=== PATIENT | male | born 1960 | race Caucasian/White ===

== ENCOUNTER 2020-11-14 20:05 | Emergency (ER) | payer MEDICAID, SELFPAY ==
[2020-11-14 20:31] LABS: Basophils # 0.1 10^3/uL (0.0-0.1); Basophils % 0.8 %; Eosinophils # 0.9 10^3/uL (0.0-0.8); Eosinophils % 5.2 %; Hematocrit 48.7 % (42.0-52.0); Hemoglobin 15.8 g/dL (11.7-16.6); Lymphocytes # 2.6 10^3/uL (0.8-4.8); Lymphocytes % 14.9 %; Mean Corpuscular HGB Conc 32.4 g/dL (30.0-36.0); Mean Corpuscular Hemoglobin 28.9 pg (28.0-34.0); Mean Platelet Volume 9.8 fL (7.4-10.4); Monocytes # 1.2 10^3/uL (0.2-0.9); Monocytes % 6.9 %; Neutrophils # 12.45 10^3/uL (1.8-7.7); Neutrophils % 71.4 %; Nucleated Red Blood Cells % 0 %; Platelet Count 349 10^3/cmm (130-400); Red Blood Count 5.47 10^6/uL (4.1-5.3); Red Cell Distribution Width 13.2 % (12.1-15.1); White Blood Count 17.4 10^3/uL (4.0-10.0)
[2020-11-14 21:20] LABS: Troponin(5th) Baseline 14 ng/L (0-15)
[2020-11-14 21:23] LABS: Alanine Aminotransferase 19 U/L (0-41); Albumin Level 3.9 g/dL (3.5-5.2); Alkaline Phosphatase 163 IU/L (40-130); Anion Gap 19.1 (5-19); Aspartate Amino Transferase 20 U/L (0-40); Blood Urea Nitrogen 14 mg/dL (8-23); Calcium 9.4 mg/dL (8.5-10.5); Carbon Dioxide 26 mmol/L (22-29); Chloride 97 mmol/L (98-107); Globulin 3.9 g/dL (1.3-4.6); Glucose 100 mg/dL (65-115); Lipase 22 U/L (13-60); NT Pro B Type Natriuretic Pept 153 pg/mL (0-125); Osmolality Calculated 287 mOsm/kg (285-295); Potassium 4.1 mmol/L (3.5-5.1); Sodium 138 mmol/L (136-145); Total Bilirubin 0.5 mg/dL (0.15-1.2); Total Protein 7.8 g/dL (6.6-8.7)
== END 2020-11-14 20:53 ==
LOC: ER 20:22
PROVIDERS: Emergency Provider Family Medicine; PCP Family Medicine
DX: Z53.21 Procedure and treatment not carried out due to patient leaving prior to being seen by health care provider (principal)
CPT/HCPCS: 80053; 83690; 83880; 84484; 85025

== ENCOUNTER 2021-01-16 00:58 | Inpatient (IN) | payer MEDICAID, SELFPAY ==
[2021-01-16] VITALS (49 sets, daily range): BP systolic 100–168; BP diastolic 62–117; PULSE 83–124; RESP 16–27; TEMP 35.8–37.2; O2SAT 89–98; BMI 44.4
--- NOTE | 2021-01-16 01:39 | ECG_ITS ---
[facility] Test Date: 2021-01-16 Pat Name: Leon Rossi Department: Room: Gender: Male Medical Facilities Section Director: : 1960 Requested By: Anneliese Leslie Order Number: [id number] Jean Marie MD: Colin Machado M.D. Measurements Intervals [place] Rate: 113 P: -35 [place]: 134 QRS: 18 QRSD: 141 T: 3 QT: 394 QTc: 542 Interpretive Statements Possible atrial fibrillation with rapid ventricular rate. INDETERMINATE AXIS RIGHT BUNDLE BRANCH BLOCK [120+ ms QRS DURATION, UPRIGHT V1, 40+ ms S IN I/aVL/V4/V5/V6] ST DEPRESSION, CONSIDER SUBENDOCARDIAL INJURY [0.1+ mV ST DEPRESSION] No previous ECG available for comparison Because of the heavy artifacts, the rhythm is difficult to discern. Need to repeat the study Electronically Signed On 01-16-2021 21:15:45 CDT by Colin Machado M.D. [id number]
[2021-01-16 01:50] LABS: Basophils # 0.1 10^3/uL (0.0-0.1); Basophils % 0.3 %; Hematocrit 46.9 % (42.0-52.0); Hemoglobin 15.2 g/dL (11.7-16.6); Lymphocytes # 1.9 10^3/uL (0.8-4.8); Lymphocytes % 5.9 %; Mean Corpuscular HGB Conc 32.4 g/dL (30.0-36.0); Mean Corpuscular Hemoglobin 27.9 pg (28.0-34.0); Mean Corpuscular Volume 86.1 fL (80-94); Mean Platelet Volume 10.6 fL (7.4-10.4); Monocytes # 2.6 10^3/uL (0.2-0.9); Monocytes % 7.8 %; Neutrophils # 27.85 10^3/uL (1.8-7.7); Neutrophils % 84.8 %; Nucleated Red Blood Cells % 0 %; Platelet Count 407 10^3/cmm (130-400); Red Blood Count 5.45 10^6/uL (4.1-5.3); Red Cell Distribution Width 13.8 % (12.1-15.1)
[2021-01-16 01:58] LABS: White Blood Count 32.8 10^3/uL (4.0-10.0)
[2021-01-16 02:03] LABS: Troponin(5th) Baseline 13 ng/L (0-15)
--- NOTE | 2021-01-16 02:08 | XRR_ITS ---
PROCEDURE INFORMATION: Exam: XR Chest Exam date and time: 01/16/2021 2:08 AM Age: 60 years old Clinical indication: Cough and dyspnea; Additional info: Cough, chest pain, SOB TECHNIQUE: Imaging protocol: XR of the chest. Views: 1 view. COMPARISON: No relevant prior studies available. FINDINGS: Lungs: See Pleural spaces finding. Pleural spaces: The right hemidiaphragm is obscured likely secondary to a right pleural effusion. There are hazy and strandy opacities seen in the right lower hemithorax superimposed over the pleural effusion likely representing right basilar atelectasis versus pneumonia. Heart/Mediastinum: Unremarkable. No cardiomegaly. Bones/joints: Unremarkable. XR/XR chest 1V portable [id number] IMPRESSION: 1. There is a right pleural effusion that obscures the right hemidiaphragm. 2. Hazy in strandy opacities are seen superimposed over the pleural effusion compatible with a right basilar atelectasis versus pneumonia.
--- NOTE | 2021-01-16 02:09 | W.ED.SOB ---
Documented by User: CARLIE Ca 01/17/21 07:04 HPI - SOB/Dyspnea General: Chief Complaint: Shortness of Breath/Dyspnea Stated Complaint: SOB Time Seen by Provider: 01/16/21 01:38 Source: patient Mode of arrival: ambulatory Limitations: no limitations History of Present Illness: HPI Narrative: Patient is a nice 60-year-old male who presents to the ED today with a complaint of generalized weakness, productive cough, shortness of breath, chest pain. He states symptoms have been present over the past week. He saw his PCP in [place] who doubled my Lasix and potassium . He states ever since this I have not felt right . Patient has a PMH of CHF, COPD, DM, HTN. He tells me he normally wears 2L O2 continuously and has had to increase this at home. During my examination patient is not wearing oxygen and satting normally. He tells me he is having pain in the right side of his chest with coughing. He is reporting hemoptysis. He has no dysuria, frequency, or urgency but has noticed very dark brown-colored urine. No fevers. No sick contacts. MD elicited complaint: shortness of breath, cough, pain with inspiration and chest pain Pertinent past history: COPD, congestive heart failure and diabetes Onset (ago): day(s) Timing: constant Severity: moderate Relieving factors: nothing Known history of: COPD, congestive heart failure and diabetes Associated symptoms: Reports chest congestion, chest pain, hemoptysis and orthopnea; Deny abdominal pain, fever(s), lightheadedness, nausea, palpitations, syncope or vomiting Treatment prior to arrival: none Related Data: Home oxygen amount: 2 liters Review of Systems Const: Reports: fatigue and malaise; Denies: fever(s), chills, body aches, change in appetite or change in weight Eyes: Denies: change in vision, blurry vision, photophobia, floaters or seeing flashes ENMT: Denies: throat pain, odynophagia, nasal discharge or nasal congestion Card: Reports: chest pain, edema, swelling of feet/ankles, dyspnea on exertion and orthopnea; Denies: palpitations, irregular heart rhythm, lightheadedness, syncope, pre-syncope, leg pain with exertion or acrocyanosis Resp: Reports: dyspnea, productive cough, pain on inspiration, hemoptysis and chest congestion; Denies: wheezing or stridor GI: Denies: abdominal pain, nausea, vomiting or diarrhea : Denies: flank pain or dysuria Musc: Denies: neck pain or back pain Skin/Breast: Denies: rash Neuro: Denies: headache(s), numbness in extremities, weakness in extremities or sensory changes PFS ED PFSH: Medical History (Updated 01/16/21 @ 23:08 by Aman Davis MD) CHF (congestive heart failure) COPD (chronic obstructive pulmonary disease) Diabetes HTN (hypertension) Surgical History History of appendectomy History of cholecystectomy Family History Other Diabetes Social History Smoking and tobacco status: current every day smoker cigarettes Alcohol intake: never Housing: House Physical Exam Const: COMMON NORMALS: no acute distress, patient oriented x3, no limitations and alert GENERAL APPEARANCE: cooperative NUTRITIONAL APPEARANCE: obese morbidly obese ORIENTATION/CONSCIOUSNESS: Yes awake, Yes oriented to person, Yes oriented to place and Yes oriented to time HENMT: COMMON NORMALS: normocephalic and atraumatic HEAD & SCALP: normocephalic and atraumatic Chest: OTHER: TTP R lateral lower chest wall Resp: COMMON NORMALS: normal respiratory effort EFFORT & INSPECTION: Yes able to speak in complete sentences AUSCULTATION: crackles Laterality: bilateral Cardio: COMMON NORMALS: regular rhythm RATE: tachycardic RHYTHM: regular rhythm GI: COMMON NORMALS: Soft to palpation and non-tender INSPECTION: Yes normal to inspection PALPATION: Yes Soft to palpation OTHER: limited secondary to body habitus : COMMON NORMALS: Yes no CVA tenderness BLADDER/KIDNEY EXAM: Yes no CVA tenderness Back/Pelvis: COMMON NORMALS: no CVA tenderness Extremity: GENERAL: Yes edema Neuro: ROBBIE COMA SCALE: document GCS findings Robbie coma scale eye opening: Spontaneous Robbie coma scale verbal response: Orientated [place] coma scale motor response: Obey commands [place] coma scale total score: 15 COMMON NORMALS: patient oriented x3 SENSORIUM/ORIENTATION: Yes alert, Yes oriented to person, Yes oriented to place and Yes oriented to time Skin: COMMON NORMALS: no rashes or lesions noted GENERAL SKIN EXAM: no rashes or lesions noted Course Vital Signs: Vital signs: Vital Signs Temperature 97.5 F L 01/17/21 06:16 Pulse Rate 113 H 01/17/21 06:36 Respiratory Rate 16 01/17/21 06:01 Blood Pressure 137/94 01/16/21 17:15 Pulse Oximetry 94 01/17/21 06:01 MDM - SOB/Dyspnea MDM Narrative: Medical decision making narrative: Patient is a 60-year-old male with significant comorbidities here for complaints of weakness, productive cough, right-sided chest pain, and shortness of breath. He arrives tachycardic. He has a white count of 30.4. He is hypokalemic. CXR showing large right-sided pneumonia. His D-dimer was very elevated therefore CTA imaging is being obtained. Care is transferred to Dr. Torres at shift change. Lab Data: Labs: Lab Results 01/16/21 01/16/21 01/16/21 Range/Units 00:12 00:12 00:12 WBC 32.8 H* (4.0-10.0) 10^3/ uL RBC 5.45 H (4.1-5.3) 10^6/u L Hgb 15.2 (11.7-16.6) g/dL Hct 46.9 (42.0-52.0) % MCV 86.1 (80-94) fL MCH 27.9 L (28.0-34.0) pg MCHC 32.4 (30.0-36.0) g/dL RDW 13.8 (12.1-15.1) % Plt Count 407 H (130-400) 10^3/c mm MPV 10.6 H (7.4-10.4) fL Neut % (Auto) 84.8 % Lymph % (Auto) 5.9 % [place] % (Auto) 7.8 % Eos % (Auto) 0.0 % Baso % (Auto) 0.3 % Neut # (Auto) 27.85 H (1.8-7.7) 10^3/u L Lymph # (Auto) 1.9 (0.8-4.8) 10^3/u L [place] # (Auto) 2.6 H (0.2-0.9) 10^3/u L Eos # (Auto) 0.0 (0.0-0.8) 10^3/u L Baso # (Auto) 0.1 (0.0-0.1) 10^3/u L Nucleated RBC % (a uto) 0 % Nucleated RBCs # 0.0 /100WBC D-Dimer (0-0.59) ug/mIFE U Sodium 130 L (136-145) mmol/L Potassium 2.9 L (3.5-5.1) mmol/L Chloride 85 L (98-107) mmol/L Carbon Dioxide 28 (22-29) mmol/L Anion Gap 19.9 H (5-19) BUN 16 (8-23) mg/dL Creatinine 0.8 (0.7-1.2) mg/dL GFR Calculation 98.0 (90-130) mL/min Glucose 145 H (65-115) mg/dL Calculated Osmolal ity 274 L (285-295) mOsm/k g Lactic Acid (0.5-2.2) mmol/L Calcium 9.6 (8.5-10.5) mg/dL Magnesium (1.7-2.3) mg/dL Total Bilirubin 1.4 H (0.15-1.2) mg/dL AST 16 (0-40) U/L ALT 9 (0-41) U/L Alkaline Phosphata se 117 (40-130) IU/L Lactate Dehydrogen ase (135-225) U/L Troponin T Baselin e 13 (0-15) ng/L NT-Pro-B Natriuret Pep 873 H (0-125) pg/mL Total Protein 7.6 (6.6-8.7) g/dL Albumin 3.0 L (3.5-5.2) g/dL Globulin 4.6 (1.3-4.6) g/dL Procalcitonin (0-0.5) ng/mL SARS-CoV-2 Ag (Rap id) (Negative) 01/16/21 01/16/21 01/16/21 Range/Units 00:12 00:12 00:12 WBC (4.0-10.0) 10^3/ uL RBC (4.1-5.3) 10^6/u L Hgb (11.7-16.6) g/dL Hct (42.0-52.0) % MCV (80-94) fL MCH (28.0-34.0) pg MCHC (30.0-36.0) g/dL RDW (12.1-15.1) % Plt Count (130-400) 10^3/c mm MPV (7.4-10.4) fL Neut % (Auto) % Lymph % (Auto) % [place] % (Auto) % Eos % (Auto) % Baso % (Auto) % Neut # (Auto) (1.8-7.7) 10^3/u L Lymph # (Auto) (0.8-4.8) 10^3/u L [place] # (Auto) (0.2-0.9) 10^3/u L Eos # (Auto) (0.0-0.8) 10^3/u L Baso # (Auto) (0.0-0.1) 10^3/u L Nucleated RBC % (a uto) % Nucleated RBCs # /100WBC D-Dimer 3.64 H (0-0.59) ug/mIFE U Sodium (136-145) mmol/L Potassium (3.5-5.1) mmol/L Chloride (98-107) mmol/L Carbon Dioxide (22-29) mmol/L Anion Gap (5-19) BUN (8-23) mg/dL Creatinine (0.7-1.2) mg/dL GFR Calculation (90-130) mL/min Glucose (65-115) mg/dL Calculated Osmolal ity (285-295) mOsm/k g Lactic Acid (0.5-2.2) mmol/L Calcium (8.5-10.5) mg/dL Magnesium 2.1 (1.7-2.3) mg/dL Total Bilirubin (0.15-1.2) mg/dL AST (0-40) U/L ALT (0-41) U/L Alkaline Phosphata se (40-130) IU/L Lactate Dehydrogen ase 148 (135-225) U/L Troponin T Baselin e (0-15) ng/L NT-Pro-B Natriuret Pep (0-125) pg/mL Total Protein (6.6-8.7) g/dL Albumin (3.5-5.2) g/dL Globulin (1.3-4.6) g/dL Procalcitonin 1.35 H (0-0.5) ng/mL SARS-CoV-2 Ag (Rap id) (Negative) 01/16/21 01/16/21 Range/Units 02:18 02:31 WBC (4.0-10.0) 10^3/ uL RBC (4.1-5.3) 10^6/u L Hgb (11.7-16.6) g/dL Hct (42.0-52.0) % MCV (80-94) fL MCH (28.0-34.0) pg MCHC (30.0-36.0) g/dL RDW (12.1-15.1) % Plt Count (130-400) 10^3/c mm MPV (7.4-10.4) fL Neut % (Auto) % Lymph % (Auto) % [place] % (Auto) % Eos % (Auto) % Baso % (Auto) % Neut # (Auto) (1.8-7.7) 10^3/u L Lymph # (Auto) (0.8-4.8) 10^3/u L [place] # (Auto) (0.2-0.9) 10^3/u L Eos # (Auto) (0.0-0.8) 10^3/u L Baso # (Auto) (0.0-0.1) 10^3/u L Nucleated RBC % (a uto) % Nucleated RBCs # /100WBC D-Dimer (0-0.59) ug/mIFE U Sodium (136-145) mmol/L Potassium (3.5-5.1) mmol/L Chloride (98-107) mmol/L Carbon Dioxide (22-29) mmol/L Anion Gap (5-19) BUN (8-23) mg/dL Creatinine (0.7-1.2) mg/dL GFR Calculation (90-130) mL/min Glucose (65-115) mg/dL Calculated Osmolal ity (285-295) mOsm/k g Lactic Acid 3.2 H (0.5-2.2) mmol/L Calcium (8.5-10.5) mg/dL Magnesium (1.7-2.3) mg/dL Total Bilirubin (0.15-1.2) mg/dL AST (0-40) U/L ALT (0-41) U/L Alkaline Phosphata se (40-130) IU/L Lactate Dehydrogen ase (135-225) U/L Troponin T Baselin e (0-15) ng/L NT-Pro-B Natriuret Pep (0-125) pg/mL Total Protein (6.6-8.7) g/dL Albumin (3.5-5.2) g/dL Globulin (1.3-4.6) g/dL Procalcitonin (0-0.5) ng/mL SARS-CoV-2 Ag (Rap id) Negative (Negative) Discharge Plan Discharge Patient Disposition: Admitted As Inpatient Admit Provider: Jose R Guthrie Clinical Impression: Mass of right lung CAP (community acquired pneumonia) Qualifiers: Laterality: right Lung location: lower lobe of lung Qualified Code(s): J18.9 - Pneumonia, unspecified organism Condition: Serious Coding Level of Care Code ED Blueprinting Machine Operator for Chg Fwd Exam Comprehensive Documented by User: Jarett Torres, 01/16/21 08:54 HPI - SOB/Dyspnea General: Chief Complaint: Shortness of Breath/Dyspnea Stated Complaint: SOB Time Seen by Provider: 01/16/21 01:38 PFS ED PFSH: Medical History (Updated 01/16/21 @ 23:08 by Aman Davis MD) CHF (congestive heart failure) COPD (chronic obstructive pulmonary disease) Diabetes HTN (hypertension) Surgical History History of appendectomy History of cholecystectomy Family History Other Diabetes Social History Smoking and tobacco status: current every day smoker cigarettes Alcohol intake: never Housing: House Course Consultations: Consultation #1: timur Vital Signs: Vital signs: Vital Signs Temperature 97.5 F L 01/17/21 06:16 Pulse Rate 113 H 01/17/21 06:36 Respiratory Rate 16 01/17/21 06:01 Blood Pressure 137/94 01/16/21 17:15 Pulse Oximetry 94 01/17/21 06:01 MDM - SOB/Dyspnea MDM Narrative: Medical decision making narrative: 60-year-old male originally seen by Mrs. Leslie?KWESI Fleming. I agree with her history, evaluation, work-up, and treatment. This patient has hypoxia, shortness of breath, white blood cell count of 33, a low potassium which is being replaced, and pneumonia on chest x-ray. CTA is performed and shows pneumonia with likely empyema. He will be admitted. Lab Data: Labs: Lab Results 01/16/21 01/16/21 01/16/21 Range/Units 00:12 00:12 00:12 WBC 32.8 H* (4.0-10.0) 10^3/ uL RBC 5.45 H (4.1-5.3) 10^6/u L Hgb 15.2 (11.7-16.6) g/dL Hct 46.9 (42.0-52.0) % MCV 86.1 (80-94) fL MCH 27.9 L (28.0-34.0) pg MCHC 32.4 (30.0-36.0) g/dL RDW 13.8 (12.1-15.1) % Plt Count 407 H (130-400) 10^3/c mm MPV 10.6 H (7.4-10.4) fL Neut % (Auto) 84.8 % Lymph % (Auto) 5.9 % [place] % (Auto) 7.8 % Eos % (Auto) 0.0 % Baso % (Auto) 0.3 % Neut # (Auto) 27.85 H (1.8-7.7) 10^3/u L Lymph # (Auto) 1.9 (0.8-4.8) 10^3/u L [place] # (Auto) 2.6 H (0.2-0.9) 10^3/u L Eos # (Auto) 0.0 (0.0-0.8) 10^3/u L Baso # (Auto) 0.1 (0.0-0.1) 10^3/u L Nucleated RBC % (a uto) 0 % Nucleated RBCs # 0.0 /100WBC D-Dimer (0-0.59) ug/mIFE U Sodium 130 L (136-145) mmol/L Potassium 2.9 L (3.5-5.1) mmol/L Chloride 85 L (98-107) mmol/L Carbon Dioxide 28 (22-29) mmol/L Anion Gap 19.9 H (5-19) BUN 16 (8-23) mg/dL Creatinine 0.8 (0.7-1.2) mg/dL GFR Calculation 98.0 (90-130) mL/min Glucose 145 H (65-115) mg/dL Calculated Osmolal ity 274 L (285-295) mOsm/k g Lactic Acid (0.5-2.2) mmol/L Calcium 9.6 (8.5-10.5) mg/dL Magnesium (1.7-2.3) mg/dL Total Bilirubin 1.4 H (0.15-1.2) mg/dL AST 16 (0-40) U/L ALT 9 (0-41) U/L Alkaline Phosphata se 117 (40-130) IU/L Lactate Dehydrogen ase (135-225) U/L Troponin T Baselin e 13 (0-15) ng/L NT-Pro-B Natriuret Pep 873 H (0-125) pg/mL Total Protein 7.6 (6.6-8.7) g/dL Albumin 3.0 L (3.5-5.2) g/dL Globulin 4.6 (1.3-4.6) g/dL Procalcitonin (0-0.5) ng/mL SARS-CoV-2 Ag (Rap id) (Negative) 01/16/21 01/16/21 01/16/21 Range/Units 00:12 00:12 00:12 WBC (4.0-10.0) 10^3/ uL RBC (4.1-5.3) 10^6/u L Hgb (11.7-16.6) g/dL Hct (42.0-52.0) % MCV (80-94) fL MCH (28.0-34.0) pg MCHC (30.0-36.0) g/dL RDW (12.1-15.1) % Plt Count (130-400) 10^3/c mm MPV (7.4-10.4) fL Neut % (Auto) % Lymph % (Auto) % [place] % (Auto) % Eos % (Auto) % Baso % (Auto) % Neut # (Auto) (1.8-7.7) 10^3/u L Lymph # (Auto) (0.8-4.8) 10^3/u L [place] # (Auto) (0.2-0.9) 10^3/u L Eos # (Auto) (0.0-0.8) 10^3/u L Baso # (Auto) (0.0-0.1) 10^3/u L Nucleated RBC % (a uto) % Nucleated RBCs # /100WBC D-Dimer 3.64 H (0-0.59) ug/mIFE U Sodium (136-145) mmol/L Potassium (3.5-5.1) mmol/L Chloride (98-107) mmol/L Carbon Dioxide (22-29) mmol/L Anion Gap (5-19) BUN (8-23) mg/dL Creatinine (0.7-1.2) mg/dL GFR Calculation (90-130) mL/min Glucose (65-115) mg/dL Calculated Osmolal ity (285-295) mOsm/k g Lactic Acid (0.5-2.2) mmol/L Calcium (8.5-10.5) mg/dL Magnesium 2.1 (1.7-2.3) mg/dL Total Bilirubin (0.15-1.2) mg/dL AST (0-40) U/L ALT (0-41) U/L Alkaline Phosphata se (40-130) IU/L Lactate Dehydrogen ase 148 (135-225) U/L Troponin T Baselin e (0-15) ng/L NT-Pro-B Natriuret Pep (0-125) pg/mL Total Protein (6.6-8.7) g/dL Albumin (3.5-5.2) g/dL Globulin (1.3-4.6) g/dL Procalcitonin 1.35 H (0-0.5) ng/mL SARS-CoV-2 Ag (Rap id) (Negative) 01/16/21 01/16/21 Range/Units 02:18 02:31 WBC (4.0-10.0) 10^3/ uL RBC (4.1-5.3) 10^6/u L Hgb (11.7-16.6) g/dL Hct (42.0-52.0) % MCV (80-94) fL MCH (28.0-34.0) pg MCHC (30.0-36.0) g/dL RDW (12.1-15.1) % Plt Count (130-400) 10^3/c mm MPV (7.4-10.4) fL Neut % (Auto) % Lymph % (Auto) % [place] % (Auto) % Eos % (Auto) % Baso % (Auto) % Neut # (Auto) (1.8-7.7) 10^3/u L Lymph # (Auto) (0.8-4.8) 10^3/u L [place] # (Auto) (0.2-0.9) 10^3/u L Eos # (Auto) (0.0-0.8) 10^3/u L Baso # (Auto) (0.0-0.1) 10^3/u L Nucleated RBC % (a uto) % Nucleated RBCs # /100WBC D-Dimer (0-0.59) ug/mIFE U Sodium (136-145) mmol/L Potassium (3.5-5.1) mmol/L Chloride (98-107) mmol/L Carbon Dioxide (22-29) mmol/L Anion Gap (5-19) BUN (8-23) mg/dL Creatinine (0.7-1.2) mg/dL GFR Calculation (90-130) mL/min Glucose (65-115) mg/dL Calculated Osmolal ity (285-295) mOsm/k g Lactic Acid 3.2 H (0.5-2.2) mmol/L Calcium (8.5-10.5) mg/dL Magnesium (1.7-2.3) mg/dL Total Bilirubin (0.15-1.2) mg/dL AST (0-40) U/L ALT (0-41) U/L Alkaline Phosphata se (40-130) IU/L Lactate Dehydrogen ase (135-225) U/L Troponin T Baselin e (0-15) ng/L NT-Pro-B Natriuret Pep (0-125) pg/mL Total Protein (6.6-8.7) g/dL Albumin (3.5-5.2) g/dL Globulin (1.3-4.6) g/dL Procalcitonin (0-0.5) ng/mL SARS-CoV-2 Ag (Rap id) Negative (Negative) Discharge Plan Discharge Patient Disposition: Admitted As Inpatient Admit Provider: Jose R Guthrie Clinical Impression: Mass of right lung CAP (community acquired pneumonia) Qualifiers: Laterality: right Lung location: lower lobe of lung Qualified Code(s): J18.9 - Pneumonia, unspecified organism Condition: Serious Coding Level of Care Code ED Blueprinting Machine Operator for Zaida Fwd Exam Comprehensive
[2021-01-16 02:12] LABS: Alanine Aminotransferase 9 U/L (0-41); Alkaline Phosphatase 117 IU/L (40-130); Anion Gap 19.9 (5-19); Aspartate Amino Transferase 16 U/L (0-40); Blood Urea Nitrogen 16 mg/dL (8-23); Calcium 9.6 mg/dL (8.5-10.5); Carbon Dioxide 28 mmol/L (22-29); Chloride 85 mmol/L (98-107); Globulin 4.6 g/dL (1.3-4.6); Glucose 145 mg/dL (65-115); NT Pro B Type Natriuretic Pept 873 pg/mL (0-125); Osmolality Calculated 274 mOsm/kg (285-295); Sodium 130 mmol/L (136-145); Total Bilirubin 1.4 mg/dL (0.15-1.2); Total Protein 7.6 g/dL (6.6-8.7)
[2021-01-16 02:16] LABS: Potassium 2.9 mmol/L (3.5-5.1)
[2021-01-16] MEDS: lidocaine 1% 5 ML in potassium chloride premix 100 ML 25 ML IV (02:31)
[2021-01-16 02:44] LABS: Lactic Sepsis W/Reflex 3.2 mmol/L (0.5-2.2)
[2021-01-16 02:53] LABS: D Dimer 3.64 ug/mIFEU (0-0.59)
[2021-01-16 02:54] LABS: Magnesium 2.1 mg/dL (1.7-2.3)
[2021-01-16 02:58] LABS: SARS Covid-2 Antigen Negative (Negative)
[2021-01-16 03:01] LABS: Procalcitonin 1.35 ng/mL (0-0.5)
--- NOTE | 2021-01-16 03:01 | CTR_ITS ---
PROCEDURE INFORMATION: Exam: CTA Chest With Contrast Exam date and time: 01/16/2021 3:01 AM Age: 60 years old Clinical indication: Abnormal findings; Abnormal diagnostic tests and abnormal radiologic exam of lung or chest; Elevated d-dimer; Additional info: Tachycardia, SOB, elevated d dimer TECHNIQUE: Imaging protocol: Computed tomographic angiography of the chest with contrast. 3D rendering (Not supervised by radiologist): MIP and/or 3D reconstructed images were created by the technologist. Radiation optimization: All CT scans at this facility use at least one of these dose optimization techniques: automated exposure control; mA and/or kV adjustment per patient size (includes targeted exams where dose is matched to clinical indication); or iterative reconstruction. Contrast material: OMNI 350; Contrast volume: 95 ml; Contrast route: INTRAVENOUS (IV); COMPARISON: CR (CHEST, ) 01/16/2021 2:35 AM RADIATION DOSE METRICS: Total DLP (mGy-cm): 1226.2 FINDINGS: Pulmonary arteries: Normal. No pulmonary emboli. Aorta: Unremarkable. No aortic aneurysm. No aortic dissection. Lungs: There is a masslike infiltrates seen in the superior segment the right lower lobe that measures 3.9 x 4.9 x 4.5 cm . There are patchy opacities and consolidation seen within the right lower lobe superimposed over the loculated pleural fluid collection. There are mildly prominent mediastinal and right hilar lymph nodes present, largest is seen in the posterior mediastinum adjacent to the esophagus near the level of the tomi measuring 11 mm in transverse dimension. Pleural spaces: There is a loculated appearing right pleural effusion. There are mottled gas densities seen within the pleural fluid, findings worrisome for empyema. Heart: Unremarkable. No cardiomegaly. No pericardial effusion. Lymph nodes: Unremarkable. No enlarged lymph nodes. Bones/joints: Unremarkable. No acute fracture. Soft tissues: Unremarkable. CT/CT angio chest PE protcl [id number] IMPRESSION: 1. There is no evidence for pulmonary emboli. 2. There is a loculated pleural fluid collection seen on the right containing some mottled gas densities, findings worrisome for empyema. 3. Patchy opacities, consolidation and masslike infiltrates are seen in the right lower lobe superimposed over the loculated pleural fluid collection. Aspiration pneumonia with anaerobic organisms could have this appearance. Underlying bronchogenic mass cannot be excluded as well. Radiation Dose CTDIVOL = (mGy): DLP = 1226.2 (mGy-cm)
[2021-01-16] MEDS: sodium chloride 0.9% 1,000 ML 150 ML IV (03:36)
[2021-01-16] MEDS: midazolam 1 mg/mL INJ 2 mL 2 MG IVP (03:37)
--- NOTE | 2021-01-16 03:58 | PM.HP ---
Providers/Chief Complaint Primary Care Provider: Michael Washington Chief Complaint: SOB History of Present Illness Leon Rossi is a 60 year old male who has history of diabetes, hypertension, oxygen dependent COPD, CHF, active smoker, presented today with chief complaint of worsening shortness of breath. Patient is stating that his symptoms started on Saturday with worsening of productive cough, lethargy, fatigue. He went to his PCP who increased his Lasix from 40 mg to 80 mg and incremented potassium supplementation. His symptoms did not resolve he has been experiencing orthopnea, PND, shortness of breath on exertion without any chest pain, he is endorsing subjective fevers, denying nausea, vomiting or diarrhea. His last bowel movement was about 4 to 5 days ago. He is endorsing night sweats, 15 to 20 pound weight loss which is unintentional, he is smoking about 2 packs/day. Diagnostics in the ER revealed sepsis secondary to pneumonia, CTA rule out PE, diagnostics leukocytosis, thrombocytosis, hypokalemia, received Levaquin in the ER, normal saline was started at 150 mL/h which I would discontinue, D-dimer 3000, will request urine antigens and procalcitonin, lactic acid 3.2 IMPRESSION: 1. There is no evidence for pulmonary emboli. 2. There is a loculated pleural fluid collection seen on the right containing some mottled gas densities, findings worrisome for empyema. 3. Patchy opacities, consolidation and masslike infiltrates are seen in the right lower lobe superimposed over the loculated pleural fluid collection. Aspiration pneumonia with anaerobic organisms could have this appearance. Underlying bronchogenic mass cannot be excluded as well. Review of Systems Const: Reports: fever(s), chills, body aches, change in appetite, change in weight, malaise and night sweats Eyes: Denies: change in vision ENMT: Denies: throat pain Card: Reports: swelling of feet/ankles, dyspnea on exertion and orthopnea; Denies: chest pain Resp: Reports: dyspnea and productive cough GI: Reports: abdominal pain and constipation; Denies: nausea or vomiting : Denies: flank pain Musc: Reports: extremity swelling; Denies: neck pain Skin/Breast: Denies: new lesions Neuro: Denies: headache(s) Psych: Denies: anxiety Endo: Denies: polyuria Saad/Lymph: Denies: easy bruising All/Imm: Denies: urticaria Medications/Allergies Allergies Allergy/AdvReac Type Severity Reaction Status Date / Time Antibiotic Allergy Intermediate ADR-Numbnes Uncoded 01/16/21 01:25 s PFSH Acute PFSH: Medical History (Updated 01/16/21 @ 05:38 by Jose R Guthrie MD) CHF (congestive heart failure) COPD (chronic obstructive pulmonary disease) Diabetes HTN (hypertension) Surgical History (Updated 01/16/21 @ 05:37 by Jose R Guthrie MD) History of appendectomy History of cholecystectomy Family History (Updated 01/16/21 @ 05:37 by Jose R Guthrie MD) Other Diabetes Social History (Updated 01/16/21 @ 05:37 by Jose R Guthrie MD) Smoking and tobacco status: current every day smoker cigarettes Alcohol intake: never Substance/Drug Use: never Housing: House Vitals/I&O/Wt Last Vital Signs Temp 99.0 F 01/16/21 01:13 Pulse 116 H 01/16/21 03:35 Resp 18 01/16/21 03:35 BP 135/100 01/16/21 03:35 Pulse Ox 93 01/16/21 03:35 Weight last 48 hrs Weight 140.614 kg Physical Exam Narrative: EXAM NARRATIVE: Middle-age male morbidly obese currently saturating well on room air Clinically fluid overloaded, S1, S2 Signs of heart failure Mottled skin appearance from knees No active signs of gangrene or cyanosis Bilateral breath sounds with rhonchi and crackles at the base with diminished sounds at right lung base Distended abdomen nontender no signs of peritonitis Lower extremity pitting edema EOMI, PERRLA No neurological deficits Awake alert oriented x3 GCS 15 Data : 01/16/21 00:12 01/16/21 00:12 Micro: Microbiology 01/16/21 02:31 Blood Culture - Preliminary Blood SPECIMEN COLLECTED 01/16/21 02:16 Blood Culture - Preliminary Blood SPECIMEN COLLECTED A&P Assessment and plan (1) Sepsis: Status: Acute (2) Hypokalemia: Status: Acute (3) CHF exacerbation: Status: Acute (4) CAP (community acquired pneumonia): Status: Acute (5) Mass of right lung: Status: Acute Additional A&P Information Sepsis Criteria met with tachypnea, tachycardia, lactic acid, leukocytosis, CTA rule out PE loculated pleural effusion rule out empyema, will need chest tube placement and pulmonary consult in the morning Superior segment of right lower lobe showing masslike infiltrate 3.9 x 4.9 x 4.5 cm I will start him on broad-spectrum antibiotics and keep him n.p.o. Judicious use of fluids because of CHF exacerbation Currently saturating well on room air Requested urine antigen, blood culture We will admit to ICU, patient does endorse night sweats and 50 pound weight loss, heavy smoker, will need bronchoscopy and histopathological diagnosis to rule out malignancy Hypokalemia: This seems secondary to recent increase in Lasix dosage Potassium to be repleted before initiating Bumex Check magnesium level CHF exacerbation Will request echo, clinically looks fluid overloaded No active chest pain no signs of ACS He has chronic blue bloater appearance which would explain his abnormal transaminases as well N.p.o. Full code DVT prophylaxis avoid anticoagulation as he will need chest tube placement Attestations Medical Necessity Statement*: Anticipating stay in the hospital cross more than 2 midnights will need management for right lung mass, empyema, sepsis Time Spent in Patient Care: (>than 50% of time spent in counselling and/or direct pt care on unit). 35mins Coding Level of Care Code Acute Administrative Hearing Officer for g Fwd Diagnoses Sepsis A41.9 Hypokalemia E87.6 CHF exacerbation I50.9 CAP (community acquired pneumonia) J18.9 Mass of right lung R91.8
[2021-01-16] MEDS: iodixanol 320 mg/mL 100mL Btl IV (04:00)
[2021-01-16 04:07] LABS: Reflex Lactate Order REFLEX LACTIC ORDERD
--- NOTE | 2021-01-16 04:52 | PC.NURSE ---
attempted to call report and nurse was busy at this time.
--- NOTE | 2021-01-16 06:03 | PC.PHAR ---
Vancomycin is dosed at 1250mg IVPB evvery 8 hours to produce a predicted trough level of 13.16 (population based pharmacokinetic analysis). A trough level has been ordered from the lab to be obtained before the fourth dose to confirm and adjust.
[2021-01-16 06:37] LABS: Lactate Dehydrogenase 148 U/L (135-225)
[2021-01-16] MEDS: piperacillin-tazobactam 3.375 GM in sodium chloride 0.9% (plus) 50 ML IV ×3 (06:47→20:30)
[2021-01-16] MEDS: potassium chloride oral liq 20 mEq/15 mL UDC 40 MEQ PO (06:57)
--- NOTE | 2021-01-16 07:15 | PC.NURSE ---
ASSUMING CARE Patient brought to unit from Med/Surg unit. Patient is on room air, alert and oriented. Normal saline running at 150 mL/hour, potassium replacement finished, and zosyn hung. Report given to CARLOS Haji.
--- NOTE | 2021-01-16 09:17 | PC.NURSE ---
DR bass and Dr fuentes at bedside verbal instructions received to start lactulose 15mg po BID and a one time dose of levoquin PO 750mg
[2021-01-16] MEDS: bumetanide 1 mg Tablet PO (09:27)
[2021-01-16] MEDS: sennosides-docusate Tablet 1 TAB PO (09:27)
[2021-01-16] MEDS: levoFLOXacin 750 mg Tablet PO (09:27)
[2021-01-16] MEDS: lactulose oral liq 20 gm/30 mL UDC 15 GM PO ×2 (09:28→20:27)
[2021-01-16] MEDS: vancomycin 1,250 MG/250 ML PIGGYBACK 250 MG IV (10:44)
--- NOTE | 2021-01-16 11:03 | PM.PN ---
Subjective Subjective: Interval history: overnight labs and H&P reviewed. No acute interim events. Intermittent A fib noted on telemetry, Planned for bronchoscopy this afternoon. Not enough fluid to safely attempt thoracentesis Medications: Reviewed: Yes Vitals/I&O/Wt Last Vital Signs Temp 98.0 F 01/16/21 06:25 Pulse 107 H 01/16/21 08:02 Resp 16 01/16/21 08:02 BP 155/99 01/16/21 07:30 Pulse Ox 92 01/16/21 08:02 01/15/21 01/16/21 01/16/21 22:59 06:59 14:59 Intake Total 105 / 105 1050 / 1050 Balance 105 / 105 1050 / 1050 Weight last 48 hrs Weight 140.614 kg Physical Exam Narrative: EXAM NARRATIVE: GEN: Awake, alert and oriented, no acute distress CVS: S1S2 N RS: Reducd breath sounds RLL Abd: Soft, nt/nd , bs+ CASE MANAGEMENT SOCIAL WORKER: no focal neuro deficits Ext: 1+ pitting edema B/L LE Data : 01/16/21 00:12 01/16/21 00:12 Micro: Microbiology 01/16/21 02:31 Blood Culture - Preliminary Blood SPECIMEN COLLECTED 01/16/21 02:16 Blood Culture - Preliminary Blood SPECIMEN COLLECTED A&P Assessment and plan (1) Sepsis: Status: Acute (2) Hypokalemia: Status: Acute (3) CHF exacerbation: Status: Acute (4) CAP (community acquired pneumonia): Status: Acute Qualifiers: Laterality: right Lung location: lower lobe of lung Qualified Code(s): J18.9 - Pneumonia, unspecified organism (5) Mass of right lung: Status: Acute Additional A&P Information Sepsis Likely secondary to pneumonia +/- empyema, currently under evalaution, cannot exclude post obstructive pneumonia from mass at this time. Criteria met with tachypnea, tachycardia, lactic acid, leukocytosis, CTA ruled out PE ; loculated pleural effusion noted, no good window to drain safely Appreciate pulmonary assessment planned for bronchoscopy this afternoon Superior segment of right lower lobe showing masslike infiltrate 3.9 x 4.9 x 4.5 cm continue zosyn, vancomycin and levaquin empirically cytology and cx from bronch and BAL aspirate Requested urine antigen, blood culture, pending Hypokalemia: This seems secondary to recent increase in Lasix dosage Potassium replted Intermittent A fib: not new per history, has been evaluated by showroom executive director in [place], was told he has a leaky valve but has not been recommended surgical correction or anticoagulation. Echo requested resume metoprolol No active chest pain no signs of ACS N.p.o. Full code DVT prophylaxis: SCD for now until bronchoscopy Attestations Medical Necessity Statement*: empyema, possible lung mass, sepsis, needs iv abx. bronchoscopy and furthjer assessment Critical Care Time: The high probability of a clinically significant, sudden or life threatening deterioration of the patient's [respiratory] system(s) required my full and direct attention, intervention and personal management. The critical care time is as shown. This time is in addition to time spent performing any reported procedures but includes the following: [x] Data and vital sign review and interpretation [x] Patient assessment, examination and intervention [x] Documentation [x] Medication orders and management Critical Care Time (min): 40 Coding Level of Care Code Acute Technical Editor for [facility] Fwd Diagnoses Sepsis A41.9 Hypokalemia E87.6 CHF exacerbation I50.9 CAP (community acquired pneumonia) J18.9 Laterality: right Lung location: lower lobe of lung Mass of right lung R91.8
--- NOTE | 2021-01-16 11:15 | USCV_ITS ---
Leon Rossi Age: 60 Gender: M : 1960 Exam Date: 01/16/2021 14:23 Ordering Phys: Shauna Toussaint MD Technologist: Exam Location: [facility] – [place] Indication: SOB BP: 148 / 82 HR: 82 Rhythm: Sinus Technical Quality: Suboptimal MEASUREMENTS (Male / Female) Normal Values 2D ECHO LV Ejection Fraction MOD 2C 64.2 % LV Ejection Fraction 2C AL 64.0 % DOPPLER AV Peak Velocity 206.0 cm/s LVOT Peak Velocity 80.0 cm/s MV Area PHT 5.0 cm squared Mitral E to A Ratio 0.8 MV E' Velocity 93.0 cm/s TR Peak Velocity 179.0 cm/s TR Peak Gradient 12.8 mmHg TV Peak E Velocity 124.0 cm/s Right Atrial Pressure 3.0 mmHg Pulmonary Artery Systolic Pressu 15.8 mmHg FINDINGS Left Ventricle This is a limited 2D echocardiogram using echo contrast. LV size is normal. Ejection fraction estimated to be 64%. No significant wall motion abnormalities noted. No filling defects were noted. Some evidence of grade 1 left ventricular diastolic dysfunction. Right Ventricle Right Atrium Left Atrium Mitral Valve Aortic Valve [id number] aortic valve regurgitation. Tricuspid Valve Pulmonic Valve Pericardium No pericardial effusion. Aorta CONCLUSIONS Normal LV size ejection fraction of 64%. No significant wall motion abnormalities noted. No filling defects were noted. Some evidence of grade 1 left ventricular diastolic dysfunction. [id number] aortic valve regurgitation. This is a limited 2D examination with a contrast echo Dr Colin Machado MD FACC (Electronically Signed) Final Date: 17 January 2021 09:20 S
[2021-01-16] MEDS: metoprolol tartrate 25 mg Tablet PO (12:34)
--- NOTE | 2021-01-16 12:48 | PC.CHAP ---
Pastoral Care Encounter/Spiritual Assessment Type of Contact [] Declined private duty nurse visit [] Patient/Family/Request visit [] Outpatient visit [x] Follow-up visit [] Physician referral [] Code/Alert [] Routine visit [] Staff referral [] Actively dying [x] Patient sleeping [] Family support [] [] Out of room [] Palliative care [] [] Receiving care in room [] Pre-surgical visit [] Trauma [] Long length of stay [] ICU visit [] Other: Relational/Emotional Strength [] Patient feels connected with others/family/visitors/staff [] Distress [] Loneliness/isolation [] Abandonment Spirituality of Patient [] Person of Alexsandra [] Attends Christianity of their Alexsandra [] Believes in Prayer [] Reads Bible or Sikh materials [] There are Spiritual issues to be addressed Cylindrical Mixer Interventions [] Prayer [] Active listening [] Non-anxious presence [] Spiritual/emotional support [] Crisis/trauma care [] Spiritual counseling [] Bereavement support [] Provided bereavement packet [] Provided Bible/devotional materials [] Provided toy/stuffed animal, coloring book to patient or family member [] Provided Communion [] Anointing/[place] [] Salvation [] Completed spiritual assessment [] Other: Impact on Illness or Injury [] Angry [] Fearful [] Anxious [] Often cries [] Exhaustion [] Unable to work [] Unable to attend shinto [] Unable to walk/stand [] Unable to read [] Unable to drive [] Unable to eat/drink [] Unable to sleep [] Unable to be with family [] Patient intubated [] Other: Summary Time spent with patient x
--- NOTE | 2021-01-16 12:53 | PC.CHAP ---
Pastoral Care Encounter/Spiritual Assessment Type of Contact [] Declined environmental professional visit [] Patient/Family/Request visit [] Outpatient visit [x] Follow-up visit [] Physician referral [] Code/Alert [] Routine visit [] Staff referral [] Actively dying [x] Patient sleeping [] Family support [] [] Out of room [] Palliative care [] [] Receiving care in room [] Pre-surgical visit [] Trauma [] Long length of stay [] ICU visit [] Other: Relational/Emotional Strength [] Patient feels connected with others/family/visitors/staff [] Distress [] Loneliness/isolation [] Abandonment Spirituality of Patient [] Person of Alexsandra [] Attends Faith of their Alexsandra [] Believes in Prayer [] Reads Bible or Scientology materials [] There are Spiritual issues to be addressed Commercial Pest Control Representative Interventions [] Prayer [] Active listening [] Non-anxious presence [] Spiritual/emotional support [] Crisis/trauma care [] Spiritual counseling [] Bereavement support [] Provided bereavement packet [] Provided Bible/devotional materials [] Provided toy/stuffed animal, coloring book to patient or family member [] Provided Communion [] Anointing/[place] [] Salvation [] Completed spiritual assessment [] Other: Impact on Illness or Injury [] Angry [] Fearful [] Anxious [] Often cries [] Exhaustion [] Unable to work [] Unable to attend mormonism [] Unable to walk/stand [] Unable to read [] Unable to drive [] Unable to eat/drink [] Unable to sleep [] Unable to be with family [] Patient intubated [] Other: Summary Time spent with patient
[2021-01-16] MEDS: perflutren protein-a microsphr 0.22 mg/mL SDV 3 mL IV (14:35)
--- NOTE | 2021-01-16 14:58 | PC.RESP ---
SMOKING CESSATION AND PULMONARY REHAB INFORMATION SENT TO PATIENT.
--- NOTE | 2021-01-16 15:12 | ANES.PREANE2 ---
Pre-Anesthetic Assessment Pre-Anesthetic Assessment: Height/Weight: Height 1.78 m Weight 140.614 kg Temp Pulse Resp BP Pulse Ox 98.0 F 105 H 21 H 118/76 92 01/16/21 06:25 01/16/21 12:15 01/16/21 12:15 01/16/21 12:15 01/16/21 12:15 Proposed Procedure: Operation Date: 01/16/21 15:00 Proposed Procedures p Bronchoscopy(Not Applicable) - Aman Harris DatarMD Was Beta Viola taken within 24 hours: Yes Last Intake: 00:00 Social: Packs per day: 2 Exam: Pre-Anes Outpt Exam: alert, oriented x 3, clear to auscultation bilaterally and regular rate & rhythm Airway: Submandibular: WNL Cervical ROM: WNL MP: 2 (khan) Dentition: Chipped Additional comments: 3 teeth History/ROS: No significant history except as noted and No significant complaints Pulmonary: Pulmonary: COPD, Cough, GLEASON, Sleep apnea and SOB Comments: CPAP CV/HEM: CV/HEM: HTN : : None reported Hepatic: Hepatic: None reported GI: GI: GERD Metabolic: Metabolic: DM and Morbid obesity Musc/skel: Musc/skel: None reported Neuropsych: Neuropsych: Anxiety and Depression Anesthetic Plan: ASA status: 4 Anesthesia: Anesthesia Evaluation and General Risk of > 500 ml blood loss (7ml/kg in children): No Meds/Allergies Current Medications: Current Medications Generic Name Dose Route Start Last Admin Trade Name Freq PRN Reason Stop Dose Admin Piperacillin Sod/T azobactam 50 mls @ 12.5 mls /hr 01/16/21 05:52 01/16/21 14:07 Sod 3.375 gm/ So dium Chloride IV 12.5 mls/hr Q8H LANDON Administration Protocol Vancomycin/PEG/NAD A/Lysine/Water 1,250 mg in 250 m ls @ 250 mls/hr 01/16/21 10:00 01/16/21 11:50 Vancocin IV Infused Q8H LANDON Infusion Lactulose 15 gm 01/16/21 09:15 01/16/21 09:28 Lactulose Oral L iq 20 Gm/30 Ml Udc PO 15 gm Q12H LANDON Administration Metoprolol Tartrat e 25 mg 01/16/21 11:10 01/16/21 12:34 Metoprolol Tartr ate 25 Mg Tablet PO 25 mg DAILY LANDON Administration Senna/Docusate Sod ium 1 tab 01/16/21 09:00 01/16/21 09:27 Sennosides-Docus ate Tablet PO 1 tab DAILY LANDON Administration PFSH Anesthesia PFSH: Medical History (Updated 01/16/21 @ 08:54 by Jarett Torres DO) CHF (congestive heart failure) COPD (chronic obstructive pulmonary disease) Diabetes HTN (hypertension) Surgical History (Updated 01/16/21 @ 05:37 by Jose R Guthrie MD) History of appendectomy History of cholecystectomy Family History (Updated 01/16/21 @ 05:37 by Jose R Guthrie MD) Other Diabetes Social History (Updated 01/16/21 @ 05:37 by Jose R Guthrie MD) Smoking and tobacco status: current every day smoker cigarettes Alcohol intake: never Housing: House Data Anesthesia CBC & Chem 7: 01/16/21 00:12 01/16/21 00:12 Other Labs: Laboratory Results - last 48 hr 01/16/21 01/16/21 01/16/21 00:12 00:12 00:12 WBC 32.8 H* RBC 5.45 H Hgb 15.2 Hct 46.9 MCV 86.1 MCH 27.9 L MCHC 32.4 RDW 13.8 Plt Count 407 H MPV 10.6 H Neut % (Auto) 84.8 Lymph % (Auto) 5.9 [place] % (Auto) 7.8 Eos % (Auto) 0.0 Baso % (Auto) 0.3 Neut # (Auto) 27.85 H Lymph # (Auto) 1.9 [place] # (Auto) 2.6 H Eos # (Auto) 0.0 Baso # (Auto) 0.1 Nucleated RBC % (auto) 0 Nucleated RBCs # 0.0 D-Dimer Sodium 130 L Potassium 2.9 L Chloride 85 L Carbon Dioxide 28 Anion Gap 19.9 H BUN 16 Creatinine 0.8 GFR Calculation 98.0 Glucose 145 H Calculated Osmolality 274 L Lactic Acid Calcium 9.6 Magnesium Total Bilirubin 1.4 H AST 16 ALT 9 Alkaline Phosphatase 117 Lactate Dehydrogenase Troponin T Baseline 13 NT-Pro-B Natriuret Pep 873 H Total Protein 7.6 Albumin 3.0 L Globulin 4.6 Procalcitonin SARS-CoV-2 Ag (Rapid) 01/16/21 01/16/21 01/16/21 00:12 00:12 00:12 WBC RBC Hgb Hct MCV MCH MCHC RDW Plt Count MPV Neut % (Auto) Lymph % (Auto) [place] % (Auto) Eos % (Auto) Baso % (Auto) Neut # (Auto) Lymph # (Auto) [place] # (Auto) Eos # (Auto) Baso # (Auto) Nucleated RBC % (auto) Nucleated RBCs # D-Dimer 3.64 H Sodium Potassium Chloride Carbon Dioxide Anion Gap BUN Creatinine GFR Calculation Glucose Calculated Osmolality Lactic Acid Calcium Magnesium 2.1 Total Bilirubin AST ALT Alkaline Phosphatase Lactate Dehydrogenase 148 Troponin T Baseline NT-Pro-B Natriuret Pep Total Protein Albumin Globulin Procalcitonin 1.35 H SARS-CoV-2 Ag (Rapid) 01/16/21 01/16/21 02:18 02:31 WBC RBC Hgb Hct MCV MCH MCHC RDW Plt Count MPV Neut % (Auto) Lymph % (Auto) [place] % (Auto) Eos % (Auto) Baso % (Auto) Neut # (Auto) Lymph # (Auto) [place] # (Auto) Eos # (Auto) Baso # (Auto) Nucleated RBC % (auto) Nucleated RBCs # D-Dimer Sodium Potassium Chloride Carbon Dioxide Anion Gap BUN Creatinine GFR Calculation Glucose Calculated Osmolality Lactic Acid 3.2 H Calcium Magnesium Total Bilirubin AST ALT Alkaline Phosphatase Lactate Dehydrogenase Troponin T Baseline NT-Pro-B Natriuret Pep Total Protein Albumin Globulin Procalcitonin SARS-CoV-2 Ag (Rapid) Negative Micro: Microbiology 01/16/21 02:31 Blood Culture - Preliminary Blood SPECIMEN COLLECTED 01/16/21 02:16 Blood Culture - Preliminary Blood SPECIMEN COLLECTED Cardiac Studies: No Data to Display
[2021-01-16] MEDS: sodium chloride 0.9% 1,000 ML 30 ML IV (15:41)
--- NOTE | 2021-01-16 16:30 | PC.NURSE ---
Patient back from GI lab after planned procedure Nasal pharyngeal in place with wimple mask in place on 10 L patient coughing up clear white sputum Nasal pharyngeal removed and patient was able to blow his nose and stop coughing. V/S stable
--- NOTE | 2021-01-16 16:49 | PM.OP ---
Operative Report Date of procedure: January 16, 2021 Procedure:BRONCHOSCOPY for airway inspection and obtaining BAL Pre-Operative Diagnosis: Pneumonia Post-Operative Diagnosis: Same Indication: RLL pneumonia Anesthesia: As per anesthesia Pre-procedure Evaluation: Patient was evaluated clinically and ancillary testing reviewed. The risk of having active MTB infection is very low in my clinical judgement. ASA: Malampati score: unable to evaluate due to presence of endotracheal tube Consent: Consents were obtained from patient and placed in the chart Procedure Details: Time out was performed by the procedure team and nursing staff. Vent support maintained on Fio2 100. The bronchoscope was introduced through the ETT. A bronchoscopic airway exam was performed to evaluate the visible tracheobronchial tree to the segmental level. Summary of Significant Findings: -Bronchoscope passed through ET tube to visualize distal trachea which was noted to be normal. Main tomi visualized which was sharp and normal. Clear secretions noted. 6 mL of 2% lidocaine instilled in each mainstem. Then the scope was left bronchial tree was assessed to include the left mainstem bronchus, YANIV, Lingula, and LLL bronchi to the segmental and subsegmental level. No active bleeding noted. Mucosa appeared normal. Clear secretions noted which were suctioned right away Then the scope was passed through the right bronchial tree was assessed to include the right mainstem bronchus, RBI, and RUL/RML/RLL bronchi to the segmental and subsegmental levels. No active bleeding noted. Mucosa appeared edematous at the level of right upper lobe opening, right lower lobe subsegmental openings. Lateral segment of right lower lobe opening is completely occluded with significant circumferential edema. Thick mucoid secretions were noted in the right lower lobe and B6 -everything suctioned as much possible. 90 mL normal saline was instilled in the right lower lobe and 60 mL was instilled in lateral segment of right lower lobe and obtain bronchoalveolar lavage which were sent for bacterial cultures, fungal cultures, AFB and cytology. The bronchoscope was then removed and the procedure terminated. Estimated Blood Loss: None Specimens: Bronchoalveolar lavage was taken from various segments of right lower lobe and sent for microbiology cultures, fungal cultures, AFB and cytology Complications:None; patient tolerated the procedure well. Disposition: Patient remains critically ill and will be transferred to ICU for overnight observation Patient tolerated the procedure well. Aman Davis MD Pulmonary critical Care Medicine [facility] Associated Problem List Diagnoses (1) Mass of right lung: (2) CHF exacerbation: (3) CAP (community acquired pneumonia): Qualifiers: Laterality: right Lung location: lower lobe of lung Qualified Code(s): J18.9 - Pneumonia, unspecified organism (4) Sepsis:
--- NOTE | 2021-01-16 17:47 | ANE.PACU2 ---
Inpatient post-anesthesia follow up: Airway intact: Yes Vital signs: Temperature 96.5 F Pulse Rate [Right Radial] 112 Pulse Rate 94 Respiratory Rate 27 Blood Pressure [Le ft Arm] 110/69 Blood Pressure 137/94 Pulse Oximetry 96 Oxygen Delivery Me thod Room Air Oxygen Flow Rate Fraction of Inspir ed Oxygen Hydration adequate: Yes Nausea and vomiting: No Pain level: 2 Mental status: Baseline
--- NOTE | 2021-01-16 17:50 | PC.NURSE ---
Dr. Davis Notified of all meds on hold transfer orders placed and instructions to obtain chest xray in the am and start patient with IS and flutter valve
[2021-01-16] MEDS: BuSPIRONE 10 mg Tablet PO (20:30)
--- NOTE | 2021-01-16 22:43 | P.CONIM_ITS ---
Providers/Reason For Consult Consulting Physician/Specialty*: Aman Davis MD/ Pulmonary Critical Care Reason for Consult*: RLL Pneumonia Attending Physician: Shauna Toussaint MD Primary Care Provider: Michael Washington History of Present Illness History of Present Illness History of presenting illness: Leon Rossi is a 60 year old male who has history of diabetes, hypertension, oxygen dependent COPD, CHF, active smoker, presented 01/15/21 with chief complaint of worsening shortness of breath for last 3 days with worsening of productive cough, lethargy, fatigue. He went to his PCP who increased his Lasix from 40 mg to 80 mg and incremented potassium supplementation. His symptoms did not improve along with orthopnea, PND, shortness of breath on exertion without a ny chest pain, subjective fevers. Denied nausea, vomiting or diarrhea. His last bowel movement was about 4 to 5 days ago. He is endorsing night sweats, 15 to 20 pound weight loss which is unintentional, he is smoking about 2 packs/day. Diagnostics in the ER revealed sepsis secondary to pneumonia, CTA rule out PE, diagnostics leukocytosis, thrombocytosis, hypokalemia, received Levaquin in the ER, D-dimer 3000, sent for urine antigens and procalcitonin, lactic acid 3.2 Pulmonary consult requested RLL consolidation and loculated pleural effusion Patient seen at bedside today morning Saturating 97% on room air Does not appear in respiratory distress Reported having episodes of vomitings few days ago and endorses possible aspiration CT evidence of loculated pleural collection seen on the right side containing some material gas densities findings worrisome for empyema. Patchy opacities and consolidation and masslike infiltrate seen in the RLL superimposed over loculated pleural fluid collections with underlying bronchogenic mass cannot be excluded as well Perform bronchoscopy today afternoon and BAL taken from RLL sent for bacterial, fungal, AFB cultures and cytology Labs and imaging reviewed and pertinent findings incorporated in assessment and plan Review of Systems General: Reports: 10 or more systems reviewed and unremarkable except in HPI and below Meds/Allergies Home Medications and Allergies Home Medications Medication Instructions Recorded Confirmed Last Taken Type albuterol sulfate [Ventolin HFA] 2 puff INHALATION Q6H PRN 01/16/21 01/16/21 01/15/21 History amitriptyline 100 mg PO DAILY 01/16/21 01/16/21 01/14/21 History buspirone 10 mg PO TID 01/16/21 01/16/21 01/15/21 History furosemide 40 mg PO DAILY 01/16/21 01/16/21 01/15/21 History metoprolol tartrate 25 mg PO DAILY 01/16/21 01/16/21 01/15/21 History potassium chloride 20 meq PO DAILY 01/16/21 01/16/21 01/15/21 History tiotropium bromide [Spiriva with 1 cap INHALATION DAILY 01/16/21 01/16/21 01/15/21 History HandiHaler] Allergies Allergy/AdvReac Type Severity Reaction Status Date / Time Antibiotic Allergy Intermediate ADR-Numbnes Uncoded 01/16/21 01:25 s Current Medications Current Medications Generic Name Dose Route Start Last Admin Trade Name Iliaq PRN Reason Stop Dose Admin Buspirone HCl 10 mg 01/16/21 15:00 01/16/21 20:30 Buspirone 10 Mg Tablet PO 10 mg TID LANDON Administration Piperacillin Sod/Tazobactam 50 mls @ 12.5 mls/hr 01/16/21 05:52 01/16/21 20:3 0 Sod 3.375 gm/ Sodium Chloride IV 12.5 mls/hr Q8H LANDON Administration Protocol Vancomycin/PEG/NADA/Lysine/Water 1,250 mg in 250 mls @ 250 mls/hr 01/16/21 10:00 01/16/21 11:50 Vancocin IV Infused Q8H LANDON Infusion Sodium Chloride 1,000 mls @ 30 mls/hr 01/16/21 15:00 01/16/21 15:41 Sodium Chloride 0.9% IV 01/17/21 14:59 30 mls/hr .Q24H LANDON Administration Lactulose 15 gm 01/16/21 09:15 01/16/21 20:27 Lactulose Oral Liq 20 Gm/30 Ml Udc PO 15 gm Q12H LANDON Administration Metoprolol Tartrate 25 mg 01/16/21 11:10 01/16/21 12:34 Metoprolol Tartrate 25 Mg Tablet PO 25 mg DAILY LANDON Administration Senna/Docusate Sodium 1 tab 01/16/21 09:00 01/16/21 09:27 Sennosides-Docusate Tablet PO 1 tab DAILY LANDON Administration PFSH Acute PFSH: Medical History (Updated 01/16/21 @ 23:08 by Aman Davis MD) CHF (congestive heart failure) COPD (chronic obstructive pulmonary disease) Diabetes HTN (hypertension) Surgical History History of appendectomy History of cholecystectomy Family History Other Diabetes Social History Smoking and tobacco status: current every day smoker cigarettes Alcohol intake: never Housing: House Vitals/I&O/Wt Last Vital Signs Temp 96.5 F L 01/16/21 15:13 Pulse 83 01/16/21 18:55 Resp 27 H 01/16/21 17:15 BP 137/94 01/16/21 17:15 Pulse Ox 96 01/16/21 17:15 01/16/21 01/16/21 01/16/21 06:59 14:59 22:59 Intake Total 105 / 105 1300 / 1300 50 / 1350 Output Total 225 / 225 250 / 475 Balance 105 / 105 1075 / 1075 -200 / 875 Weight last 48 hrs Weight 310 lb Physical Exam Narrative: EXAM NARRATIVE: General: alert, NAD HEENT: conj clear, EOMI, PERRL, mmm, Neck: supple, no meningismus Heme: no cervical LAP Pulmonary: Reduced breath sounds on right lower lobe Cardiovascular: rrr, nl s1s2, no mrg Abdomen: soft, nt, nd, no r/g, bs+ Extremities: pulses +, 1+ pitting pedal edema, no c/c : no CVA tenderness Skin: intact, no rash MSK: no back or neck pain Neurologic: grossly intact Data Labs: Other Labs: Laboratory Results WBC 32.8 10^3/uL (4.0 -10.0) H* 01/16/21 00:12 RBC 5.45 10^6/uL (4.1 -5.3) H 01/16/21 00:12 Hgb 15.2 g/dL (11.7-1 6.6) 01/16/21 00:12 Hct 46.9 % (42.0-52.0 ) 01/16/21 00:12 MCV 86.1 fL (80-94) 01/16/21 00:12 MCH 27.9 pg (28.0-34. 0) L 01/16/21 00:12 MCHC 32.4 g/dL (30.0-3 6.0) 01/16/21 00:12 RDW 13.8 % (12.1-15.1 ) 01/16/21 00:12 Plt Count 407 10^3/cmm (130 -400) H 01/16/21 00:12 MPV 10.6 fL (7.4-10.4 ) H 01/16/21 00:12 Neut % (Auto) 84.8 % 01/16/21 00:12 Lymph % (Auto) 5.9 % 01/16/21 00:12 Prentiss % (Auto) 7.8 % 01/16/21 00:12 Eos % (Auto) 0.0 % 01/16/21 00:12 Baso % (Auto) 0.3 % 01/16/21 00:12 Neut # (Auto) 27.85 10^3/uL (1. 8-7.7) H 01/16/21 00:12 Lymph # (Auto) 1.9 10^3/uL (0.8- 4.8) 01/16/21 00:12 Prentiss # (Auto) 2.6 10^3/uL (0.2- 0.9) H 01/16/21 00:12 Eos # (Auto) 0.0 10^3/uL (0.0- 0.8) 01/16/21 00:12 Baso # (Auto) 0.1 10^3/uL (0.0- 0.1) 01/16/21 00:12 Nucleated RBC % (a uto) 0 % 01/16/21 00:12 Nucleated RBCs # 0.0 /100WBC 01/16/21 00:12 D-Dimer 3.64 ug/mIFEU (0- 0.59) H 01/16/21 00:12 Sodium 130 mmol/L (136-1 45) L 01/16/21 00:12 Potassium 2.9 mmol/L (3.5-5 .1) L 01/16/21 00:12 Chloride 85 mmol/L (98-107 ) L 01/16/21 00:12 Carbon Dioxide 28 mmol/L (22-29) 01/16/21 00:12 Anion Gap 19.9 (5-19) H 01/16/21 00:12 BUN 16 mg/dL (8-23) 01/16/21 00:12 Creatinine 0.8 mg/dL (0.7-1. 2) 01/16/21 00:12 GFR Calculation 98.0 mL/min (90-1 30) 01/16/21 00:12 Glucose 145 mg/dL (65-115 ) H 01/16/21 00:12 Calculated Osmolal ity 274 mOsm/kg (285- 295) L 01/16/21 00:12 Lactic Acid 3.2 mmol/L (0.5-2 .2) H 01/16/21 02:18 Calcium 9.6 mg/dL (8.5-10 .5) 01/16/21 00:12 Magnesium 2.1 mg/dL (1.7-2. 3) 01/16/21 00:12 Total Bilirubin 1.4 mg/dL (0.15-1 .2) H 01/16/21 00:12 AST 16 U/L (0-40) 01/16/21 00:12 ALT 9 U/L (0-41) 01/16/21 00:12 Alkaline Phosphata se 117 IU/L (40-130) 01/16/21 00:12 Lactate Dehydrogen ase 148 U/L (135-225) 01/16/21 00:12 Troponin T Baselin e 13 ng/L (0-15) 01/16/21 00:12 NT-Pro-B Natriuret Pep 873 pg/mL (0-125) H 01/16/21 00:12 Total Protein 7.6 g/dL (6.6-8.7 ) 01/16/21 00:12 Albumin 3.0 g/dL (3.5-5.2 ) L 01/16/21 00:12 Globulin 4.6 g/dL (1.3-4.6 ) 01/16/21 00:12 Procalcitonin 1.35 ng/mL (0-0.5 ) H 01/16/21 00:12 SARS-CoV-2 Ag (Rap id) Negative (Negati ve) 01/16/21 02:31 Impressions Chest X-Ray 01/16/21 02:08 IMPRESSION: 1. There is a right pleural effusion that obscures the right hemidiaphragm. 2. Hazy in strandy opacities are seen superimposed over the pleural effusion compatible with a right basilar atelectasis versus pneumonia. Chest CTA 01/16/21 03:01 IMPRESSION: 1. There is no evidence for pulmonary emboli. 2. There is a loculated pleural fluid collection seen on the right containing some mottled gas densities, findings worrisome for empyema. 3. Patchy opacities, consolidation and masslike infiltrates are seen in the right lower lobe superimposed over the loculated pleural fluid collection. Aspiration pneumonia with anaerobic organisms could have this appearance. Underlying bronchogenic mass cannot be excluded as well. Radiation Dose CTDIVOL = (mGy): DLP = 1226.2 (mGy-cm) Micro: Micro: Microbiology 01/16/21 02:31 Blood Culture - Pr eliminary Blood SPECIMEN [facility] 01/16/21 02:16 Blood Culture - Pr eliminary Blood [facility] A&P Assessment and plan (1) Sepsis: Status: Acute Qualifiers: Sepsis type: sepsis due to unspecified organism Sepsis acute organ dysfunction status: unspecified Qualified Code(s): A41.9 - Sepsis, unspecified organism (2) Mass of right lung: Status: Acute (3) CHF exacerbation: Status: Acute Qualifiers: Heart failure type: unspecified Qualified Code(s): I50.9 - Heart failure, unspecified (4) CAP (community acquired pneumonia): Status: Acute Qualifiers: Laterality: right Lung location: lower lobe of lung Qualified Code(s): J18.9 - Pneumonia, unspecified organism (5) Loculated pleural effusion: Status: Acute (6) COPD (chronic obstructive pulmonary disease): Status: Acute Qualifiers: COPD type: unspecified COPD Qualified Code(s): J44.9 - Chronic obstructive pulmonary disease, unspecified (7) Smoker: Status: Acute (8) Hypokalemia: Status: Acute #Sepsis secondary to RLL pneumonia #Loculated Rt pleural effusion with moderate gas densities on CT suspicious for empyema #Superior segment of RLL showing masslike infiltrate 3.9 x 4.9 x 4.5 cm #Chronic smoker 2 pack/day for several years #H/O underlying COPD-need PFTs as outpatient [facility] 2 no reported exacerbations prior to this hospitalization - not in exacerbation #History of CHF on Lasix 80 twice daily #Hypokalemia-likely due to recent increase in Lasix dose # Anion gap metabolic acidosis likely due to lactic acidosis due to sepsis -Afebrile since admission, leukocytosis, high procalcitonin 1.35; - Saturating well on room air -Endorses history of vomiting and possible aspiration -Currently empirically on vancomycin, Levaquin and Zosyn day 2 -Blood cultures pending, ordered urine bacterial antigens, Legionella antigen, MRSA nares -S/p bronchoscopy today afternoon-showed edematous mucosa in right upper lobe and lower lobe and near complete occlusion of superior segment of right lower lobe, copious mucus secretions aspirated and BAL sent for cytology, bacterial cultures, AFB and fungal cultures -Bedside ultrasound today showed right pleural effusion-with not a safe pocket to tap (lung moving too close to diaphragm on inspiration) - BNP 800, Awating Echo, Continue lasix 40 mg daiily and monitor electroytes and Input and out put. - COPD Not in exacerbation - duoneb q6r hr prn wheezing or shortness of breath - CT imaging cannot rule out underlying malignancy in RLL given history of significant smoking; once infection is treated and optimizing CHF; and if cytology sent from today's BAL is negative - I will repeat CT in 4-6 weeks to look for resolution of infection and if there is a mass - will schedule for biopsy - Counselled to quit smoking and he agreed to quit - Counselled to stay uptodate with flu and pneumonia vaccination in future - Need PFTS/6MWT as out patient - Patient needs LAMA/LABA/ICS (Trelegy 1 puff daily or Breztri 2 puffs bid) upon discharge Medical condition, labs and investigations and plan of management explained in detail to the patient. recommendations conveyed to hospitalist and RN covering the patient Consult Attestations Medical Necessity Statement: Right lower lobe pneumonia with loculated pleural effusion with possible underlying mass in chronic smoker with COPD and CHF - Needs close clinical monitoring for impending respiratory failure Time Spent in Patient Care: (>than 50% of time spent in counselling and/or direct pt care on unit) . The high probability of a clinically significant, sudden or life threatening deterioration of the patient's [respiratory, cardiac, infectious] system(s) required my full and direct attention, intervention and personal management. The critical care time is as shown. This time is in addition to time spent performing any reported procedures but includes the following: [x] Data and vital sign review and interpretation [x] Patient assessment, examination and intervention [x] Documentation [x] Medication orders and management Critical Care Time: Critical Care Time (min): 60 Other Attestations: Other Attestations: including bedside ultrasound examination of right pleural effusion Coding Level of Care Code New Pt Acute Field Account Director for g Fwd Patient Type New History Comprehensive Exam Comprehensive Medical Decision Making High Complexity Diagnoses Sepsis A41.9 Sepsis type: sepsis due to unspecified organism Sepsis acute organ dysfunction status: unspecified Mass of right lung R91.8 CHF exacerbation I50.9 Heart failure type: unspecified CAP (community acquired pneumonia) J18.9 Laterality: right Lung location: lower lobe of lung Loculated pleural effusion J90 COPD (chronic obstructive pulmonary disease) J44.9 COPD type: unspecified COPD Smoker F17.200 Hypokalemia E87.6 Time Spent (min) 60 Comment including bedside ultrasound examination of right pleural effusion
[2021-01-17] VITALS (21 sets, daily range): BP systolic 101–158; BP diastolic 57–101; PULSE 82–116; RESP 16–27; TEMP 36.3–36.8; O2SAT 88–100
--- NOTE | 2021-01-17 01:37 | PC.NURSE ---
ASSUMING CARE 1900 Patient sitting up in chair with family in room. Alert and oriented x 4. Denies pain or needs at this time.
[2021-01-17] MEDS: vancomycin 1,250 MG/250 ML PIGGYBACK 250 MG IV ×2 (02:54→09:55)
--- NOTE | 2021-01-17 04:00 | XRR_ITS ---
PROCEDURE INFORMATION: Exam: XR Chest Exam date and time: 01/17/2021 4:00 AM Age: 60 years old Clinical indication: Condition or disease; Lung condition and disease; Pleural effusion; Additional info: Follow up TECHNIQUE: Imaging protocol: XR of the chest. Views: 1 view. COMPARISON: CR (CHEST, ) 01/16/2021 2:35 AM FINDINGS: Moderate size right pleural effusion is seen with ipsilateral shift of the mediastinum suggesting underlying loss of volume. The left lung is unremarkable. XR/XR chest 1V portable [id number] IMPRESSION: Moderate right pleural effusion with underlying atelectasis.
[2021-01-17 04:01] LABS: Basophils # 0.1 10^3/uL (0.0-0.1); Basophils % 0.2 %; Hematocrit 39.7 % (42.0-52.0); Hemoglobin 12.9 g/dL (11.7-16.6); Lymphocytes # 1.2 10^3/uL (0.8-4.8); Lymphocytes % 3.9 %; Mean Corpuscular HGB Conc 32.5 g/dL (30.0-36.0); Mean Corpuscular Hemoglobin 27.7 pg (28.0-34.0); Mean Corpuscular Volume 85.2 fL (80-94); Mean Platelet Volume 9.9 fL (7.4-10.4); Monocytes # 1.6 10^3/uL (0.2-0.9); Monocytes % 5.3 %; Neutrophils # 27.21 10^3/uL (1.8-7.7); Neutrophils % 89.5 %; Nucleated Red Blood Cells % 0 %; Platelet Count 372 10^3/cmm (130-400); Red Blood Count 4.66 10^6/uL (4.1-5.3); Red Cell Distribution Width 13.7 % (12.1-15.1)
[2021-01-17 04:20] LABS: Alanine Aminotransferase 9 U/L (0-41); Albumin Level 2.3 g/dL (3.5-5.2); Alkaline Phosphatase 116 IU/L (40-130); Anion Gap 12.5 (5-19); Aspartate Amino Transferase 16 U/L (0-40); Blood Urea Nitrogen 16 mg/dL (8-23); Calcium 9.5 mg/dL (8.5-10.5); Carbon Dioxide 28 mmol/L (22-29); Chloride 94 mmol/L (98-107); Globulin 4.3 g/dL (1.3-4.6); Glomerular Filtration Rate 136.5 mL/min (90-130); Glucose 118 mg/dL (65-115); Magnesium 2.1 mg/dL (1.7-2.3); Osmolality Calculated 274 mOsm/kg (285-295); Potassium 3.5 mmol/L (3.5-5.1); Sodium 131 mmol/L (136-145); Total Protein 6.6 g/dL (6.6-8.7)
[2021-01-17 04:41] LABS: White Blood Count 30.4 10^3/uL (4.0-10.0)
[2021-01-17] MEDS: piperacillin-tazobactam 3.375 GM in sodium chloride 0.9% (plus) 50 ML IV ×3 (05:51→21:57)
[2021-01-17] MEDS: levoFLOXacin 750 mg Tablet PO (05:51)
--- NOTE | 2021-01-17 06:17 | PC.NURSE ---
Addendum entered by Jillian Boyd RN 01/17/21 06:25: Notified physician of absent breath sounds on the right at this time also. Patient frequently coughing up yellow sputum. Original Note: CHEST XRAY Dr. Guthrie notified of chest xray appearance this AM. Patients oxygen decreased to 82%, increased from 2 to 3L nasal cannula and increased back to 90s. Nurse reported to patients room to assist him to bedside commode, patient tells nurse that he is just having a hard time breathing and is breathing about 25 times a minute. Oxygen increased to 5L and patient states that helped him. No new orders at this time.
--- NOTE | 2021-01-17 06:28 | PC.NURSE ---
SHIFT SUMMARY Patient now on 5L nasal cannula. Patient sitting up in chair. [address] Davis on unit at this time assessing patient. No bowel movement still, but patient did pass gas.
[2021-01-17] MEDS: sennosides-docusate Tablet 1 TAB PO (08:16)
[2021-01-17] MEDS: lactulose oral liq 20 gm/30 mL UDC 15 GM PO (08:16)
[2021-01-17] MEDS: FUROsemide 40 mg Tablet PO ×2 (08:17→15:16)
[2021-01-17] MEDS: metoprolol tartrate 25 mg Tablet PO (08:17)
[2021-01-17] MEDS: BuSPIRONE 10 mg Tablet PO ×3 (08:17→21:01)
[2021-01-17] MEDS: amitriptyline 25 mg Tablet 100 MG PO (08:17)
--- NOTE | 2021-01-17 09:32 | PC.CHAP ---
Pastoral Care Encounter/Spiritual Assessment Type of Contact [] Declined crna visit [] Patient/Family/Request visit [] Outpatient visit [] Follow-up visit [] Physician referral [] Code/Alert [x] Routine visit [] Staff referral [] Actively dying [] Patient sleeping [] Family support [] [] Out of room [] Palliative care [] [x] Receiving care in room [] Pre-surgical visit [] Trauma [] Long length of stay [x] ICU visit [x] Other: setting up in chair Relational/Emotional Strength [] Patient feels connected with others/family/visitors/staff [] Distress [] Loneliness/isolation [] Abandonment Spirituality of Patient [] Person of Alexsandra [] Attends Yarsanism of their Alexsandra [] Believes in Prayer [] Reads Bible or Religion materials [] There are Spiritual issues to be addressed Casing Mixer Interventions [x] Prayer [] Active listening [] Non-anxious presence [] Spiritual/emotional support [] Crisis/trauma care [] Spiritual counseling [] Bereavement support [] Provided bereavement packet [] Provided Bible/devotional materials [] Provided toy/stuffed animal, coloring book to patient or family member [] Provided Communion [] Anointing/Arvin [] Salvation [x] Completed spiritual assessment [] Other: Impact on Illness or Injury [] Angry [] Fearful [] Anxious [] Often cries [] Exhaustion [] Unable to work [] Unable to attend protestant [] Unable to walk/stand [] Unable to read [] Unable to drive [] Unable to eat/drink [] Unable to sleep [] Unable to be with family [] Patient intubated [] Other: Summary Time spent with patient
--- NOTE | 2021-01-17 12:17 | PM.PN ---
Subjective Subjective: Interval history: planned for thoracentesis this afternoon, leukocytosis persisting at 30 , bronchoscopy findings noted Medications: Reviewed: Yes Vitals/I&O/Wt Last Vital Signs Temp 98.1 F 01/17/21 08:00 Pulse 82 01/17/21 10:00 Resp 19 H 01/17/21 10:00 BP 101/80 01/17/21 10:00 Pulse Ox 96 01/17/21 10:00 01/16/21 01/17/21 01/17/21 22:59 06:59 14:59 Intake Total 50 / 1350 300 / 1650 300 / 300 Output Total 550 / 775 450 / 1225 200 / 200 Balance -500 / 575 -150 / 425 100 / 100 Weight last 48 hrs Weight 140.614 kg Physical Exam Narrative: EXAM NARRATIVE: GEN: Awake, alert and oriented, no acute distress CVS: S1S2 N RS: Reducd breath sounds RLL Abd: Soft, nt/nd , bs+ ACOUSTICAL ENGINEER: no focal neuro deficits Ext: 1+ pitting edema B/L LE Data : 01/17/21 03:23 01/17/21 03:23 Micro: Microbiology 01/17/21 05:30 Legionella Urinary Antigen - Final Urine,Voided Bacterial Antigens - Final 01/16/21 17:00 Gram Stain - Final Lung Right Lower Lobe 01/16/21 02:31 Blood Culture - Preliminary Blood NEGATIVE TO DATE 01/16/21 02:16 Blood Culture - Preliminary Blood NEGATIVE TO DATE A&P Assessment and plan (1) Sepsis: Status: Acute Qualifiers: Sepsis type: sepsis due to unspecified organism Sepsis acute organ dysfunction status: unspecified Qualified Code(s): A41.9 - Sepsis, unspecified organism (2) Hypokalemia: Status: Acute (3) CHF exacerbation: Status: Acute Qualifiers: Heart failure type: unspecified Qualified Code(s): I50.9 - Heart failure, unspecified (4) CAP (community acquired pneumonia): Status: Acute Qualifiers: Laterality: right Lung location: lower lobe of lung Qualified Code(s): J18.9 - Pneumonia, unspecified organism (5) Mass of right lung: Status: Acute Additional A&P Information Sepsis Likely secondary to pneumonia +/- empyema, currently under evalaution, cannot exclude post obstructive pneumonia from mass at this time. Criteria met with tachypnea, tachycardia, lactic acid, leukocytosis, CTA ruled out PE ; loculated pleural effusion noted, no good window to drain safely Appreciate pulmonary assessment planned for bronchoscopy this afternoon Superior segment of right lower lobe showing masslike infiltrate 3.9 x 4.9 x 4.5 cm continue zosyn, vancomycin and levaquin empirically cytology and cx from bronch and BAL aspirate Requested urine antigen, blood culture, pending Hypokalemia: This seems secondary to recent increase in Lasix dosage Potassium replted Intermittent A fib: not new per history, has been evaluated by fiberglass dowel drawing operator in [place], was told he has a leaky valve but has not been recommended surgical correction or anticoagulation. Echo requested resume metoprolol No active chest pain no signs of ACS N.p.o. Full code DVT prophylaxis: SCD for now until bronchoscopy Attestations Medical Necessity Statement*: planned thoracentesis today, awaiting bronchoscopy results Coding Level of Care Code Acute Tire Retreader for [facility] Fwd Diagnoses Sepsis A41.9 Sepsis type: sepsis due to unspecified organism Sepsis acute organ dysfunction status: unspecified Hypokalemia E87.6 CHF exacerbation I50.9 Heart failure type: unspecified CAP (community acquired pneumonia) J18.9 Laterality: right Lung location: lower lobe of lung Mass of right lung R91.8
--- NOTE | 2021-01-17 15:17 | PM.PN ---
Subjective Subjective: Interval history: -Patient seen at bedside today morning sitting in chair, saturating 92% on 5 L nasal cannula -Appeared not in respiratory distress and reported he is comfortable -He complained of some soreness in his right lung and has been using incentive spirometry and flutter valve to cough out secretions -As per night nurse today morning 5 AM patient to sleep on his right lateral position and desaturated to 82% in the ER to increase O2 from 2 L to 5 L - Bedside ultrasound showed loculated right pleural effusion and right posterior lateral location beneath the scapula -14 Zimbabwean pigtail placed posteriorly and connected to continuous suction-400 cc turbid straw-colored pleural fluid drained -Pleural fluid sample sent for microbiology cultures, fungal cultures, AFB and cell count and pleural fluid analysis -We will instill TPA 10 mg today evening -Labs and imaging reviewed and pertinent findings incorporated in the assessment and plan Medications: Reviewed: Yes Vitals/I&O/Wt Last Vital Signs Temp 98.1 F 01/17/21 08:00 Pulse 86 01/17/21 14:00 Resp 24 H 01/17/21 14:00 BP 156/97 01/17/21 14:00 Pulse Ox 90 01/17/21 14:00 01/17/21 01/17/21 01/17/21 06:59 14:59 22:59 Intake Total 300 / 1650 300 / 300 Output Total 450 / 1225 725 / 725 Balance -150 / 425 -425 / -425 Weight last 48 hrs Weight 310 lb Physical Exam Narrative: EXAM NARRATIVE: General: alert, NAD HEENT: conj clear, EOMI, PERRL, mmm, Neck: supple, no meningismus Heme: no cervical LAP Pulmonary: Reduced breath sounds on right lower lobe, 14 Zimbabwean chest tube placed on right posterior lateral chest wall and dressing applied Cardiovascular: rrr, nl s1s2, no mrg Abdomen: soft, nt, nd, no r/g, bs+ Extremities: pulses +, 1+ pitting pedal edema, no c/c : no CVA tenderness Skin: intact, no rash MSK: no back or neck pain Neurologic: grossly intact Data : 01/17/21 03:23 01/17/21 03:23 Other Labs: Laboratory Results WBC 30.4 10^3/uL (4.0-10.0) H* 01/17/21 03:23 RBC 4.66 10^6/uL (4.1-5.3) 01/17/21 03:23 Hgb 12.9 g/dL (11.7-16.6) 01/17/21 03:23 Hct 39.7 % (42.0-52.0) L 01/17/21 03:23 MCV 85.2 fL (80-94) 01/17/21 03:23 MCH 27.7 pg (28.0-34.0) L 01/17/21 03:23 MCHC 32.5 g/dL (30.0-36.0) 01/17/21 03:23 RDW 13.7 % (12.1-15.1) 01/17/21 03:23 Plt Count 372 10^3/cmm (130-400) 01/17/21 03:23 MPV 9.9 fL (7.4-10.4) 01/17/21 03:23 Neut % (Auto) 89.5 % 01/17/21 03:23 Lymph % (Auto) 3.9 % 01/17/21 03:23 Kleberg % (Auto) 5.3 % 01/17/21 03:23 Eos % (Auto) 0.0 % 01/17/21 03:23 Baso % (Auto) 0.2 % 01/17/21 03:23 Neut # (Auto) 27.21 10^3/uL (1.8-7.7) H 01/17/21 03:23 Lymph # (Auto) 1.2 10^3/uL (0.8-4.8) 01/17/21 03:23 Kleberg # (Auto) 1.6 10^3/uL (0.2-0.9) H 01/17/21 03:23 Eos # (Auto) 0.0 10^3/uL (0.0-0.8) 01/17/21 03:23 Baso # (Auto) 0.1 10^3/uL (0.0-0.1) 01/17/21 03:23 Nucleated RBC % (auto) 0 % 01/17/21 03:23 Nucleated RBCs # 0.0 /100WBC 01/17/21 03:23 D-Dimer 3.64 ug/mIFEU (0-0.59) H 01/16/21 00:12 Sodium 131 mmol/L (136-145) L 01/17/21 03:23 Potassium 3.5 mmol/L (3.5-5.1) 01/17/21 03:23 Chloride 94 mmol/L (98-107) L 01/17/21 03:23 Carbon Dioxide 28 mmol/L (22-29) 01/17/21 03:23 Anion Gap 12.5 (5-19) 01/17/21 03:23 BUN 16 mg/dL (8-23) 01/17/21 03:23 Creatinine 0.6 mg/dL (0.7-1.2) L 01/17/21 03:23 GFR Calculation 136.5 mL/min (90-130) H 01/17/21 03:23 Glucose 118 mg/dL (65-115) H 01/17/21 03:23 Calculated Osmolality 274 mOsm/kg (285-295) L 01/17/21 03:23 Lactic Acid 3.2 mmol/L (0.5-2.2) H 01/16/21 02:18 Calcium 9.5 mg/dL (8.5-10.5) 01/17/21 03:23 Magnesium 2.1 mg/dL (1.7-2.3) 01/17/21 03:23 Total Bilirubin 1.0 mg/dL (0.15-1.2) 01/17/21 03:23 AST 16 U/L (0-40) 01/17/21 03:23 ALT 9 U/L (0-41) 01/17/21 03:23 Alkaline Phosphatase 116 IU/L (40-130) 01/17/21 03:23 Lactate Dehydrogenase 148 U/L (135-225) 01/16/21 00:12 Troponin T Baseline 13 ng/L (0-15) 01/16/21 00:12 NT-Pro-B Natriuret Pep 873 pg/mL (0-125) H 01/16/21 00:12 Total Protein 6.6 g/dL (6.6-8.7) 01/17/21 03:23 Albumin 2.3 g/dL (3.5-5.2) L 01/17/21 03:23 Globulin 4.3 g/dL (1.3-4.6) 01/17/21 03:23 Procalcitonin 1.35 ng/mL (0-0.5) H 01/16/21 00:12 Vancomycin Trough Cancelled 01/17/21 10:05 SARS-CoV-2 Ag (Rapid) Negative (Negative) 01/16/21 02:31 Impressions Chest CTA 01/16/21 03:01 IMPRESSION: 1. There is no evidence for pulmonary emboli. 2. There is a loculated pleural fluid collection seen on the right containing some mottled gas densities, findings worrisome for empyema. 3. Patchy opacities, consolidation and masslike infiltrates are seen in the right lower lobe superimposed over the loculated pleural fluid collection. Aspiration pneumonia with anaerobic organisms could have this appearance. Underlying bronchogenic mass cannot be excluded as well. Radiation Dose CTDIVOL = (mGy): DLP = 1226.2 (mGy-cm) Chest X-Ray 01/17/21 04:00 IMPRESSION: Moderate right pleural effusion with underlying atelectasis. Micro: Microbiology 01/17/21 05:30 Legionella Urinary Antigen - Final Urine,Voided Bacterial Antigens - Final 01/16/21 17:00 Gram Stain - Final Lung Right Lower Lobe 01/16/21 02:31 Blood Culture - Preliminary Blood NEGATIVE TO DATE 01/16/21 02:16 Blood Culture - Preliminary Blood NEGATIVE TO DATE A&P Assessment and plan (1) Sepsis: Status: Acute Qualifiers: Sepsis acute organ dysfunction status: unspecified Sepsis type: sepsis due to unspecified organism Qualified Code(s): A41.9 - Sepsis, unspecified organism (2) Mass of right lung: Status: Acute (3) CHF exacerbation: Status: Acute Qualifiers: Heart failure type: unspecified Qualified Code(s): I50.9 - Heart failure, unspecified (4) CAP (community acquired pneumonia): Status: Acute Qualifiers: Laterality: right Lung location: lower lobe of lung Qualified Code(s): J18.9 - Pneumonia, unspecified organism (5) Loculated pleural effusion: Status: Acute (6) COPD (chronic obstructive pulmonary disease): Status: Acute Qualifiers: COPD type: unspecified COPD Qualified Code(s): J44.9 - Chronic obstructive pulmonary disease, unspecified (7) Smoker: Status: Acute (8) Hypokalemia: Status: Acute #Sepsis secondary to RLL pneumonia and possible post obstructive pneumonia #Loculated Rt pleural effusion with moderate gas densities on CT suspicious for empyema #Superior segment of RLL showing mass like infiltrate 3.9 x 4.9 x 4.5 cm #Chronic smoker 2 pack/day for several years #H/O underlying COPD - [facility] 2 no reported exacerbations prior to this hospitalization - not in exacerbation; -need PFTs as outpatient #History of CHF on Lasix 40 mg twice daily #Hypokalemia-likely due to recent increase in Lasix dose # Anion gap metabolic acidosis likely due to lactic acidosis due to sepsis -Afebrile since admission, persistent leukocytosis, high procalcitonin 1.35; - Saturating 92% on 5 L nasal cannula -Endorses history of vomiting and possible aspiration -Currently empirically on vancomycin, Levaquin and Zosyn day 3 -Blood cultures pending, urine bacterial antigens, Legionella antigen e gnative, MRSA nares -S/p bronchoscopy today afternoon-showed edematous mucosa in right upper lobe and lower lobe and near complete occlusion of superior segment of right lower lobe, copious mucus secretions aspirated and BAL sent for cytology, bacterial cultures, AFB and fungal cultures -results pending -Bedside ultrasound today showed loculated pleural effusion and posterior lateral chest wall--14 Zimbabwean pigtail placed on 01/17/2021 posteriorly and connected to continuous suction-400 cc turbid straw-colored pleural fluid drained; small air leak noted that improved after some time -Pleural fluid sample sent for microbiology cultures, fungal cultures, AFB and cell count and pleural fluid analysis - Neutrophilic predominant exudative pleural effusion -We will instill TPA 10 mg today evening - BNP 800, Awating Echo, increase Lasix to 40 mg twice daily and monitor electroytes and Input and out put. - COPD Not in exacerbation - duoneb q6r hr prn wheezing or shortness of breath - CT imaging cannot rule out underlying malignancy in RLL given history of significant smoking; once infection is treated and optimizing CHF; and if cytology sent from today's BAL is negative -he will need endobronchial biopsy (patient has reservations about obtaining biopsies) - Counselled to quit smoking and he agreed to quit - Counselled to stay uptodate with flu and pneumonia vaccination in future - Need PFTS/6MWT as out patient - Patient needs LAMA/LABA/ICS (Trelegy 1 puff daily or Breztri 2 puffs bid) upon discharge Medical condition, labs and investigations and plan of management explained in detail to the patient. recommendations conveyed to hospitalist and RN covering the patient Attestations Medical Necessity Statement*: Acute hypoxic respiratory failure secondary to sepsis due to empyema and loculated right pleural effusion with atelectasis and mediastinal shift to the right, possible endobronchial lesions in patient with underlying COPD and CHF needs close monitoring Critical Care Time: The high probability of a clinically significant, sudden or life threatening deterioration of the patient's [respiratory, cardiac, infectious] system(s) required my full and direct attention, intervention and personal management. The critical care time is as shown. This time is in addition to time spent performing any reported procedures but includes the following: [x] Data and vital sign review and interpretation [x] Patient assessment, examination and intervention [x] Documentation [x] Medication orders and management Critical Care Time (min): 45 Coding Level of Care Code Established Pt Acute Help Desk Internship for Chg Fwd Patient Type Established History Comprehensive Exam Comprehensive Medical Decision Making High Complexity Diagnoses Sepsis A41.9 Sepsis acute organ dysfunction status: unspecified Sepsis type: sepsis due to unspecified organism Mass of right lung R91.8 CHF exacerbation I50.9 Heart failure type: unspecified CAP (community acquired pneumonia) J18.9 Laterality: right Lung location: lower lobe of lung Loculated pleural effusion J90 COPD (chronic obstructive pulmonary disease) J44.9 COPD type: unspecified COPD Smoker F17.200 Hypokalemia E87.6 Time Spent (min) 45
[2021-01-17] MEDS: lidocaine 1% INJ 20 mL INJECTION (15:42)
--- NOTE | 2021-01-17 16:33 | XRR_ITS ---
PROCEDURE INFORMATION: Exam: XR Chest Exam date and time: 01/17/2021 4:33 PM Age: 60 years old Clinical indication: Device placement; Other: Right pigtail placement; Additional info: Post right pigtail placement TECHNIQUE: Imaging protocol: XR of the chest. Views: 1 view. COMPARISON: CR (CHEST, ) 01/17/2021 4:34 AM FINDINGS: Tubes, catheters and devices: No visible chest tube. Lungs: Right lung volume loss. Rounded right apical opacity may represent upper lobe consolidation. Pleural spaces: Small volume right pleural effusion. Right apical pneumothorax cannot be confidently excluded. Heart/Mediastinum: Mediastinal shift to the right. Bones/joints: Unremarkable. Soft tissues: Rightward chest rotation distorts the image. XR/XR chest 1V portable [id number] IMPRESSION: No visible chest tube.
[2021-01-17 17:02] LABS: Monocytes # Body Fluid 4.507
--- NOTE | 2021-01-17 17:13 | PM.ACPR ---
Procedure/Consent Time out: Time Out Performed: Yes Consent: Consent for Procedure: Consent obtained from patient, Risks & Benefits reviewed and Agrees to proceed with procedure Procedure Narrative: 14 Fr right chest tube placement Date of procedure: 01/17/2021 Pre-op Diagnosis: Loculated pleural effusion with gas bubbles suspected empyema Post-op diagnosis: same Procedure Done: 1. Right 14 Haitian chest tube placement Pathology: Cytology of right pleural fluid Data Security Consultant: Aman Davis MD Anesthesia: Local Brief History: Procedure: The patient was placed in the sitting position. Bedside ultrasound showed loculated pleural effusion just lateral to right mid scapular line and area marked. Patient has subcutaneous tissue of about 6 to 6.5 cm thickness. Continous monitoring of heart rate, rhythm, ekg, and O2 saturation. The entire right posterior lateral chest wall was thoroughly prepped and draped. 25 cc 1% lidocaine was infiltrated in the just lateral to right mid scapular line on the area marked with ultrasound guidance. Long introducer needle in the kit used to locate pleural space and about 20 cc turbid straw-colored fluid aspirated and collected for pleural analysis, cultures and cytology. Using Seldinger technique guidewire was passed and the introducer needle was taken out. After making a generous incision at the site of guidewire through the subcutaneous tissue, 14 Haitian chest tube is placed in the pleural space with the help of dilator stylette. Once the chest tube is inserted the pleural cavity dilator stylette along with guidewire was taken out and noted draining straw-colored turbid fluid which was connected to atrium with continuous suction. Chest tube was secured to the skin followed by placement of sterile dressings. Chest tube is placed to Pleur-evac suction. 400 cc fluid drained in the next 15 minutes. Complications: Post procedure chest x-ray reveals small volume right pleural effusion. Right apical pneumothorax cannot be confidently excluded. Mediastinal shift to the right. Rounded right pedicle opacity may represent upper lobe consolidation Condition: critical Disposition: ICU EBL-10 to 15 mL Acute Procedures Epistaxis Control: Time out performed: Yes
[2021-01-17 17:41] LABS: Apprearance, Body Fluid CLOUDY; Color, Body Fluid PALE YELLOW
[2021-01-17 18:08] LABS: Albumin Body Fluid 2.3 g/dL; Amylase Body Fluid 18 U/L; Cholesterol Body Fluid 74 mg/dL (0-200); Total Protein Pleural Fluid 4.7 g/dL
[2021-01-17 18:09] LABS: Fluid Alkaline Phos. 5 IU/L; Triglycerides Body Fluid 52 mg/dL (0-150)
[2021-01-17 18:22] LABS: LDH Body Fluid 2354 U/L
[2021-01-17 18:37] LABS: Vancomycin Trough 14.3 ug/mL (10-15)
[2021-01-17 19:13] LABS: Uric Acid Body Fluid 4 mg/dL
[2021-01-17] MEDS: vancomycin 1,500 MG/300 ML PIGGYBACK 200 MG IV (19:47)
--- NOTE | 2021-01-17 21:22 | PC.NURSE ---
2030 - Altaplase instilled into right pleural chest tube as ordered, chest tube clamped.
--- NOTE | 2021-01-17 21:33 | PC.NURSE ---
Unclamped right pleural chest tube, cloudy yellow drainage noted to collection chamber. Tolerated well.
[2021-01-18] VITALS (29 sets, daily range): BP systolic 112–161; BP diastolic 61–99; PULSE 68–108; RESP 15–29; TEMP 36.2–36.8; O2SAT 87–100
[2021-01-18] MEDS: vancomycin 1,500 MG/300 ML PIGGYBACK 200 MG IV ×3 (03:43→20:17)
[2021-01-18] MEDS: piperacillin-tazobactam 3.375 GM in sodium chloride 0.9% (plus) 50 ML IV ×3 (05:32→21:52)
[2021-01-18 05:36] LABS: Basophils # 0.1 10^3/uL (0.0-0.1); Basophils % 0.2 %; Eosinophils % 0.1 %; Hemoglobin 13.4 g/dL (11.7-16.6); Lymphocytes # 1.6 10^3/uL (0.8-4.8); Lymphocytes % 6.1 %; Mean Corpuscular HGB Conc 32.7 g/dL (30.0-36.0); Mean Corpuscular Hemoglobin 27.8 pg (28.0-34.0); Mean Corpuscular Volume 85.1 fL (80-94); Mean Platelet Volume 10.6 fL (7.4-10.4); Monocytes # 2.3 10^3/uL (0.2-0.9); Monocytes % 8.9 %; Neutrophils # 21.52 10^3/uL (1.8-7.7); Neutrophils % 83.7 %; Nucleated Red Blood Cells % 0 %; Platelet Count 346 10^3/cmm (130-400); Red Blood Count 4.82 10^6/uL (4.1-5.3); Red Cell Distribution Width 13.7 % (12.1-15.1); White Blood Count 25.7 10^3/uL (4.0-10.0)
[2021-01-18 05:52] LABS: Alanine Aminotransferase 12 U/L (0-41); Albumin Level 2.6 g/dL (3.5-5.2); Alkaline Phosphatase 121 IU/L (40-130); Aspartate Amino Transferase 22 U/L (0-40); Blood Urea Nitrogen 18 mg/dL (8-23); Calcium 8.9 mg/dL (8.5-10.5); Carbon Dioxide 25 mmol/L (22-29); Chloride 91 mmol/L (98-107); Globulin 3.2 g/dL (1.3-4.6); Glomerular Filtration Rate 136.5 mL/min (90-130); Glucose 95 mg/dL (65-115); Osmolality Calculated 272 mOsm/kg (285-295); Sodium 130 mmol/L (136-145); Total Protein 5.8 g/dL (6.6-8.7)
[2021-01-18 05:53] LABS: Anion Gap 17.3 (5-19); Potassium 3.3 mmol/L (3.5-5.1)
[2021-01-18] MEDS: levoFLOXacin 750 mg Tablet PO (05:53)
--- NOTE | 2021-01-18 06:56 | XR_ITS ---
WS: [id number] Portable AP upright chest, 01/18/2021 Clinical Data: right pleural effusion Comparison: Portable chest, 01/17/2021 Findings: There is a density in the right upper lobe which may represent atelectasis and consolidatio n. There is elevation of the right diaphragm. There is a shift of the heart and mediastinum from left -to-right which has improved since yesterday. The left lung remains clear. The heart is probably enla rged. Monitor leads are on the chest wall. XR/XR chest 1V portable [id number] Impression: 1. Right upper lobe density which may represent consolidation and loculated eff usion. 2. Elevation of the right diaphragm. 3. Improvement in [id number] mediastinal shift.
[2021-01-18] MEDS: FUROsemide 40 mg Tablet PO ×2 (07:29→16:09)
[2021-01-18] MEDS: ketorolac 30 mg/mL INJ IVP (08:03)
[2021-01-18] MEDS: BuSPIRONE 10 mg Tablet PO ×3 (08:30→20:17)
[2021-01-18] MEDS: metoprolol tartrate 25 mg Tablet PO ×2 (08:31→20:17)
--- NOTE | 2021-01-18 09:31 | P.PN_ITS ---
Subjective Subjective: Interval history: feels symptomatically relief today, 02 requireemnts down to 3lpm which is close to home requirement, cx and cytology perlita aremains pending Medications: Reviewed: Yes Vitals/I&O/Wt Last Vital Signs Temp 97.6 F 01/18/21 07:48 Pulse 108 H 01/18/21 07:00 Resp 22 H 01/18/21 07:00 BP 150/90 01/18/21 07:00 Pulse Ox 95 01/18/21 07:00 01/17/21 01/18/21 01/18/21 22:59 06:59 14:59 Intake Total 660 / 960 600 / 1560 Output Total 2025 / 2750 1100 / 3850 Balance -1365 / -1790 -500 / -2290 Weight last 48 hrs Weight 150.048 kg Physical Exam Narrative: EXAM NARRATIVE: GEN: Awake, alert and oriented, no acute distress CVS: S1S2 N RS: Reducd breath sounds RLL Abd: Soft, nt/nd , bs+ ENGINEER CHIEF: no focal neuro deficits Ext: 1+ pitting edema B/L LE Data : 01/18/21 04:49 01/18/21 04:49 Micro: Microbiology 01/17/21 03:30 MRSA Culture - Final Nose 01/17/21 05:30 Legionella Urinary Antigen - Final Urine,Voided Bacterial Antigens - Final 01/16/21 17:00 Gram Stain - Final Lung Right Lower Lobe A&P Assessment and plan (1) Sepsis: Status: Acute Qualifiers: Sepsis type: sepsis due to unspecified organism Sepsis acute organ dysfunction status: unspecified Qualified Code(s): A41.9 - Sepsis, unspecified organism (2) Hypokalemia: Status: Acute (3) CHF exacerbation: Status: Acute Qualifiers: Heart failure type: unspecified Qualified Code(s): I50.9 - Heart failure, unspecified (4) CAP (community acquired pneumonia): Status: Acute Qualifiers: Laterality: right Lung location: lower lobe of lung Qualified Code(s): J18.9 - Pneumonia, unspecified organism (5) Mass of right lung: Status: Acute Additional A&P Information Sepsis Likely secondary to pneumonia +/- empyema, currently under evalaution, cannot exclude post obstructive pneumonia from mass at this time. Criteria met with tachypnea, tachycardia, lactic acid, leukocytosis, CTA ruled out PE ; loculated pleural effusion noted, s/p chest tube placement 01/17, cx data pending Prelim pleural fluid analysis with exudative effusion, likely parapneumonic micro data from bronchoscopy pending Superior segment of right lower lobe showing masslike infiltrate 3.9 x 4.9 x 4.5 cm continue zosyn, vancomycin and levaquin empirically Hypokalemia: This seems secondary to recent increase in Lasix dosage Potassium replted Intermittent A fib: not new per history, has been evaluated by dry cleaner helper in [place], was told he has a leaky valve but has not been recommended surgical correction or anticoagulation. Echo requested resume metoprolol No active chest pain no signs of ACS N.p.o. Full code Attestations Medical Necessity Statement*: chest tube in place. ongoing need for iv abx Coding Level of Care Code Acute Interior Decorator Painting for Chg Fwd Diagnoses Sepsis A41.9 Sepsis type: sepsis due to unspecified organism Sepsis acute organ dysfunction status: unspecified Hypokalemia E87.6 CHF exacerbation I50.9 Heart failure type: unspecified CAP (community acquired pneumonia) J18.9 Laterality: right Lung location: lower lobe of lung Mass of right lung R91.8
--- NOTE | 2021-01-18 09:39 | PC.CHAP ---
Pastoral Care Encounter/Spiritual Assessment Type of Contact [] Declined email manager visit [] Patient/Family/Request visit [] Outpatient visit [] Follow-up visit [] Physician referral [] Code/Alert [x] Routine visit [] Staff referral [] Actively dying [] Patient sleeping [] Family support [] [] Out of room [] Palliative care [] [x] Receiving care in room [] Pre-surgical visit [] Trauma [] Long length of stay [x] ICU visit [x] Other: setting up in chair with assistance Relational/Emotional Strength [] Patient feels connected with others/family/visitors/staff [] Distress [] Loneliness/isolation [] Abandonment Spirituality of Patient [] Person of Alexsandra [] Attends Mandaeism of their Alexsandra [] Believes in Prayer [] Reads Bible or Sabianist materials [] There are Spiritual issues to be addressed Artificial Candy Maker Interventions [x] Prayer [] Active listening [] Non-anxious presence [] Spiritual/emotional support [] Crisis/trauma care [] Spiritual counseling [] Bereavement support [] Provided bereavement packet [] Provided Bible/devotional materials [] Provided toy/stuffed animal, coloring book to patient or family member [] Provided Communion [] Anointing/[place] [] Salvation [x] Completed spiritual assessment [] Other: Impact on Illness or Injury [] Angry [] Fearful [] Anxious [] Often cries [] Exhaustion [] Unable to work [] Unable to attend adventism [] Unable to walk/stand [] Unable to read [] Unable to drive [] Unable to eat/drink [] Unable to sleep [] Unable to be with family [] Patient intubated [] Other: Summary Time spent with patient
[2021-01-18] MEDS: ipratropium-albuterol 3 mL Neb INHALATION ×2 (09:59→14:56)
--- NOTE | 2021-01-18 10:03 | PC.NURSE ---
[address] Toussaint.
[2021-01-18] MEDS: nicotine 21 mg Patch 1 PATCH TRANSDERMA (10:59)
[2021-01-18] MEDS: potassium chloride ER 20 mEq Tablet 40 MEQ PO (10:59)
--- NOTE | 2021-01-18 13:00 | PC.NURSE ---
[address] Toussaint. Reviewed labs, vital signs, and medications. Discussed plan of care. Orders for Nicotine patch.
[2021-01-18] MEDS: acetaminophen 500 mg Tablet PO (17:30)
[2021-01-18 20:13] LABS: Vancomycin Trough 18.8 ug/mL (10-15)
[2021-01-18] MEDS: amitriptyline 25 mg Tablet 100 MG PO (20:17)
--- NOTE | 2021-01-18 22:38 | PM.PN ---
Subjective Subjective: Interval history: -Patient seen at bedside today morning -Reported improvement in his breathing, down to 2 L nasal cannula from 5 L -WBC came down to 25K -chest x-ray showed slight improvement in mediastinal shift -Labs and imaging reviewed and pertinent findings incorporated in assessment and plan -About 450 cc more fluid drained after TPA yesterday evening -Plan is to give TPA 10 mg 2 doses every 12 today Medications: Reviewed: Yes Vitals/I&O/Wt Last Vital Signs Temp 97.5 F L 01/18/21 19:00 Pulse 100 01/18/21 21:22 Resp 20 H 01/18/21 21:00 BP 156/79 01/18/21 21:00 Pulse Ox 97 01/18/21 21:22 01/18/21 01/18/21 01/18/21 06:59 14:59 22:59 Intake Total 600 / 1560 680 / 680 830 / 1510 Output Total 1100 / 3850 450 / 450 890 / 1340 Balance -500 / -2290 230 / 230 -60 / 170 Weight last 48 hrs Weight 330 lb 12.8 oz Physical Exam Narrative: EXAM NARRATIVE: General: alert, NAD HEENT: conj clear, EOMI, PERRL, mmm, Neck: supple, no meningismus Heme: no cervical LAP Pulmonary: Reduced breath sounds on right lower lobe, 14 Slov[place] chest tube placed on right posterior lateral chest wall and dressing applied Cardiovascular: rrr, nl s1s2, no mrg Abdomen: soft, nt, nd, no r/g, bs+ Extremities: pulses +, 1+ pitting pedal edema, no c/c : no CVA tenderness Skin: intact, no rash MSK: no back or neck pain Neurologic: grossly intact Data : 01/18/21 04:49 01/18/21 04:49 Other Labs: Laboratory Results WBC 25.7 10^3/uL (4.0-10.0) H 01/18/21 04:49 RBC 4.82 10^6/uL (4.1-5.3) 01/18/21 04:49 Hgb 13.4 g/dL (11.7-16.6) 01/18/21 04:49 Hct 41.0 % (42.0-52.0) L 01/18/21 04:49 MCV 85.1 fL (80-94) 01/18/21 04:49 MCH 27.8 pg (28.0-34.0) L 01/18/21 04:49 MCHC 32.7 g/dL (30.0-36.0) 01/18/21 04:49 RDW 13.7 % (12.1-15.1) 01/18/21 04:49 Plt Count 346 10^3/cmm (130-400) 01/18/21 04:49 MPV 10.6 fL (7.4-10.4) H 01/18/21 04:49 Neut % (Auto) 83.7 % 01/18/21 04:49 Lymph % (Auto) 6.1 % 01/18/21 04:49 [place] % (Auto) 8.9 % 01/18/21 04:49 Eos % (Auto) 0.1 % 01/18/21 04:49 Baso % (Auto) 0.2 % 01/18/21 04:49 Neut # (Auto) 21.52 10^3/uL (1.8-7.7) H 01/18/21 04:49 Lymph # (Auto) 1.6 10^3/uL (0.8-4.8) 01/18/21 04:49 [place] # (Auto) 2.3 10^3/uL (0.2-0.9) H 01/18/21 04:49 Eos # (Auto) 0.0 10^3/uL (0.0-0.8) 01/18/21 04:49 Baso # (Auto) 0.1 10^3/uL (0.0-0.1) 01/18/21 04:49 Nucleated RBC % (auto) 0 % 01/18/21 04:49 Total Counted Cancelled 01/17/21 16:40 Nucleated RBCs # 0.0 /100WBC 01/18/21 04:49 Differential Comment Production Stage Manager 01/17/21 16:14 D-Dimer 3.64 ug/mIFEU (0-0.59) H 01/16/21 00:12 Sodium 130 mmol/L (136-145) L 01/18/21 04:49 Potassium 3.3 mmol/L (3.5-5.1) L 01/18/21 04:49 Chloride 91 mmol/L (98-107) L 01/18/21 04:49 Carbon Dioxide 25 mmol/L (22-29) 01/18/21 04:49 Anion Gap 17.3 (5-19) 01/18/21 04:49 BUN 18 mg/dL (8-23) 01/18/21 04:49 Creatinine 0.6 mg/dL (0.7-1.2) L 01/18/21 04:49 GFR Calculation 136.5 mL/min (90-130) H 01/18/21 04:49 Glucose 95 mg/dL (65-115) 01/18/21 04:49 Calculated Osmolality 272 mOsm/kg (285-295) L 01/18/21 04:49 Lactic Acid 3.2 mmol/L (0.5-2.2) H 01/16/21 02:18 Calcium 8.9 mg/dL (8.5-10.5) 01/18/21 04:49 Magnesium 2.1 mg/dL (1.7-2.3) 01/17/21 03:23 Total Bilirubin 1.0 mg/dL (0.15-1.2) 01/18/21 04:49 AST 22 U/L (0-40) 01/18/21 04:49 ALT 12 U/L (0-41) 01/18/21 04:49 Alkaline Phosphatase 121 IU/L (40-130) 01/18/21 04:49 Lactate Dehydrogenase 148 U/L (135-225) 01/16/21 00:12 Troponin T Baseline 13 ng/L (0-15) 01/16/21 00:12 NT-Pro-B Natriuret Pep 873 pg/mL (0-125) H 01/16/21 00:12 Total Protein 5.8 g/dL (6.6-8.7) L 01/18/21 04:49 Albumin 2.6 g/dL (3.5-5.2) L 01/18/21 04:49 Globulin 3.2 g/dL (1.3-4.6) 01/18/21 04:49 Procalcitonin 1.35 ng/mL (0-0.5) H 01/16/21 00:12 Fluid Color Pale yellow 01/17/21 16:14 Fluid Appearance Cloudy 01/17/21 16:14 Fluid Specific Grav 1.010 01/17/21 16:14 Fluid pH 8.0 01/17/21 16:14 Fluid WBC 88315 /uL 01/17/21 16:14 Fluid RBC 3.000 10^3/uL 01/17/21 16:14 Fluid Tot Cell Count Production Stage Manager 01/17/21 16:14 Fld Polynuclear WBCs # 23.565 01/17/21 16:14 Fld Polynuclear WBCs % 83.900 % 01/17/21 16:14 Fl Mononucl WBCs #(Auto) 4.507 01/17/21 16:14 Fl Mononuclear % Auto 16.100 % 01/17/21 16:14 Fluid Glucose 2.0 mg/dL 01/17/21 16:14 Fluid Albumin 2.3 g/dL 01/17/21 16:14 Fluid LDH 2354 U/L 01/17/21 16:14 Fluid Amylase 18 U/L 01/17/21 16:14 Fluid Alk Phosphatase 5 IU/L 01/17/21 16:14 Fluid Cholesterol 74 mg/dL (0-200) 01/17/21 16:14 Fluid Triglycerides 52 mg/dL (0-150) 01/17/21 16:14 Fluid Uric Acid 4 mg/dL 01/17/21 16:14 Pleural Color Cancelled 01/17/21 16:40 Pleural Appearance Cancelled 01/17/21 16:40 Pleural WBC Cancelled 01/17/21 16:40 Pleural RBC Cancelled 01/17/21 16:40 Pleural Other Cells Cancelled 01/17/21 16:40 Pleural Polynuclear % Cancelled 01/17/21 16:40 Pleural Mononuclear % Cancelled 01/17/21 16:40 Pleural Total Protein 4.7 g/dL 01/17/21 16:14 Vancomycin Trough 18.8 ug/mL (10-15) H 01/18/21 18:48 SARS-CoV-2 Ag (Rapid) Negative (Negative) 01/16/21 02:31 Path Cons w/Slide Cancelled 01/17/21 16:40 Impressions Chest CTA 01/16/21 03:01 IMPRESSION: 1. There is no evidence for pulmonary emboli. 2. There is a loculated pleural fluid collection seen on the right containing some mottled gas densities, findings worrisome for empyema. 3. Patchy opacities, consolidation and masslike infiltrates are seen in the right lower lobe superimposed over the loculated pleural fluid collection. Aspiration pneumonia with anaerobic organisms could have this appearance. Underlying bronchogenic mass cannot be excluded as well. Radiation Dose CTDIVOL = (mGy): DLP = 1226.2 (mGy-cm) Chest X-Ray 01/18/21 06:56 Impression: 1. Right upper lobe density which may represent consolidation and loculated effusion. 2. Elevation of the right diaphragm. 3. Improvement in [id number] mediastinal shift. Micro: Microbiology 01/17/21 16:14 Gram Stain - Final Pleural Fluid 01/16/21 17:00 Gram Stain - Final Lung Right Lower Lobe Bronchoalveolar Lavage Culture - Preliminary 01/17/21 03:30 MRSA Culture - Final Nose A&P Assessment and plan (1) Sepsis: Status: Acute Qualifiers: Sepsis type: sepsis due to unspecified organism Sepsis acute organ dysfunction status: unspecified Qualified Code(s): A41.9 - Sepsis, unspecified organism (2) Mass of right lung: Status: Acute (3) CHF exacerbation: Status: Acute Qualifiers: Heart failure type: unspecified Qualified Code(s): I50.9 - Heart failure, unspecified (4) CAP (community acquired pneumonia): Status: Acute Qualifiers: Laterality: right Lung location: lower lobe of lung Qualified Code(s): J18.9 - Pneumonia, unspecified organism (5) Loculated pleural effusion: Status: Acute (6) COPD (chronic obstructive pulmonary disease): Status: Acute Qualifiers: COPD type: unspecified COPD Qualified Code(s): J44.9 - Chronic obstructive pulmonary disease, unspecified (7) Smoker: Status: Acute (8) Hypokalemia: Status: Acute #Sepsis secondary to RLL pneumonia and possible post obstructive pneumonia #Loculated Rt pleural effusion with moderate gas densities on CT suspicious for empyema #Superior segment of RLL showing mass like infiltrate 3.9 x 4.9 x 4.5 cm #Chronic smoker 2 pack/day for several years #H/O underlying COPD - mMRC 2 no reported exacerbations prior to this hospitalization - not in exacerbation; -need PFTs as outpatient #History of CHF on Lasix 40 mg twice daily #Hypokalemia-likely due to recent increase in Lasix dose # Anion gap metabolic acidosis likely due to lactic acidosis due to sepsis -Afebrile since admission, improving leukocytosis, high procalcitonin 1.35; - Saturating 94% on 2 L nasal cannula -Endorses history of vomiting and possible aspiration prior to admission -Currently empirically on vancomycin, Levaquin and Zosyn day 4 -Blood cultures pending negative to date, urine bacterial antigens negative, Legionella antigen negative, MRSA nares nondetected -S/p bronchoscopy today afternoon-showed edematous mucosa in right upper lobe and lower lobe and near complete occlusion of superior segment of right lower lobe, copious mucus secretions aspirated and BAL sent for cytology, bacterial cultures, AFB and fungal cultures -results pending -Bedside ultrasound today showed loculated pleural effusion and posterior lateral chest wall--14 Slovak pigtail placed on 01/17/2021 posteriorly and connected to continuous suction-400 cc turbid straw-colored pleural fluid drained; small air leak noted that improved after some time -Pleural fluid sample sent for microbiology cultures, fungal cultures, AFB and cell count and pleural fluid analysis - Neutrophilic predominant exudative pleural effusion with significantly low glucose-parapneumonic effusion likely empyema-results pending -Instilled 1 dose TPA 10 mg yesterday and drained 450 cc of fluid; plan is to give 3 more doses of TPA 10 mg every [address] chest -Chest x ray today: Right upper lobe density which may represent consolidation and loculated effusion. Elevation of the right diaphragm. Improvement in [id number] mediastinal shift. - BNP 800, Awating Echo, continue Lasix to 40 mg twice daily and monitor electroytes and Input and out put. - COPD Not in exacerbation - duoneb q6r hr prn wheezing or shortness of breath - CT imaging cannot rule out underlying malignancy in RLL given history of significant smoking; once infection is treated and optimizing CHF; and if cytology sent from today's BAL is negative -he will need endobronchial biopsy (patient has reservations about obtaining biopsies) - Counselled to quit smoking and he agreed to quit - Counselled to stay uptodate with flu and pneumonia vaccination in future - Need PFTS/6MWT as out patient - Patient needs LAMA/LABA/ICS (Trelegy 1 puff daily or Breztri 2 puffs bid) upon discharge We will continue clinical monitoring and cover with broad-spectrum antibiotics and will repeat CT chest tomorrow afternoon-if loculations persist-patient needs VATS Medical condition, labs and investigations and plan of management explained in detail to the patient. recommendations conveyed to hospitalist and RN covering the patient Attestations Medical Necessity Statement*: Acute hypoxic respiratory failure secondary to sepsis due to empyema and loculated right pleural effusion with atelectasis and mediastinal shift to the right, possible endobronchial lesions in patient with underlying COPD and CHF needs close monitoring Critical Care Time: The high probability of a clinically significant, sudden or life threatening deterioration of the patient's [respiratory, cardiac, infectious] system(s) required my full and direct attention, intervention and personal management. The critical care time is as shown. This time is in addition to time spent performing any reported procedures but includes the following: [x] Data and vital sign review and interpretation [x] Patient assessment, examination and intervention [x] Documentation [x] Medication orders and management Critical Care Time (min): 45 Coding Level of Care Code Established Pt Acute Credit Correspondence Clerk for Chg Fwd Patient Type Established History Comprehensive Exam Comprehensive Medical Decision Making High Complexity Diagnoses Sepsis A41.9 Sepsis type: sepsis due to unspecified organism Sepsis acute organ dysfunction status: unspecified Mass of right lung R91.8 CHF exacerbation I50.9 Heart failure type: unspecified CAP (community acquired pneumonia) J18.9 Laterality: right Lung location: lower lobe of lung Loculated pleural effusion J90 COPD (chronic obstructive pulmonary disease) J44.9 COPD type: unspecified COPD Smoker F17.200 Hypokalemia E87.6 Time Spent (min) 45
--- NOTE | 2021-01-18 22:50 | PC.NURSE ---
2039 - Right pleural chest tube clamped, altaplase instilled as ordered. Tolerated well. 2144 - Right pleural chest tube unclamped, pink tinged output noted.
[2021-01-19] VITALS (23 sets, daily range): BP systolic 122–170; BP diastolic 63–110; PULSE 81–133; RESP 14–26; TEMP 36.3–36.7; O2SAT 9–99
[2021-01-19] MEDS: vancomycin 1,500 MG/300 ML PIGGYBACK 200 MG IV ×3 (03:31→21:02)
--- NOTE | 2021-01-19 04:00 | XR_ITS ---
WS: [id number] Portable AP upright chest, 01/19/2021 Clinical Data: f/up effusion Comparison: Portable chest, 01/18/2021. Findings: There is a small right pleural based chest tube in position. The consolidation and density in the right upper lobe has increased slightly. The heart remains enlarged. The left lung is clear. M onitor leads are on the chest wall. XR/XR chest 1V portable [id number] Impression: 1. Insertion of small right basilar chest tube with no pneumothorax. 2. Increase in right upper lobe opacity. 3. Cardiomegaly.
--- NOTE | 2021-01-19 04:31 | PC.NURSE ---
0400 - Assisted to chair at bedside. Tolerated well, patient states he is much more comfortable.
[2021-01-19] MEDS: piperacillin-tazobactam 3.375 GM in sodium chloride 0.9% (plus) 50 ML IV ×3 (05:42→22:12)
[2021-01-19] MEDS: levoFLOXacin 750 mg Tablet PO (05:42)
[2021-01-19] MEDS: FUROsemide 40 mg Tablet PO ×2 (07:18→15:21)
[2021-01-19] MEDS: acetaminophen 500 mg Tablet PO ×2 (07:18→11:51)
[2021-01-19] MEDS: nicotine 21 mg Patch 1 PATCH TRANSDERMA (08:45)
[2021-01-19] MEDS: BuSPIRONE 10 mg Tablet PO ×2 (08:46→15:21)
[2021-01-19] MEDS: metoprolol tartrate 25 mg Tablet PO ×2 (08:46→21:16)
[2021-01-19] MEDS: potassium chloride ER 20 mEq Tablet 40 MEQ PO (08:46)
--- NOTE | 2021-01-19 09:08 | PC.CHAP ---
Pastoral Care Encounter/Spiritual Assessment Type of Contact [] Declined multimedia teacher visit [] Patient/Family/Request visit [] Outpatient visit [] Follow-up visit [] Physician referral [] Code/Alert [x] Routine visit [] Staff referral [] Actively dying [] Patient sleeping [] Family support [] [] Out of room [] Palliative care [] [] Receiving care in room [] Pre-surgical visit [] Trauma [] Long length of stay [x] ICU visit [] Other: Relational/Emotional Strength [] Patient feels connected with others/family/visitors/staff [] Distress [] Loneliness/isolation [] Abandonment Spirituality of Patient [x] Person of [place] [] Attends Episcopalian of their [place] [] Believes in Prayer [] Reads Bible or Church materials [] There are Spiritual issues to be addressed [employer]verter Interventions [x] Prayer [x] Active listening [x] Non-anxious presence [x] Spiritual/emotional support [] Crisis/trauma care [] Spiritual counseling [] Bereavement support [] Provided bereavement packet [] Provided Bible/devotional materials [] Provided toy/stuffed animal, coloring book to patient or family member [] Provided Communion [] Anointing/[place] [] Salvation [x] Completed spiritual assessment [] Other: Impact on Illness or Injury [] Angry [] Fearful [] Anxious [] Often cries [] Exhaustion [] Unable to work [] Unable to attend church [] Unable to walk/stand [] Unable to read [] Unable to drive [] Unable to eat/drink [] Unable to sleep [] Unable to be with family [] Patient intubated [] Other: Summary patient setting up in chair... feeling stronger today.. Time spent with patient 10 min
[2021-01-19 09:38] LABS: Alanine Aminotransferase 15 U/L (0-41); Alkaline Phosphatase 110 IU/L (40-130); Aspartate Amino Transferase 22 U/L (0-40); Glucose 101 mg/dL (65-115)
[2021-01-19 10:00] LABS: Anion Gap 14.1 (5-19); Blood Urea Nitrogen 17 mg/dL (8-23); Carbon Dioxide 28 mmol/L (22-29); Chloride 90 mmol/L (98-107); Potassium 3.1 mmol/L (3.5-5.1); Sodium 129 mmol/L (136-145)
[2021-01-19 10:01] LABS: Albumin Level 2.3 g/dL (3.5-5.2); Globulin 4.5 g/dL (1.3-4.6); Glomerular Filtration Rate 168.5 mL/min (90-130); Osmolality Calculated 270 mOsm/kg (285-295); Total Bilirubin 0.8 mg/dL (0.15-1.2); Total Protein 6.8 g/dL (6.6-8.7)
--- NOTE | 2021-01-19 10:25 | P.PN_ITS ---
Subjective Subjective: Interval history: WBC count not available this morning, hemodynamically stable, oxygen requirement at 2 L/min nasal cannula, saturating 94%. Net -3 L since admission. Chest tube output at 600 cc. BAL and pleural fluid culture remains pending. Medications: Reviewed: Yes Vitals/I&O/Wt Last Vital Signs Temp 98.0 F 01/19/21 04:00 Pulse 90 01/19/21 09:33 Resp 16 01/19/21 09:33 BP 122/91 01/19/21 06:00 Pulse Ox 94 01/19/21 09:33 01/18/21 01/19/21 01/19/21 22:59 06:59 14:59 Intake Total 1140 / 1820 600 / 2420 Output Total 1970 / 2420 1315 / 3735 250 / 250 Balance -830 / -600 -715 / -1315 -250 / -250 Weight last 48 hrs Weight 150.048 kg Physical Exam Narrative: EXAM NARRATIVE: GEN: Awake, alert and oriented, no acute distress CVS: S1S2 N RS: Reducd breath sounds RLL Abd: Soft, nt/nd , bs+ HAIRSPRING SETTER: no focal neuro deficits Ext: 1+ pitting edema B/L LE Data : 01/18/21 04:49 01/19/21 09:14 Micro: Microbiology 01/16/21 17:00 Gram Stain - Final Lung Right Lower Lobe Bronchoalveolar Lavage Culture - Final 01/17/21 16:14 Gram Stain - Final Pleural Fluid Body Fluid Culture - Preliminary A&P Assessment and plan (1) Sepsis: Status: Acute Qualifiers: Sepsis type: sepsis due to unspecified organism Sepsis acute organ dysfunction status: unspecified Qualified Code(s): A41.9 - Sepsis, unspecified organism (2) Hypokalemia: Status: Acute (3) CHF exacerbation: Status: Acute Qualifiers: Heart failure type: unspecified Qualified Code(s): I50.9 - Heart f ailure, unspecified (4) CAP (community acquired pneumonia): Status: Acute Qualifiers: Laterality: right Lung location: lower lobe of lung Qualified Code(s): J18.9 - Pneumonia, unspecified organism (5) Mass of right lung: Status: Acute Additional A&P Information Sepsis Likely secondary to pneumonia +/- empyema, cannot exclude post obstructive pneumonia from mass at this time. CTA ruled out PE ; loculated pleural effusion noted, s/p chest tube placement 01/17, cx data pending Chest tube output currently at 600 cc Prelim pleural fluid analysis with exudative effusion, likely parapneumonic micro data from bronchoscopy and thoracentesis pending Superior segment of right lower lobe showing masslike infiltrate 3.9 x 4.9 x 4.5 cm, patient had refused any biopsies during bronchoscopy. continue zosyn, vancomycin and levaquin empirically for now. Monitor vancomycin levels Hypokalemia: Repleted Intermittent A fib: Currently in sinus rhythm, rate controlled, metoprolol was increased yesterday Echo requested, however it appears the orders had popped off. Requested again for today. No active chest pain no signs of ACS Transfer out of ICU to [facility] floor with telemetry Cardiac diet Full code DVT prophylaxis Lovenox Attestations Medical Necessity Statement*: Currently chest tube in place to suction, plan for chest tube removal tomorrow, repeat CT chest for improvement and thereafter further decisions regarding VATS versus serial monitoring. Critical Care Time: The high probability of a clinically significant, sudden or life threatening deterioration of the patient's [respiratory] system(s) required my full and direct attention, intervention and personal management. The critical care time is as shown. This time is in addition to time spent performing any reported procedures but includes the following: [x] Data and vital sign review and interpretation [x] Patient assessment, examination and intervention [x] Documentation [x] Medication orders and management Critical Care Time (min): 35 Coding Level of Care Code Acute Technical Training Manager for [facility] Fwd Diagnoses Sepsis A41.9 Sepsis type: sepsis due to unspecified organism Sepsis acute organ dysfunction status: unspecified Hypokalemia E87.6 CHF exacerbation I50.9 Heart failure type: unspecified CAP (community acquired pneumonia) J18.9 Laterality: right Lung location: lower lobe of lung Mass of right lung R91.8
[2021-01-19 10:42] LABS: Basophils # 0.1 10^3/uL (0.0-0.1); Basophils % 0.5 %; Eosinophils # 0.1 10^3/uL (0.0-0.8); Eosinophils % 0.7 %; Hematocrit 43.5 % (42.0-52.0); Lymphocytes # 1.8 10^3/uL (0.8-4.8); Lymphocytes % 8.8 %; Mean Corpuscular HGB Conc 32.2 g/dL (30.0-36.0); Mean Corpuscular Hemoglobin 27.6 pg (28.0-34.0); Mean Corpuscular Volume 85.6 fL (80-94); Mean Platelet Volume 10.4 fL (7.4-10.4); Monocytes # 1.9 10^3/uL (0.2-0.9); Monocytes % 9.3 %; Neutrophils # 15.66 10^3/uL (1.8-7.7); Neutrophils % 79.2 %; Nucleated Red Blood Cells % 0 %; Platelet Count 394 10^3/cmm (130-400); Red Blood Count 5.08 10^6/uL (4.1-5.3); Red Cell Distribution Width 13.8 % (12.1-15.1); White Blood Count 19.8 10^3/uL (4.0-10.0)
[2021-01-19 10:59] LABS: NT Pro B Type Natriuretic Pept 333 pg/mL (0-125)
--- NOTE | 2021-01-19 12:53 | PM.PN ---
Subjective Subjective: Interval history: -Patient seen at bedside today -Patient is sitting out of bed to chair and breathing comfortably on 4 L nasal cannula -Chest tube output 600 over last 24 hours after 2 doses of TPA -He is scheduled to get another dose today morning and will do CT chest today afternoon -Labs and imaging reviewed and pertinent findings incorporated in assessment and plan Medications: Reviewed: Yes Vitals/I&O/Wt Last Vital Signs Temp 98.0 F 01/19/21 04:00 Pulse 90 01/19/21 09:33 Resp 16 01/19/21 09:33 BP 122/91 01/19/21 06:00 Pulse Ox 94 01/19/21 09:33 01/18/21 01/19/21 01/19/21 22:59 06:59 14:59 Intake Total 1140 / 1820 600 / 2420 50 / 50 Output Total 1969 / 2420 1315 / 3735 250 / 250 Balance -830 / -600 -715 / -1315 -200 / -200 Weight last 48 hrs Weight 330 lb 12.8 oz Physical Exam Narrative: EXAM NARRATIVE: General: alert, NAD HEENT: conj clear, EOMI, PERRL, mmm, Neck: supple, no meningismus Heme: no cervical LAP Pulmonary: Improving breath sounds on right lower lobe, 14 [place] chest tube placed on right posterior lateral chest wall and dressing applied Cardiovascular: rrr, nl s1s2, no mrg Abdomen: soft, nt, nd, no r/g, bs+ Extremities: pulses +, 1+ pitting pedal edema, no c/c : no CVA tenderness Skin: intact, no rash MSK: no back or neck pain Neurologic: grossly intact Data : 01/19/21 09:14 01/19/21 09:14 Other Labs: Laboratory Results WBC 19.8 10^3/uL (4.0-10.0) H 01/19/21 09:14 RBC 5.08 10^6/uL (4.1-5.3) 01/19/21 09:14 Hgb 14.0 g/dL (11.7-16.6) 01/19/21 09:14 Hct 43.5 % (42.0-52.0) 01/19/21 09:14 MCV 85.6 fL (80-94) 01/19/21 09:14 MCH 27.6 pg (28.0-34.0) L 01/19/21 09:14 MCHC 32.2 g/dL (30.0-36.0) 01/19/21 09:14 RDW 13.8 % (12.1-15.1) 01/19/21 09:14 Plt Count 394 10^3/cmm (130-400) 01/19/21 09:14 MPV 10.4 fL (7.4-10.4) 01/19/21 09:14 Neut % (Auto) 79.2 % 01/19/21 09:14 Lymph % (Auto) 8.8 % 01/19/21 09:14 [place] % (Auto) 9.3 % 01/19/21 09:14 Eos % (Auto) 0.7 % 01/19/21 09:14 Baso % (Auto) 0.5 % 01/19/21 09:14 Neut # (Auto) 15.66 10^3/uL (1.8-7.7) H 01/19/21 09:14 Lymph # (Auto) 1.8 10^3/uL (0.8-4.8) 01/19/21 09:14 [place] # (Auto) 1.9 10^3/uL (0.2-0.9) H 01/19/21 09:14 Eos # (Auto) 0.1 10^3/uL (0.0-0.8) 01/19/21 09:14 Baso # (Auto) 0.1 10^3/uL (0.0-0.1) 01/19/21 09:14 Nucleated RBC % (auto) 0 % 01/19/21 09:14 Total Counted Cancelled 01/17/21 16:40 Nucleated RBCs # 0.0 /100WBC 01/19/21 09:14 Differential Comment As[employer]or 01/17/21 16:14 D-Dimer 3.64 ug/mIFEU (0-0.59) H 01/16/21 00:12 Sodium 129 mmol/L (136-145) L 01/19/21 09:14 Potassium 3.1 mmol/L (3.5-5.1) L 01/19/21 09:14 Chloride 90 mmol/L (98-107) L 01/19/21 09:14 Carbon Dioxide 28 mmol/L (22-29) 01/19/21 09:14 Anion Gap 14.1 (5-19) 01/19/21 09:14 BUN 17 mg/dL (8-23) 01/19/21 09:14 Creatinine 0.5 mg/dL (0.7-1.2) L 01/19/21 09:14 GFR Calculation 168.5 mL/min (90-130) H 01/19/21 09:14 Glucose 101 mg/dL (65-115) 01/19/21 09:14 Calculated Osmolality 270 mOsm/kg (285-295) L 01/19/21 09:14 Lactic Acid 3.2 mmol/L (0.5-2.2) H 01/16/21 02:18 Calcium 9.0 mg/dL (8.5-10.5) 01/19/21 09:14 Magnesium 2.1 mg/dL (1.7-2.3) 01/17/21 03:23 Total Bilirubin 0.8 mg/dL (0.15-1.2) 01/19/21 09:14 AST 22 U/L (0-40) 01/19/21 09:14 ALT 15 U/L (0-41) 01/19/21 09:14 Alkaline Phosphatase 110 IU/L (40-130) 01/19/21 09:14 Lactate Dehydrogenase 148 U/L (135-225) 01/16/21 00:12 Troponin T Baseline 13 ng/L (0-15) 01/16/21 00:12 NT-Pro-B Natriuret Pep 333 pg/mL (0-125) H 01/19/21 09:14 Total Protein 6.8 g/dL (6.6-8.7) 01/19/21 09:14 Albumin 2.3 g/dL (3.5-5.2) L 01/19/21 09:14 Globulin 4.5 g/dL (1.3-4.6) 01/19/21 09:14 Procalcitonin 1.35 ng/mL (0-0.5) H 01/16/21 00:12 Fluid Color Pale yellow 01/17/21 16:14 Fluid Appearance Cloudy 01/17/21 16:14 Fluid Specific Grav 1.010 01/17/21 16:14 Fluid pH 8.0 01/17/21 16:14 Fluid WBC 04045 /uL 01/17/21 16:14 Fluid RBC 3.000 10^3/uL 01/17/21 16:14 Fluid Tot Cell Count As[employer]or 01/17/21 16:14 Fld Polynuclear WBCs # 23.565 01/17/21 16:14 Fld Polynuclear WBCs % 83.900 % 01/17/21 16:14 Fl Mononucl WBCs #(Auto) 4.507 01/17/21 16:14 Fl Mononuclear % Auto 16.100 % 01/17/21 16:14 Fluid Glucose 2.0 mg/dL 01/17/21 16:14 Fluid Albumin 2.3 g/dL 01/17/21 16:14 Fluid LDH 2354 U/L 01/17/21 16:14 Fluid Amylase 18 U/L 01/17/21 16:14 Fluid Alk Phosphatase 5 IU/L 01/17/21 16:14 Fluid Cholesterol 74 mg/dL (0-200) 01/17/21 16:14 Fluid Triglycerides 52 mg/dL (0-150) 01/17/21 16:14 Fluid Uric Acid 4 mg/dL 01/17/21 16:14 Pleural Color Cancelled 01/17/21 16:40 Pleural Appearance Cancelled 01/17/21 16:40 Pleural WBC Cancelled 01/17/21 16:40 Pleural RBC Cancelled 01/17/21 16:40 Pleural Other Cells Cancelled 01/17/21 16:40 Pleural Polynuclear % Cancelled 01/17/21 16:40 Pleural Mononuclear % Cancelled 01/17/21 16:40 Pleural Total Protein 4.7 g/dL 01/17/21 16:14 Vancomycin Trough 18.8 ug/mL (10-15) H 01/18/21 18:48 SARS-CoV-2 Ag (Rapid) Negative (Negative) 01/16/21 02:31 Path Cons w/Slide Cancelled 01/17/21 16:40 Impressions Chest CTA 01/16/21 03:01 IMPRESSION: 1. There is no evidence for pulmonary emboli. 2. There is a loculated pleural fluid collection seen on the right containing some mottled gas densities, findings worrisome for empyema. 3. Patchy opacities, consolidation and masslike infiltrates are seen in the right lower lobe superimposed over the loculated pleural fluid collection. Aspiration pneumonia with anaerobic organisms could have this appearance. Underlying bronchogenic mass cannot be excluded as well. Radiation Dose CTDIVOL = (mGy): DLP = 1226.2 (mGy-cm) Chest X-Ray 01/19/21 04:00 Impression: 1. Insertion of small right basilar chest tube with no pneumothorax. 2. Increase in right upper lobe opacity. 3. Cardiomegaly. Micro: Microbiology 01/17/21 16:14 Fungal Smear - Preliminary Pleural Fluid 01/17/21 16:14 Mycobacterial Smear - Preliminary Body Fluids - Pleura,Rt Lung 01/16/21 17:00 Fungal Smear - Preliminary Pleural Fluid 01/16/21 17:00 Mycobacterial Smear - Preliminary Bronchial Brushings 01/17/21 16:14 Gram Stain - Final Pleural Fluid Anaerobic Culture - Preliminary Body Fluid Culture - Preliminary 01/16/21 17:00 Gram Stain - Final Lung Right Lower Lobe Bronchoalveolar Lavage Culture - Final A&P Assessment and plan (1) Sepsis: Status: Acute Qualifiers: Sepsis type: sepsis due to unspecified organism Sepsis acute organ dysfunction status: unspecified Qualified Code(s): A41.9 - Sepsis, unspecified organism (2) Mass of right lung: Status: Acute (3) CHF exacerbation: Status: Acute Qualifiers: Heart failure type: unspecified Qualified Code(s): I50.9 - Heart failure, unspecified (4) CAP (community acquired pneumonia): Status: Acute Qualifiers: Laterality: right Lung location: lower lobe of lung Qualified Code(s): J18.9 - Pneumonia, unspecified organism (5) Loculated pleural effusion: Status: Acute (6) COPD (chronic obstructive pulmonary disease): Status: Acute Qualifiers: COPD type: unspecified COPD Qualified Code(s): J44.9 - Chronic obstructive pulmonary disease, unspecified (7) Smoker: Status: Acute (8) Hypokalemia: Status: Acute #Sepsis secondary to RLL pneumonia and possible post obstructive pneumonia #Loculated Rt pleural effusion with moderate gas densities on CT suspicious for empyema #Superior segment of RLL showing mass like infiltrate 3.9 x 4.9 x 4.5 cm #Chronic smoker 2 pack/day for several years #H/O underlying COPD - mMRC 2 no reported exacerbations prior to this hospitalization - not in exacerbation; -need PFTs as outpatient #History of CHF on Lasix 40 mg twice daily #Hypokalemia-likely due to recent increase in Lasix dose # Anion gap metabolic acidosis likely due to lactic acidosis due to sepsis -Afebrile since admission, improving leukocytosis, high procalcitonin 1.35; - Saturating 94% on 2 L nasal cannula -Endorses history of vomiting and possible aspiration prior to admission -Currently empirically on vancomycin, Levaquin and Zosyn -Blood cultures pending negative to date, urine bacterial antigens negative, Legionella antigen negative, MRSA nares nondetected -S/p bronchoscopy 01/16/2021-showed edematous mucosa in RUL AND RLL and near complete occlusion of superior segment of RLL, copious mucus secretions aspirated and BAL sent for cytology, bacterial cultures, AFB and fungal cultures -preliminary results negative -Bedside ultrasound today showed loculated pleural effusion and posterior lateral chest wall--14 Citizen [place] pigtail placed on 01/17/2021 posteriorly and connected to continuous suction-400 cc turbid straw-colored pleural fluid drained; small air leak noted that improved after some time -Pleural fluid sample sent for microbiology cultures, fungal cultures, AFB and cell count and pleural fluid analysis - Neutrophilic predominant exudative pleural effusion with significantly low glucose-parapneumonic effusion likely empyema--preliminary results negative -Instilled 4 doses TPA 10 mg yesterday and drained 1350 cc of fluid; -We will repeat CT chest and if mass is present-we will IR to do a biopsy and if loculated fluid is present will refer to VATS -Chest x ray today: Insertion of small right basilar chest tube with no pneumothorax. Increase in right upper lobe opacity. - BNP 800, echo 01/16/2021 normal LVEF 64%. No significant wall motion abnormalities. No filling defects. Some evidence of grade 1 LV diastolic dysfunction. Mild to moderate aortic insufficiency., continue Lasix to 40 mg twice daily and monitor electroytes and Input and out put.-- Potassium 3.1 -already received KCl 40 M EQ p.o. supplement KCl 40 M EQ IVPB - COPD Not in exacerbation - duoneb q6r hr prn wheezing or shortness of breath - Counselled to quit smoking and he agreed to quit - Counselled to stay uptodate with flu and pneumonia vaccination in future - Need PFTS/6MWT as out patient - Patient needs LAMA/LABA/ICS (Trelegy 1 puff daily or Breztri 2 puffs bid) upon discharge We will continue clinical monitoring and cover with broad-spectrum antibiotics and will repeat CT chest afternoon-if loculations persist-patient needs VATS Medical condition, labs and investigations and plan of management explained in detail to the patient. recommendations conveyed to hospitalist and RN covering the patient Attestations Medical Necessity Statement*: Acute hypoxic respiratory failure secondary to sepsis due to empyema and loculated right pleural effusion with atelectasis and mediastinal shift to the right, possible endobronchial lesions in patient with underlying COPD and CHF needs close monitoring Critical Care Time: The high probability of a clinically significant, sudden or life threatening deterioration of the patient's [respiratory, cardiac, infectious] system(s) required my full and direct attention, intervention and personal management. The critical care time is as shown. This time is in addition to time spent performing any reported procedures but includes the following: [x] Data and vital sign review and interpretation [x] Patient assessment, examination and intervention [x] Documentation [x] Medication orders and management Critical Care Time (min): 45 Coding Level of Care Code Established Pt Acute Pulp And Paper Tester for Chg Fwd Patient Type Established History Comprehensive Exam Comprehensive Medical Decision Making High Complexity Diagnoses Sepsis A41.9 Sepsis type: sepsis due to unspecified organism Sepsis acute organ dysfunction status: unspecified Mass of right lung R91.8 CHF exacerbation I50.9 Heart failure type: unspecified CAP (community acquired pneumonia) J18.9 Laterality: right Lung location: lower lobe of lung Loculated pleural effusion J90 COPD (chronic obstructive pulmonary disease) J44.9 COPD type: unspecified COPD Smoker F17.200 Hypokalemia E87.6 Time Spent (min) 45
--- NOTE | 2021-01-19 14:00 | CT_ITS ---
WS: [id number] CT CHEST TECHNIQUE: Noncontrast CT of the chest with coronal and sagittal reformatted images. CLINICAL INFORMATION: Shortness of breath COMPARISON: CT January 16, 2021 DLP: 1074.[address] scans at [facility] use at least one of these dose optimization techniques: automat ed exposure control; mA and/or kV adjustment per patient size (includes targeted exams where dose is matched to clinical indication); or iterative reconstruction. FINDINGS: Improved right pleural effusion with interval placement of right chest tube. Residual small pleural e ffusion with scattered locules of air in the pleural space. Loculated pleural fluid along the right f issure unchanged from previous. Improved aeration of the right lower lobe. Increased likely pleural effusion the right upper lobe laterally measuring 12.2 x 6.9 cm with air-flu id levels. Persistent dense wedge-shaped opacity extending to the right hilum, right upper lobe inferiorly along the fissure. Associated bronchovascular thickening. This is slightly spiculated and Neoplasm is not excluded. This measures approximately 3.1 x 2.9 x 4.5cm. Narrowing of the adjacent posterior right up per lobe bronchus. Residual subsegmental atelectasis right lower lobe. Left lung is well aerated. Aortic calcification. Coronary calcification. Additional loculated fluid a long the right middle lobe anteriorly. Adrenal glands are normal. Fatty atrophy of the pancreas. Postoperative changes GE junction. Hypertro phic changes thoracic spine. CT/CT chest wo con [id number] IMPRESSION: 1. Improved right lower lobe pleural effusion with insertion of right chest tu be. Improved aeration right lower lobe with a few locules of air in the pleural space. 2. New/progressed right upper lobe and right lateral pleural fluid collection with a few air-fluid levels measuring 12.2 x 7.0 cm. 3. Small amount of fluid along the right fissure and right middle lobe anterio rly. 4. Bronchovascular thickening along the right hilum with persistent dense wedg e-shaped opacity with slight spiculation. This measures 4.5 x 2.9 x 3.1 cm with bronchial obstruction. This is unchanged from previous and neoplasm not exclud ed. This can be further evaluated with bronchoscopy 5. No other interval changes.
[2021-01-19] MEDS: LORazepam 2 mg/mL INJ 1 mL 1 MG IVP (19:59)
--- NOTE | 2021-01-19 20:41 | XRR_ITS ---
PROCEDURE INFORMATION: Exam: XR Chest Exam date and time: 01/19/2021 8:41 PM Age: 60 years old Clinical indication: Device placement; Chest tube; Additional info: Chest tube placement TECHNIQUE: Imaging protocol: XR of the chest. Views: 1 view. COMPARISON: CT chest wo con [id number] 01/19/2021 2:09 PM FINDINGS: Tubes, catheters and devices: Right chest tube terminates at the right lung apex corresponding to previously noted loculated pocket of air and pleural fluid on recent CT and radiographs. Lungs: Unremarkable. No consolidation. Pleural spaces: Please see tubes, catheters, and devices section findings Heart/Mediastinum: Prominence of the right cardiac silhouette corresponds to loculated fluid along the medial right lung in this region. Bones/joints: Unremarkable. XR/XR chest 1V portable [id number] IMPRESSION: Right chest tube insertion terminating at the right lung apex.
--- NOTE | 2021-01-19 20:46 | PM.ACPR ---
Procedure/Consent Time out: Time Out Performed: Yes Consent: Consent for Procedure: Consent obtained from patient, Risks & Benefits reviewed and Agrees to proceed with procedure Procedure Narrative: Pulmonary & Critical Care Medicine Procedure -right anterior 14 Vietnamese chest tube Procedure: Insertion of right anterior 14 [place] pigtail/chest tube Indication: Loculated pleural effusion Director Of Business Development(s): Aman Davis MD assited by Dr. Man Consent: Signed and placed in chart Anesthesia: 25 cc 1% lidocaine without epinephrine Description: Right loculated pleural effusion was localized using ultrasound guidance and the site was marked accordingly. After chlorhexidine skin prep, area was draped in a sterile manner. 1% lidocaine was used for local anesthesia. 14 Vietnamese pigtail thoracentesis catheter was then inserted into the pleural space using Seldinger technique with aspiration of 80 cc of pleural fluid. Appearance was straw-colored. Ultrasound guidance used: Yes. EBL: 5-10 cc Complication: None. Patient tolerated the procedure well PCXR: pending Acute Procedures Epistaxis Control: Time out performed: Yes
[2021-01-19] MEDS: lidocaine 1% INJ 20 mL SUBCUT (20:52)
--- NOTE | 2021-01-19 22:06 | PC.NURSE ---
2030 - 14F pigtail chest tube placed to Right anterior chest per Dr. Davis. Tolerated well. Placed to Dry suction drainage chamber at -20cm seal. Yellow colored drainage noted. 2114 - [place] placed to right posterior chest tube pigtail as ordered.
[2021-01-19] MEDS: amitriptyline 25 mg Tablet 100 MG PO (22:11)
--- NOTE | 2021-01-19 22:16 | PC.NURSE ---
Unclamped Right posterior chest tube and allowed to drain as ordered.
[2021-01-20] VITALS (15 sets, daily range): BP systolic 122–174; BP diastolic 67–104; PULSE 75–116; RESP 16–30; TEMP 36.1–36.9; O2SAT 91–97
[2021-01-20 02:51] LABS: Basophils # 0.1 10^3/uL (0.0-0.1); Basophils % 0.4 %; Eosinophils # 0.2 10^3/uL (0.0-0.8); Eosinophils % 1.1 %; Hematocrit 43.2 % (42.0-52.0); Hemoglobin 14.1 g/dL (11.7-16.6); Lymphocytes # 1.7 10^3/uL (0.8-4.8); Lymphocytes % 9.5 %; Mean Corpuscular HGB Conc 32.6 g/dL (30.0-36.0); Mean Corpuscular Hemoglobin 27.6 pg (28.0-34.0); Mean Corpuscular Volume 84.7 fL (80-94); Mean Platelet Volume 9.5 fL (7.4-10.4); Monocytes # 1.9 10^3/uL (0.2-0.9); Monocytes % 10.5 %; Neutrophils # 13.83 10^3/uL (1.8-7.7); Neutrophils % 76.5 %; Nucleated Red Blood Cells % 0 %; Platelet Count 402 10^3/cmm (130-400); Red Cell Distribution Width 13.7 % (12.1-15.1); White Blood Count 18.1 10^3/uL (4.0-10.0)
[2021-01-20 03:06] LABS: Alanine Aminotransferase 14 U/L (0-41); Albumin Level 2.4 g/dL (3.5-5.2); Alkaline Phosphatase 115 IU/L (40-130); Anion Gap 13.9 (5-19); Aspartate Amino Transferase 18 U/L (0-40); Blood Urea Nitrogen 16 mg/dL (8-23); Calcium 9.3 mg/dL (8.5-10.5); Carbon Dioxide 30 mmol/L (22-29); Chloride 93 mmol/L (98-107); Globulin 4.3 g/dL (1.3-4.6); Glomerular Filtration Rate 136.5 mL/min (90-130); Glucose 111 mg/dL (65-115); Osmolality Calculated 280 mOsm/kg (285-295); Sodium 134 mmol/L (136-145); Total Bilirubin 0.7 mg/dL (0.15-1.2); Total Protein 6.7 g/dL (6.6-8.7)
[2021-01-20 03:08] LABS: Potassium 2.9 mmol/L (3.5-5.1)
[2021-01-20] MEDS: vancomycin 1,500 MG/300 ML PIGGYBACK 200 MG IV ×2 (03:54→12:25)
[2021-01-20] MEDS: acetaminophen 500 mg Tablet PO ×2 (04:03→09:14)
[2021-01-20] MEDS: potassium chloride ER 20 mEq Tablet 40 MEQ PO (04:10)
[2021-01-20] MEDS: lidocaine 1% 5 ML in potassium chloride premix 100 ML 25 ML IV (04:12)
[2021-01-20] MEDS: piperacillin-tazobactam 3.375 GM in sodium chloride 0.9% (plus) 50 ML IV ×3 (05:34→21:53)
[2021-01-20] MEDS: levoFLOXacin 750 mg Tablet PO (05:39)
--- NOTE | 2021-01-20 07:13 | PC.NURSE ---
report called to 2nd floor for transfer to floor room
[2021-01-20] MEDS: sennosides-docusate Tablet 1 TAB PO (08:09)
[2021-01-20] MEDS: metoprolol tartrate 25 mg Tablet PO ×2 (08:09→21:48)
[2021-01-20] MEDS: FUROsemide 40 mg Tablet PO ×2 (08:10→17:02)
[2021-01-20] MEDS: nicotine 21 mg Patch 1 PATCH TRANSDERMA (08:16)
--- NOTE | 2021-01-20 09:26 | PM.PN ---
Subjective Subjective: Interval history: - Patient seen at bedside today morning -Laying comfortably on bed on 2 L nasal cannula -Denied any complaints -Right posterior chest tube drained serosanguineous fluid 350 cc overnight after TPA -Right anterior chest tube drained 200 cc turbid straw-colored fluid overnight after placement-we will give TPA into this chest tube -All cultures from right lower lobe BAL and initial pleural fluid were negative so far and cytology negative for malignancy from BAL and pleural fluid -All the labs and imaging reviewed and pertinent findings incorporated in assessment and plan Medications: Reviewed: Yes Vitals/I&O/Wt Last Vital Signs Temp 97.9 F 01/20/21 08:23 Pulse 82 01/20/21 08:23 Resp 16 01/20/21 08:23 BP 122/67 01/20/21 08:23 Pulse Ox 91 01/20/21 08:23 01/19/21 01/20/21 01/20/21 22:59 06:59 14:59 Intake Total 680 / 1230 1150 / 2380 Output Total 775 / 1275 / 5 225 / 225 Balance -95 / -45 400 / 355 -225 / -225 Weight last 48 hrs Weight 333 lb 14.4 oz Weight 328 lb 14.4 oz Physical Exam Narrative: EXAM NARRATIVE: General: alert, NAD HEENT: conj clear, EOMI, PERRL, mmm, Neck: supple, no meningismus Heme: no cervical LAP Pulmonary: Improving breath sounds on right lower lobe, 14 Lithuanian chest tube placed on right posterior lateral chest wall and dressing applied, another 14 Lithuanian chest tube is seen right upper anterior chest wall and dressing applied Cardiovascular: rrr, nl s1s2, no mrg Abdomen: soft, nt, nd, no r/g, bs+ Extremities: pulses +, 1+ pitting pedal edema, no c/c : no CVA tenderness Skin: intact, no rash MSK: no back or neck pain Neurologic: grossly intact Data : 01/20/21 02:40 01/20/21 02:40 Other Labs: Laboratory Results WBC 18.1 10^3/uL (4.0-10.0) H 01/20/21 02:40 RBC 5.10 10^6/uL (4.1-5.3) 01/20/21 02:40 Hgb 14.1 g/dL (11.7-16.6) 01/20/21 02:40 Hct 43.2 % (42.0-52.0) 01/20/21 02:40 MCV 84.7 fL (80-94) 01/20/21 02:40 MCH 27.6 pg (28.0-34.0) L 01/20/21 02:40 MCHC 32.6 g/dL (30.0-36.0) 01/20/21 02:40 RDW 13.7 % (12.1-15.1) 01/20/21 02:40 Plt Count 402 10^3/cmm (130-400) H 01/20/21 02:40 MPV 9.5 fL (7.4-10.4) 01/20/21 02:40 Neut % (Auto) 76.5 % 01/20/21 02:40 Lymph % (Auto) 9.5 % 01/20/21 02:40 Christian % (Auto) 10.5 % 01/20/21 02:40 Eos % (Auto) 1.1 % 01/20/21 02:40 Baso % (Auto) 0.4 % 01/20/21 02:40 Neut # (Auto) 13.83 10^3/uL (1.8-7.7) H 01/20/21 02:40 Lymph # (Auto) 1.7 10^3/uL (0.8-4.8) 01/20/21 02:40 Christian # (Auto) 1.9 10^3/uL (0.2-0.9) H 01/20/21 02:40 Eos # (Auto) 0.2 10^3/uL (0.0-0.8) 01/20/21 02:40 Baso # (Auto) 0.1 10^3/uL (0.0-0.1) 01/20/21 02:40 Nucleated RBC % (auto) 0 % 01/20/21 02:40 Total Counted Cancelled 01/17/21 16:40 Nucleated RBCs # 0.0 /100WBC 01/20/21 02:40 Differential Comment Mill Operator Helper 01/17/21 16:14 D-Dimer 3.64 ug/mIFEU (0-0.59) H 01/16/21 00:12 Sodium 134 mmol/L (136-145) L 01/20/21 02:40 Potassium 2.9 mmol/L (3.5-5.1) L 01/20/21 02:40 Chloride 93 mmol/L (98-107) L 01/20/21 02:40 Carbon Dioxide 30 mmol/L (22-29) H 01/20/21 02:40 Anion Gap 13.9 (5-19) 01/20/21 02:40 BUN 16 mg/dL (8-23) 01/20/21 02:40 Creatinine 0.6 mg/dL (0.7-1.2) L 01/20/21 02:40 GFR Calculation 136.5 mL/min (90-130) H 01/20/21 02:40 Glucose 111 mg/dL (65-115) 01/20/21 02:40 Calculated Osmolality 280 mOsm/kg (285-295) L 01/20/21 02:40 Lactic Acid 3.2 mmol/L (0.5-2.2) H 01/16/21 02:18 Calcium 9.3 mg/dL (8.5-10.5) 01/20/21 02:40 Magnesium 2.1 mg/dL (1.7-2.3) 01/17/21 03:23 Total Bilirubin 0.7 mg/dL (0.15-1.2) 01/20/21 02:40 AST 18 U/L (0-40) 01/20/21 02:40 ALT 14 U/L (0-41) 01/20/21 02:40 Alkaline Phosphatase 115 IU/L (40-130) 01/20/21 02:40 Lactate Dehydrogenase 148 U/L (135-225) 01/16/21 00:12 Troponin T Baseline 13 ng/L (0-15) 01/16/21 00:12 NT-Pro-B Natriuret Pep 333 pg/mL (0-125) H 01/19/21 09:14 Total Protein 6.7 g/dL (6.6-8.7) 01/20/21 02:40 Albumin 2.4 g/dL (3.5-5.2) L 01/20/21 02:40 Globulin 4.3 g/dL (1.3-4.6) 01/20/21 02:40 Procalcitonin 1.35 ng/mL (0-0.5) H 01/16/21 00:12 Fluid Color Pale yellow 01/17/21 16:14 Fluid Appearance Cloudy 01/17/21 16:14 Fluid Specific Grav 1.010 01/17/21 16:14 Fluid pH 8.0 01/17/21 16:14 Fluid WBC 24472 /uL 01/17/21 16:14 Fluid RBC 3.000 10^3/uL 01/17/21 16:14 Fluid Tot Cell Count Mill Operator Helper 01/17/21 16:14 Fld Polynuclear WBCs # 23.565 01/17/21 16:14 Fld Polynuclear WBCs % 83.900 % 01/17/21 16:14 Fl Mononucl WBCs #(Auto) 4.507 01/17/21 16:14 Fl Mononuclear % Auto 16.100 % 01/17/21 16:14 Fluid Glucose 2.0 mg/dL 01/17/21 16:14 Fluid Albumin 2.3 g/dL 01/17/21 16:14 Fluid LDH 2354 U/L 01/17/21 16:14 Fluid Amylase 18 U/L 01/17/21 16:14 Fluid Alk Phosphatase 5 IU/L 01/17/21 16:14 Fluid Cholesterol 74 mg/dL (0-200) 01/17/21 16:14 Fluid Triglycerides 52 mg/dL (0-150) 01/17/21 16:14 Fluid Uric Acid 4 mg/dL 01/17/21 16:14 Pleural Color Cancelled 01/17/21 16:40 Pleural Appearance Cancelled 01/17/21 16:40 Pleural WBC Cancelled 01/17/21 16:40 Pleural RBC Cancelled 01/17/21 16:40 Pleural Other Cells Cancelled 01/17/21 16:40 Pleural Polynuclear % Cancelled 01/17/21 16:40 Pleural Mononuclear % Cancelled 01/17/21 16:40 Pleural Total Protein 4.7 g/dL 01/17/21 16:14 Vancomycin Trough 19.0 ug/mL (10-15) H 01/20/21 02:40 SARS-CoV-2 Ag (Rapid) Negative (Negative) 01/16/21 02:31 Path Cons w/Slide Cancelled 01/17/21 16:40 Impressions Chest CTA 01/16/21 03:01 IMPRESSION: 1. There is no evidence for pulmonary emboli. 2. There is a loculated pleural fluid collection seen on the right containing some mottled gas densities, findings worrisome for empyema. 3. Patchy opacities, consolidation and masslike infiltrates are seen in the right lower lobe superimposed over the loculated pleural fluid collection. Aspiration pneumonia with anaerobic organisms could have this appearance. Underlying bronchogenic mass cannot be excluded as well. Radiation Dose CTDIVOL = (mGy): DLP = 1226.2 (mGy-cm) Chest CT 01/19/21 14:00 IMPRESSION: 1. Improved right lower lobe pleural effusion with insertion of right chest tube. Improved aeration right lower lobe with a few locules of air in the pleural space. 2. New/progressed right upper lobe and right lateral pleural fluid collection with a few air-fluid levels measuring 12.2 x 7.0 cm. 3. Small amount of fluid along the right fissure and right middle lobe anteriorly. 4. Bronchovascular thickening along the right hilum with persistent dense wedge-shaped opacity with slight spiculation. This measures 4.5 x 2.9 x 3.1 cm with bronchial obstruction. This is unchanged from previous and neoplasm not excluded. This can be further evaluated with bronchoscopy 5. No other interval changes. Chest X-Ray 01/19/21 20:41 IMPRESSION: Right chest tube insertion terminating at the right lung apex. Micro: Microbiology 01/17/21 16:14 Fungal Smear - Preliminary Pleural Fluid 01/17/21 16:14 Mycobacterial Smear - Preliminary Body Fluids - Pleura,Rt Lung 01/16/21 17:00 Fungal Smear - Preliminary Pleural Fluid 01/16/21 17:00 Mycobacterial Smear - Preliminary Bronchial Brushings 01/17/21 16:14 Gram Stain - Final Pleural Fluid Anaerobic Culture - Preliminary Body Fluid Culture - Preliminary 01/16/21 17:00 Gram Stain - Final Lung Right Lower Lobe Bronchoalveolar Lavage Culture - Final A&P Assessment and plan (1) Sepsis: Status: Acute Qualifiers: Sepsis acute organ dysfunction status: unspecified Sepsis type: sepsis due to unspecified organism Qualified Code(s): A41.9 - Sepsis, unspecified organism (2) Mass of right lung: Status: Acute (3) CHF exacerbation: Status: Acute Qualifiers: Heart failure type: unspecified Qualified Code(s): I50.9 - Heart failure, unspecified (4) CAP (community acquired pneumonia): Status: Acute Qualifiers: Laterality: right Lung location: lower lobe of lung Qualified Code(s): J18.9 - Pneumonia, unspecified organism (5) Loculated pleural effusion: Status: Acute (6) COPD (chronic obstructive pulmonary disease): Status: Acute Qualifiers: COPD type: unspecified COPD Qualified Code(s): J44.9 - Chronic obstructive pulmonary disease, unspecified (7) Smoker: Status: Acute (8) Hypokalemia: Status: Acute #Sepsis secondary to RLL pneumonia and possible post obstructive pneumonia #Loculated Rt pleural effusion with moderate gas densities on CT suspicious for empyema #Superior segment of RLL showing mass like infiltrate 3.9 x 4.9 x 4.5 cm #Chronic smoker 2 pack/day for several years #H/O underlying COPD - m[facility] 2 no reported exacerbations prior to this hospitalization - not in exacerbation; -need PFTs as outpatient #History of CHF on Lasix 40 mg twice daily #Hypokalemia-likely due to recent increase in Lasix dose # Anion gap metabolic acidosis likely due to lactic acidosis due to sepsis -Afebrile since admission, improving leukocytosis, high procalcitonin 1.35; - Saturating 94% on 2 L nasal cannula -Endorses history of vomiting and possible aspiration prior to admission -Currently empirically on vancomycin, Levaquin and Zosyn -Blood cultures pending negative to date, urine bacterial antigens negative, Legionella antigen negative, MRSA nares nondetected -S/p bronchoscopy 01/16/2021-showed edematous mucosa in RUL AND RLL and near complete occlusion of superior segment of RLL, copious mucus secretions aspirated and BAL sent for cytology, bacterial cultures, AFB and fungal cultures -cultures negative so far -Bedside ultrasound today showed loculated pleural effusion and posterior lateral chest wall--14 Lithuanian pigtail placed on 01/17/2021 posteriorly and connected to continuous suction-400 cc turbid straw-colored pleural fluid drained; no air leak noted -Pleural fluid sample sent for microbiology cultures, fungal cultures, AFB and cell count and pleural fluid analysis - Neutrophilic predominant exudative pleural effusion with significantly low glucose-parapneumonic effusion likely empyema--culture none results negative so far -Instilled 5 doses TPA 10 mg over last 3 days and drained total 1800 cc of fluid; -Repeat CT showed improved right lower lobe pleural effusion with insertion of right chest tube and improved aeration of right lower lobe with few locules of air in the pleural space. New/progressed right upper lobe and right lateral pleural fluid collection with few air-fluid levels measuring 12.2 x 7 cm and bronchovascular thickening along the right hilum with persistent dense wedge-shaped opacity with slight spiculation this measures 4.5 x 2.9 x 3.1 cm with bronchial obstruction. -Inserted right upper anterior chest tube into new loculated fluid collection on 01/19/2021-drained turbid straw-colored 200 cc fluid. Plan is to give TPA to see if we can drain more fluid - Overall repeat CT chest showed improvement in rigth lower lung effusions and Right upper lung had 1 big solitary pocket which has a new chest tube; plan is to give 3 doses of TPA follow up with daily chest x rays for improvement; if imaging shows improvement will take chest tubes out and discharge with prolonged course of antibiotics in consultation with ID. - BNP 800, echo 01/16/2021 normal LVEF 64%. No significant wall motion abnormalities. No filling defects. Some evidence of grade 1 LV diastolic dysfunction. Mild to moderate aortic insufficiency., continue Lasix to 40 mg twice daily and monitor electroytes and Input and out put.-- Potassium 2.9 - supplement KCl 40 M EQ IVPB x 2 doses - COPD Not in exacerbation - duoneb q6r hr prn wheezing or shortness of breath - Counselled to quit smoking and he agreed to quit - Counselled to stay uptodate with flu and pneumonia vaccination in future - Need PFTS/6MWT as out patient - Patient needs LAMA/LABA/ICS (Trelegy 1 puff daily or Breztri 2 puffs bid) upon discharge medical condition, labs and investigations and plan of management explained in detail to the patient. recommendations conveyed to hospitalist and RN covering the patient Attestations Medical Necessity Statement*: Acute hypoxic respiratory failure secondary to sepsis due to empyema and loculated right upper anterior and posterior pleural effusion with atelectasis and mediastinal shift to the right, possible endobronchial lesions in patient with underlying COPD and CHF needs close monitoring Critical Care Time: T Critical Care Time (min): 45 Coding Level of Care Code Established Pt Acute Lead Software Test Engineer for Chg Fwd Patient Type Established History Comprehensive Exam Comprehensive Medical Decision Making Moderate Complexity Diagnoses Sepsis A41.9 Sepsis acute organ dysfunction status: unspecified Sepsis type: sepsis due to unspecified organism Mass of right lung R91.8 CHF exacerbation I50.9 Heart failure type: unspecified CAP (community acquired pneumonia) J18.9 Laterality: right Lung location: lower lobe of lung Loculated pleural effusion J90 COPD (chronic obstructive pulmonary disease) J44.9 COPD type: unspecified COPD Smoker F17.200 Hypokalemia E87.6 Time Spent (min) 45
[2021-01-20 12:45] LABS: Glucose Point of Care 132 mg/dL (70-110)
--- NOTE | 2021-01-20 18:30 | P.PN_ITS ---
Subjective Subjective: Interval history: CT yesterday with loculated effusion in RUl as well s/p placement of additional chest tube. Hemodynamically stable, afbebrile, more edematous today, yeast on BAL cx, otherwise respiratory hillary Medications: Reviewed: Yes Vitals/I&O/Wt Last Vital Signs Temp 97.8 F 01/20/21 17:58 Pulse 88 01/20/21 17:58 Resp 16 01/20/21 17:58 BP 174/80 01/20/21 17:58 Pulse Ox 94 01/20/21 17:58 01/20/21 01/20/21 01/20/21 06:59 14:59 22:59 Intake Total 1150 / 2380 385 / 385 Output Total 750 / 5 675 / 675 Balance 400 / 355 -290 / -290 Weight last 48 hrs Weight 151.454 kg Weight 149.187 kg Physical Exam Narrative: EXAM NARRATIVE: GEN: Awake, alert and oriented, no acute distress CVS: S1S2 N RS: Reducd breath sounds RLL Abd: Soft, nt/nd , bs+ DRAGGER: no focal neuro deficits Ext: 1+ pitting edema B/L LE Data : 01/20/21 02:40 01/20/21 02:40 Micro: Microbiology 01/17/21 16:14 Gram Stain - Final Pleural Fluid Anaerobic Culture - Preliminary Body Fluid Culture - Preliminary 01/16/21 17:00 Fungal Smear - Preliminary Pleural Fluid A&P Assessment and plan (1) Sepsis: Status: Acute Qualifiers: Sepsis type: sepsis due to unspecified organism Sepsis acute organ dysfunction status: unspecified Qualified Code(s): A41.9 - Sepsis, unspecified organism (2) Hypokalemia: Status: Acute (3) CHF exacerbation: Status: Acute Qualifiers: Heart failure type: unspecified Qualified Code(s): I50.9 - Heart failure, unspecified (4) CAP (community acquired pneumonia): Status: Acute Qualifiers: Laterality: right Lung location: lower lobe of lung Qualified Code(s): J18.9 - Pneumonia, unspecified organism (5) Mass of right lung: Status: Acute Additional A&P Information Sepsis Likely secondary to pneumonia + complex loculated pleural effusion, cannot exclude post obstructive pneumonia from mass at this time. Patient refuses CT guided biopsy due to anxiety about beeing diagnosed with malignancy CTA ruled out PE ; loculated pleural effusion noted, s/p chest tube placement 01/17, cx data unrevealing thus far 2nd chest tube inserted today in RUL with removal of 200cc fluid Chest tube output currently at 600 cc Prelim pleural fluid analysis with exudative effusion, likely parapneumonic micro data from bronchoscopy and thoracentesis unrevaling thus far except yeast + from BAL, no further charcateritics available. Started on fluconazole 200 mg po daily , suspect related to thrush Superior segment of right lower lobe showing masslike infiltrate 3.9 x 4.9 x 4.5 cm, patient had refused any biopsies during bronchoscopy. continue zosyn, d/c vancomycin and complete levaquin x 5days empirically for now. Monitor vancomycin levels Hypokalemia: Repleted Intermittent A fib: Currently in sinus rhythm, rate controlled Echo requested, however it appears the orders had popped off. Requested again for today. No active chest pain no signs of ACS Diastolic CHF, acute on chronic worsening edema today increase lasix from 40po BID to 40iv BID Cardiac diet Full code DVT prophylaxis Lovenox Attestations Medical Necessity Statement*: chest tube in place, rpt CT on Saturday to monitor for imrpovement, iv diuresis Coding Level of Care Code Acute Information Security Specialist for Chg Fwd Diagnoses Sepsis A41.9 Sepsis type: sepsis due to unspecified organism Sepsis acute organ dysfunction status: unspecified Hypokalemia E87.6 CHF exacerbation I50.9 Heart failure type: unspecified CAP (community acquired pneumonia) J18.9 Laterality: right Lung location: lower lobe of lung Mass of right lung R91.8
--- NOTE | 2021-01-20 19:16 | PC.NURSE ---
Report to Maryellen VALLE at bedside at this time.
[2021-01-20] MEDS: amitriptyline 25 mg Tablet 100 MG PO (21:48)
[2021-01-20] MEDS: ALPRAZolam 0.5 mg Tablet 0.25 MG PO (21:49)
[2021-01-20] MEDS: lactulose oral liq 20 gm/30 mL UDC 15 GM PO (21:51)
[2021-01-21] VITALS (9 sets, daily range): BP systolic 116–186; BP diastolic 74–95; PULSE 67–89; RESP 16–18; TEMP 36.4–36.8; O2SAT 93–99
[2021-01-21] MEDS: FUROsemide 10 mg/mL SDV 4mL 40 MG IVP (04:30)
[2021-01-21] MEDS: levoFLOXacin 750 mg Tablet PO (05:37)
[2021-01-21] MEDS: piperacillin-tazobactam 3.375 GM in sodium chloride 0.9% (plus) 50 ML IV ×2 (05:37→13:12)
[2021-01-21] MEDS: acetaminophen 500 mg Tablet PO ×2 (06:02→16:27)
--- NOTE | 2021-01-21 06:33 | XRR_ITS ---
PROCEDURE INFORMATION: Exam: XR Chest Exam date and time: 01/21/2021 6:33 AM Age: 60 years old Clinical indication: Device placement; Chest tube; Additional info: Small air leak in chest tube TECHNIQUE: Imaging protocol: XR of the chest. Views: 1 view. COMPARISON: 1. CR (CHEST, ) 01/19/2021 9:[address] chest wo con [id number] 01/19/2021 2:09:50 PM FINDINGS: Tubes, catheters and devices: There is a small bore pleural drainage catheter in the inferior posterior right pleural space, unchanged in position. However, there is another tube located more superiorly which appears to have pulled out of pleural space and is folded up in the superficial soft tissue of the lateral right chest wall. Lungs: Nonspecific right basilar airspace disease. Pleural spaces: There is a fluid and gas containing pocket in the superior right hemithorax with a small inferolateral pneumothorax. No left pleural effusion. Heart/Mediastinum: The heart is not enlarged.The mediastinal contours are normal. Bones/joints: No acute osseous abnormality XR/XR chest 1V portable [id number] IMPRESSION: 1. The superior right small bore drainage catheter has pulled out of the pleural space and is folded in the superficial soft tissue of the lateral chest wall. 2. Loculated right hydropneumothorax.
--- NOTE | 2021-01-21 06:38 | PC.NURSE ---
When passing morning meds, this pt was already sitting up on the side of the bed using the urinal. This nurse noticed that the water chamber on the [facility] to the posterior chest was bubbling intermittently with intermittent hissing. Upon further investigation, a small squeak was noted at the tube insertion site. This nurse had Selena, ENROLLMENT MANAGER come and help evaluate the chest tube. Dressing was removed and recovered with zeroform, 4x4 guaze and reinforce with foam tape. This nurse helped pt lay back in bed, bubbling was still noted intermittently but was less than while pt was sitting at edge of bed.
[2021-01-21 06:39] LABS: Basophils # 0.1 10^3/uL (0.0-0.1); Basophils % 0.6 %; Eosinophils # 0.3 10^3/uL (0.0-0.8); Eosinophils % 1.7 %; Hematocrit 42.1 % (42.0-52.0); Hemoglobin 13.5 g/dL (11.7-16.6); Lymphocytes # 2.2 10^3/uL (0.8-4.8); Lymphocytes % 11.9 %; Mean Corpuscular HGB Conc 32.1 g/dL (30.0-36.0); Mean Corpuscular Hemoglobin 27.6 pg (28.0-34.0); Mean Corpuscular Volume 86.1 fL (80-94); Monocytes # 1.9 10^3/uL (0.2-0.9); Monocytes % 10.4 %; Neutrophils # 13.25 10^3/uL (1.8-7.7); Neutrophils % 71.2 %; Nucleated Red Blood Cells % 0 %; Platelet Count 415 10^3/cmm (130-400); Red Blood Count 4.89 10^6/uL (4.1-5.3); Red Cell Distribution Width 13.8 % (12.1-15.1); White Blood Count 18.6 10^3/uL (4.0-10.0)
[2021-01-21 07:14] LABS: Alkaline Phosphatase 128 IU/L (40-130); Blood Urea Nitrogen 16 mg/dL (8-23); Calcium 9.2 mg/dL (8.5-10.5); Globulin 4.4 g/dL (1.3-4.6); Glucose 112 mg/dL (65-115); Total Bilirubin 0.4 mg/dL (0.15-1.2)
[2021-01-21 07:40] LABS: Alanine Aminotransferase 13 U/L (0-41); Aspartate Amino Transferase 18 U/L (0-40); Chloride 89 mmol/L (98-107); Osmolality Calculated 272 mOsm/kg (285-295); Sodium 130 mmol/L (136-145)
[2021-01-21 07:46] LABS: Potassium 3.4 mmol/L (3.5-5.1)
[2021-01-21 07:47] LABS: Anion Gap 14.4 (5-19); Carbon Dioxide 30 mmol/L (22-29)
[2021-01-21 07:48] LABS: Glomerular Filtration Rate 168.5 mL/min (90-130)
[2021-01-21 07:49] LABS: NT Pro B Type Natriuretic Pept 221 pg/mL (0-125); Total Protein 6.4 g/dL (6.6-8.7)
[2021-01-21] MEDS: fluconazole 100 mg Tablet 200 MG PO (08:14)
[2021-01-21] MEDS: potassium chloride ER 20 mEq Tablet 40 MEQ PO (08:15)
[2021-01-21] MEDS: nicotine 21 mg Patch 1 PATCH TRANSDERMA (08:15)
[2021-01-21] MEDS: metoprolol tartrate 25 mg Tablet PO (09:56)
[2021-01-21] MEDS: ALPRAZolam 0.5 mg Tablet 0.25 MG PO ×2 (13:11→21:32)
--- NOTE | 2021-01-21 13:40 | PC.PT ---
Attempted to see patient for PT intervention , however patient receiving nursing / respiratory care, so will check back tomorrow.
--- NOTE | 2021-01-21 17:12 | PM.TDS ---
Transfer Summary Providers Date of Admission: 01/16/21 05:52 Date of Discharge: 01/21/21 Attending Provider at Admission: Jose R Guthrie MD Attending Provider at Transfer: Shauna Toussaint MD Primary Care Provider: Michael Washington Anticipated Date of Transfer: Anticipated date of transfer: 01/21/21 Receiving Facility & Provider: Receiving Provider: [Dr. Angel] Receiving facility: [[place], [place] ] Diagnoses at Discharge Discharge Diagnosis (1) Sepsis: Status: Acute Qualifiers: Sepsis type: sepsis due to unspecified organism Sepsis acute organ dysfunction status: unspecified Qualified Code(s): A41.9 - Sepsis, unspecified organism (2) Loculated pleural effusion: Status: Acute (3) Hypokalemia: Status: Acute (4) CHF exacerbation: Status: Acute Qualifiers: Heart failure type: unspecified Qualified Code(s): I50.9 - Heart failure, unspecified (5) CAP (community acquired pneumonia): Status: Acute Qualifiers: Laterality: right Lung location: lower lobe of lung Qualified Code(s): J18.9 - Pneumonia, unspecified organism (6) Mass of right lung: Status: Acute (7) COPD (chronic obstructive pulmonary disease): Status: Acute Qualifiers: COPD type: unspecified COPD Qualified Code(s): J44.9 - Chronic obstructive pulmonary disease, unspecified Reason for Visit Reason for Visit: SOB Hospital Course Hospital Course Leon Rossi is a 60 year old male who has history of diabetes, hypertension, oxygen dependent COPD(night time 1.5-2lpm at baseline), CHF, active smoker, presented 01/15/21 with chief complaint of worsening shortness of breath for last 3 days with worsening of productive cough, lethargy, fatigue. He went to his PCP who increased his Lasix from 40 mg to 80 mg and incremented potassium supplementation. His symptoms did not improve along with orthopnea, PND, shortness of breath on exertion without any chest pain, subjective fevers. He is endorsing night sweats, 15 to 20 pound weight loss which is unintentional, he is smoking about 2 packs/day.CT evidence of loculated pleural collection seen on the right side containing some material gas densities findings worrisome for empyema. Patchy opacities and consolidation and masslike infiltrate seen in the RLL superimposed over loculated pleural fluid collections with underlying bronchogenic mass cannot be excluded as well. He underwent bronchoscopy 01/16/2021-showed edematous mucosa in RUL AND RLL and near complete occlusion of superior segment of RLL, copious mucus secretions aspirated and BAL sent for cytology, bacterial cultures, AFB and fungal cultures -cultures thus far with yeast, no bacteria identified. -Bedside ultrasound on 01/17 showed loculated pleural effusion and posterior lateral chest wall--14 Amharic pigtail placed on 01/17/2021 posteriorly and connected to continuous suction-400 cc turbid straw-colored pleural fluid drained; no air leak noted -Pleural fluid sample sent for microbiology cultures, fungal cultures, AFB and cell count and pleural fluid analysis -all cx negative thus far , cytology with acute inflammation, no malignant cells. Pleural fluid analysis with Neutrophilic predominant exudative pleural effusion with significantly low glucose, high LDH-parapneumonic effusion likely empyema. -Instilled 5 doses TPA 10 mg over last 3 days and drained total 1800 cc of fluid; -Repeat CT on 01/19 showed improved right lower lobe pleural effusion with insertion of right chest tube and improved aeration of right lower lobe with few locules of air in the pleural space. There was New/progressed right upper lobe and right lateral pleural fluid collection with few air-fluid levels measuring 12.2 x 7 cm and bronchovascular thickening along the right hilum with persistent dense wedge-shaped opacity with slight spiculation this measures 4.5 x 2.9 x 3.1 cm with bronchial obstruction. Patient had not permitted biopsy of this site on bronchoscopy ( has diagnosed ca, he states he is mentally not ready to receive a diagnosis of Ca) -Inserted right upper anterior chest tube into new loculated fluid collection on 01/19/2021-drained turbid straw-colored 200 cc fluid. Plan was to give TPA to see if we can drain more fluid, however on CXR this morning the drainage catheter was noted to have pulled out of the pleural space and was folded in the soft tissue of lateral chest wall. This was therefore removed today morning. - He has remained Afberile and hemodynamically stable during admission. - leukocytosis on admission was at 32, now persistently elevated between 18-25. --Currently empirically on vancomycin, Levaquin and Zosyn -02 reuirement 6lpm on admission, currently at 3lpm. -Blood cultures pending negative to date, urine bacterial antigens negative, Legionella antigen negative, MRSA nares nondetected -pleural fluid cx negative to date, BAl cx with resp hillary and yeast - BNP 800, echo 01/16/2021 normal LVEF 64%. No significant wall motion abnormalities. No filling defects. Some evidence of grade 1 LV diastolic dysfunction. Mild to moderate aortic insufficiency.,on Lasix 40 mg twice daily. - COPD Not in exacerbation - duoneb q6r hr prn wheezing or shortness of breath Given persisting leukocytosis and no gross clinical change/stalled clinical status in spite of chest tube x 2 with tPA instillation, 6 days of broad spectrum empiric abx, patient recommended transfer to [facility] for VATS. Discused with compounding pharmacy technician Dr. Davis. He has been accepted at [facility] and is being transferred in stable condition. Physical Exam Narrative: EXAM NARRATIVE: GEN: Awake, alert and oriented, no acute distress CVS: S1S2 N RS: reduced air entry into RLL, chest tube in place posteriorly Abd: Soft, nt/nd , bs+ [employer]: no focal neuro deficits TS Data Data Completed and Pending: Completed Studies During Hospitalization Category Date Time Status CT angio chest PE protcl [id number] Urge nt Cat Scan 01/16/21 03:[address] chest wo con 7 1250 Routine Cat Scan 01/19/21 14:00 Completed XR chest 1V stephanie ble [id number] AM LABS Exams 01/19/21 04:00 Completed XR chest 1V stephanie ble [id number] Routine Exams 01/17/21 04:00 Completed XR chest 1V stephanie ble [id number] Routine Exams 01/18/21 06:56 Completed XR chest 1V stephanie ble [id number] Routine Exams 01/19/21 20:41 Completed XR chest 1V stephanie ble 16020 Stat Exams 01/17/21 16:33 Completed XR chest 1V stephanie ble 17705 Stat Exams 01/21/21 06:33 Completed XR chest 1V stephanie ble [id number] Urgent Exams 01/16/21 02:08 Completed Cytology [PTH] Ro utine Pth 01/17/21 16:37 Completed CV echo lmt wo/w contras [id number] Rout ine Ultrasound 01/16/21 11:15 Completed Pending at discharge Category Date Time Status Anaerobic Culture Routine Lab 01/17/21 16:14 Results Body Fluid Cultur e & GS Routine Lab 01/17/21 16:14 Results CMP [Comprehensiv e Metabolic Panel] AM LABS Lab 01/22/21 04:00 Ordered Fungal Culture no t HR/SK/BL Routine Lab 01/16/21 17:00 Results Fungal Culture no t HR/SK/BL Routine Lab 01/17/21 16:14 Results Mycobacteria, Cul ture w/Fluor Routi ne Lab 01/16/21 17:00 Results Mycobacteria, Cul ture w/Fluor Routi ne Lab 01/17/21 16:14 Results Labs from last 24 hours 01/21/21 01/21/21 05:02 05:02 WBC 18.6 H RBC 4.89 Hgb 13.5 Hct 42.1 MCV 86.1 MCH 27.6 L MCHC 32.1 RDW 13.8 Plt Count 415 H MPV 10.0 Neut % (Auto) 71.2 Lymph % (Auto) 11.9 Warrick % (Auto) 10.4 Eos % (Auto) 1.7 Baso % (Auto) 0.6 Neut # (Auto) 13.25 H Lymph # (Auto) 2.2 Warrick # (Auto) 1.9 H Eos # (Auto) 0.3 Baso # (Auto) 0.1 Nucleated RBC % (a uto) 0 Nucleated RBCs # 0.0 Sodium 130 L Potassium 3.4 L Chloride 89 L Carbon Dioxide 30 H Anion Gap 14.4 BUN 16 Creatinine 0.5 L GFR Calculation 168.5 H Glucose 112 Calculated Osmolal ity 272 L Calcium 9.2 Total Bilirubin 0.4 AST 18 ALT 13 Alkaline Phosphata se 128 NT-Pro-B Natriuret Pep 221 H Total Protein 6.4 L Albumin 2.0 L Globulin 4.4 Addt'l Data from Hospital Stay: Laboratory Results WBC 18.6 10^3/uL (4.0 -10.0) H 01/21/21 05:02 RBC 4.89 10^6/uL (4.1 -5.3) 01/21/21 05:02 Hgb 13.5 g/dL (11.7-1 6.6) 01/21/21 05:02 Hct 42.1 % (42.0-52.0 ) 01/21/21 05:02 MCV 86.1 fL (80-94) 01/21/21 05:02 MCH 27.6 pg (28.0-34. 0) L 01/21/21 05:02 MCHC 32.1 g/dL (30.0-3 6.0) 01/21/21 05:02 RDW 13.8 % (12.1-15.1 ) 01/21/21 05:02 Plt Count 415 10^3/cmm (130 -400) H 01/21/21 05:02 MPV 10.0 fL (7.4-10.4 ) 01/21/21 05:02 Neut % (Auto) 71.2 % 01/21/21 05:02 Lymph % (Auto) 11.9 % 01/21/21 05:02 Warrick % (Auto) 10.4 % 01/21/21 05:02 Eos % (Auto) 1.7 % 01/21/21 05:02 Baso % (Auto) 0.6 % 01/21/21 05:02 Neut # (Auto) 13.25 10^3/uL (1. 8-7.7) H 01/21/21 05:02 Lymph # (Auto) 2.2 10^3/uL (0.8- 4.8) 01/21/21 05:02 Warrick # (Auto) 1.9 10^3/uL (0.2- 0.9) H 01/21/21 05:02 Eos # (Auto) 0.3 10^3/uL (0.0- 0.8) 01/21/21 05:02 Baso # (Auto) 0.1 10^3/uL (0.0- 0.1) 01/21/21 05:02 Nucleated RBC % (a uto) 0 % 01/21/21 05:02 Total Counted Cancelled 01/17/21 16:40 Nucleated RBCs # 0.0 /100WBC 01/21/21 05:02 Differential Comme nt Adjunct Psychology Professor 01/17/21 16:14 D-Dimer 3.64 ug/mIFEU (0- 0.59) H 01/16/21 00:12 Sodium 130 mmol/L (136-1 45) L 01/21/21 05:02 Potassium 3.4 mmol/L (3.5-5 .1) L 01/21/21 05:02 Chloride 89 mmol/L (98-107 ) L 01/21/21 05:02 Carbon Dioxide 30 mmol/L (22-29) H 01/21/21 05:02 Anion Gap 14.4 (5-19) 01/21/21 05:02 BUN 16 mg/dL (8-23) 01/21/21 05:02 Creatinine 0.5 mg/dL (0.7-1. 2) L 01/21/21 05:02 GFR Calculation 168.5 mL/min (90- 130) H 01/21/21 05:02 Glucose 112 mg/dL (65-115 ) 01/21/21 05:02 POC Glucose 132 mg/dL (70-110 ) H 01/20/21 10:50 Calculated Osmolal ity 272 mOsm/kg (285- 295) L 01/21/21 05:02 Lactic Acid 3.2 mmol/L (0.5-2 .2) H 01/16/21 02:18 Calcium 9.2 mg/dL (8.5-10 .5) 01/21/21 05:02 Magnesium 2.1 mg/dL (1.7-2. 3) 01/17/21 03:23 Total Bilirubin 0.4 mg/dL (0.15-1 .2) 01/21/21 05:02 AST 18 U/L (0-40) 01/21/21 05:02 ALT 13 U/L (0-41) 01/21/21 05:02 Alkaline Phosphata se 128 IU/L (40-130) 01/21/21 05:02 Lactate Dehydrogen ase 148 U/L (135-225) 01/16/21 00:12 Troponin T Baselin e 13 ng/L (0-15) 01/16/21 00:12 NT-Pro-B Natriuret Pep 221 pg/mL (0-125) H 01/21/21 05:02 Total Protein 6.4 g/dL (6.6-8.7 ) L 01/21/21 05:02 Albumin 2.0 g/dL (3.5-5.2 ) L 01/21/21 05:02 Globulin 4.4 g/dL (1.3-4.6 ) 01/21/21 05:02 Procalcitonin 1.35 ng/mL (0-0.5 ) H 01/16/21 00:12 Fluid Color Pale yellow 01/17/21 16:14 Fluid Appearance Cloudy 01/17/21 16:14 Fluid Specific Gra v 1.010 01/17/21 16:14 Fluid pH 8.0 01/17/21 16:14 Fluid WBC 65626 /uL 01/17/21 16:14 Fluid RBC 3.000 10^3/uL 01/17/21 16:14 Fluid Tot Cell Cou nt Adjunct Psychology Professor 01/17/21 16:14 Fld Polynuclear WB Cs # 23.565 01/17/21 16:14 Fld Polynuclear WB Cs % 83.900 % 01/17/21 16:14 Fl Mononucl WBCs # (Auto) 4.507 01/17/21 16:14 Fl Mononuclear % A uto 16.100 % 01/17/21 16:14 Fluid Glucose 2.0 mg/dL 01/17/21 16:14 Fluid Albumin 2.3 g/dL 01/17/21 16:14 Fluid LDH 2354 U/L 01/17/21 16:14 Fluid Amylase 18 U/L 01/17/21 16:14 Fluid Alk Phosphat ase 5 IU/L 01/17/21 16:14 Fluid Cholesterol 74 mg/dL (0-200) 01/17/21 16:14 Fluid Triglyceride s 52 mg/dL (0-150) 01/17/21 16:14 Fluid Uric Acid 4 mg/dL 01/17/21 16:14 Pleural Color Cancelled 01/17/21 16:40 Pleural Appearance Cancelled 01/17/21 16:40 Pleural WBC Cancelled 01/17/21 16:40 Pleural RBC Cancelled 01/17/21 16:40 Pleural Other Cell s Cancelled 01/17/21 16:40 Pleural Polynuclea r % Cancelled 01/17/21 16:40 Pleural Mononuclea r % Cancelled 01/17/21 16:40 Pleural Total Prot ein 4.7 g/dL 01/17/21 16:14 Vancomycin Trough 19.0 ug/mL (10-15 ) H 01/20/21 02:40 SARS-CoV-2 Ag (Rap id) Negative (Negati ve) 01/16/21 02:31 Path Cons w/Slide Cancelled 01/17/21 16:40 Impressions Chest CTA 01/16/21 03:01 IMPRESSION: 1. There is no evidence for pulmonary emboli. 2. There is a loculated pleural fluid collection seen on the right containing some mottled gas densities, findings worrisome for empyema. 3. Patchy opacities, consolidation and masslike infiltrates are seen in the right lower lobe superimposed over the loculated pleural fluid collection. Aspiration pneumonia with anaerobic organisms could have this appearance. Underlying bronchogenic mass cannot be excluded as well. Radiation Dose CTDIVOL = (mGy): DLP = 1226.2 (mGy-cm) Chest CT 01/19/21 14:00 IMPRESSION: 1. Improved right lower lobe pleural effusion with insertion of right chest tube. Improved aeration right lower lobe with a few locules of air in the pleural space. 2. New/progressed right upper lobe and right lateral pleural fluid collection with a few air-fluid levels measuring 12.2 x 7.0 cm. 3. Small amount of fluid along the right fissure and right middle lobe anteriorly. 4. Bronchovascular thickening along the right hilum with persistent dense wedge-shaped opacity with slight spiculation. This measures 4.5 x 2.9 x 3.1 cm with bronchial obstruction. This is unchanged from previous and neoplasm not excluded. This can be further evaluated with bronchoscopy 5. No other interval changes. Chest X-Ray 01/21/21 06:33 IMPRESSION: 1. The superior right small bore drainage catheter has pulled out of the pleural space and is folded in the superficial soft tissue of the lateral chest wall. 2. Loculated right hydropneumothorax. ADDENDUM: 01/21/21 0915 THIS REPORT CONTAINS FINDINGS THAT MAY BE CRITICAL TO PATIENT CARE. The exam findings were verbally communicated by me via telephone conference to DR. Burgess at 9:07 AM CDT on 01/21/2021. The findings were acknowledged and understood. Microbiology 01/17/21 16:14 Pleural Fluid Gram Stain - Final 01/17/21 16:14 Pleural Fluid Anaerobic Culture - Preliminary 01/17/21 16:14 Pleural Fluid Body Fluid Culture - Final 01/21/21 05:02 Blood Cryptococcal Antigen - negative 01/16/21 02:31 Blood Blood Culture - Final NO GROWTH AFTER 5 DAYS 01/16/21 02:16 Blood Blood Culture - Final NO GROWTH AFTER 5 DAYS 01/16/21 17:00 Pleural Fluid Fungal Smear - Preliminary- NGTD 01/17/21 16:14 Pleural Fluid Fungal Smear - Preliminary- no growth 01/17/21 16:14 Body Fluids - Pleura,Rt Lung Mycobacterial Smear - Preliminary no AFB 01/16/21 17:00 Bronchial Brushings Mycobacterial Smear - Preliminary negative 01/16/21 17:00 Lung Right Lower Lobe Gram Stain and cx: mixed resp hillary 01/16/21 17:00 Lung Right Lower Lobe Bronchoalveolar Lavage Culture - Yeast 01/17/21 03:30 Nose MRSA Culture - negative 01/17/21 05:30 Urine,Voided Legionella Urinary Antigen - negative 01/17/21 05:30 Urine,Voided Bacterial Antigens - negative Pertinent Labs During Stay 01/16/21 01/16/21 01/17/21 00:12 00:12 10:05 NT-Pro-B Natriuret Pep 873 H Procalcitonin 1.35 H Vancomycin Trough Cancelled 01/17/21 01/18/21 01/19/21 17:23 18:48 09:14 NT-Pro-B Natriuret Pep 333 H Procalcitonin Vancomycin Trough 14.3 18.8 H 01/20/21 01/21/21 02:40 05:02 NT-Pro-B Natriuret Pep 221 H Procalcitonin Vancomycin Trough 19.0 H [facility] [address] [place] [id number] JEFERSON KIM, [employer] PUBLISHING ASSOCIATE Becky: 01/17/21-8330 Status: COMP Req : [id number] Recd: 01/17/21-[address]: DatarAman MD Ordered: BDY Fluid Whitney, BF SG, Alk Phos Fluid, BF Glu, BF Alb, BF LDH, BF Lizette, BF Chol, BF Trig, BF Uric, BF pH, PLF Total Prot Comments: Comment right pleural effusion Test Low Normal High Flag Reference Site Color, BF PALE YELLOW BF Appearance CLOUDY Body Fluid WBC 86002 /uL BF RBC 3.000 10^3/uL BF Warrick % WBC 16.100 % BF Poly % Cells 83.900 % BF Warrick # 4.507 BF Poly # Cells 23.565 BF SG 1.010 Alk Phos Fluid 5 IU/L No established ranges or validation studies for analytes on body fluids. BF Glu 2.0 mg/dL NOTE NO REFERENCE RANGE BF Alb 2.3 g/dL NOTE NO REFERENCE RANGE BF LDH 2354 U/L NOTE NO REFERENCE RANGE BF Lizette 18 U/L NOTE NO REFERENCE RANGE BF Chol 74 0-200 mg/dL BF Trig 52 0-150 mg/dL BF Uric Acid 4 mg/dL NOTE NO REFERENCE RANGE BF pH 8.0 NOTE NO REFERENCE RANGE PLF Total Prot 4.7 g/dL NOTE NO REFERENCE RANGE Vitals: Last Vital Signs Temp 97.8 F 01/21/21 16:00 Pulse 86 01/21/21 16:00 Resp 18 01/21/21 16:00 BP 184/95 01/21/21 16:00 Pulse Ox 95 01/21/21 16:00 TS Medications Medications Home Medications albuterol sulfate [Ventolin HFA] 2 puff INHALATION Q6H PRN 01/16/21 [History Confirmed 01/16/21] amitriptyline 100 mg PO DAILY 01/16/21 [History Confirmed 01/16/21] buspirone 10 mg PO TID 01/16/21 [History Confirmed 01/16/21] furosemide 40 mg PO DAILY 01/16/21 [History Confirmed 01/16/21] metoprolol tartrate 25 mg PO DAILY 01/16/21 [History Confirmed 01/16/21] potassium chloride 20 meq PO DAILY 01/16/21 [History Confirmed 01/16/21] tiotropium bromide [Spiriva with HandiHaler] 1 cap INHALATION DAILY 01/16/21 [History Confirmed 01/16/21] Active Medications Acetaminophen (Acetaminophen 500 Mg Tablet) 500 mg PO Q4H PRN PRN Reason: pain Last Admin: 01/21/21 16:27 Dose: 500 mg Documented by: Albuterol/Ipratropium (Ipratropium-Albuterol 3 Ml Neb) 3 ml INHALATION Q6H PRN PRN Reason: SHORTNESS OF BREATH Last Admin: 01/18/21 14:56 Dose: 3 ml Documented by: Alprazolam (Alprazolam 0.5 Mg Tablet) 0.25 mg PO BEDTIME LANDON Last Admin: 01/20/21 21:49 Dose: 0.25 mg Documented by: Alprazolam (Alprazolam 0.5 Mg Tablet) 0.25 mg PO TID PRN PRN Reason: ANXIETY Last Admin: 01/21/21 13:11 Dose: 0.25 mg Documented by: Amitriptyline HCl (Amitriptyline 25 Mg Tablet) 100 mg PO BEDTIME LANDON Last Admin: 01/20/21 21:48 Dose: 100 mg Documented by: Buspirone HCl (Buspirone 10 Mg Tablet) 10 mg PO TID [facility] Last Admin: 01/21/21 15:41 Dose: Not Given Documented by: Fluconazole (Fluconazole 100 Mg Tablet) 200 mg PO DAILY [facility] Last Admin: 01/21/21 08:14 Dose: 200 mg Documented by: Furosemide (Furosemide 10 Mg/Ml Sdv 4ml) 40 mg IVP Q12H LANDON Last Admin: 01/21/21 04:30 Dose: 40 mg Documented by: Piperacillin Sod/Tazobactam (Sod 3.375 gm/ Sodium Chloride) 50 mls @ 12.5 mls/hr IV Q8H [facility]; Protocol Last Admin: 01/21/21 13:12 Dose: 12.5 mls/hr Documented by: Lactulose (Lactulose Oral Liq 20 Gm/30 Ml Udc) 15 gm PO Q12H [facility] Last Admin: 01/21/21 08:15 Dose: Not Given Documented by: Levofloxacin (Levofloxacin 750 Mg Tablet) 750 mg PO DAILY@0600 [facility]; Protocol Stop: 01/22/21 05:59 Last Admin: 01/21/21 05:37 Dose: 750 mg Documented by: Metoprolol Tartrate (Metoprolol Tartrate 25 Mg Tablet) 25 mg PO BID@0900,2100 [facility] Last Admin: 01/21/21 09:56 Dose: 25 mg Documented by: Nicotine (Nicotine 21 Mg Patch) 1 patch TRANSDERMA DAILY [facility] Last Admin: 01/21/21 08:15 Dose: 1 patch Documented by: Ondansetron HCl (Ondansetron 2 Mg/Ml Sdv 2 Ml) 4 mg IVP Q6H PRN PRN Reason: NAUSEA AND VOMITING Potassium Chloride (Potassium Chloride Er 20 Meq Tablet) 40 meq PO DAILY [facility] Last Admin: 01/21/21 08:15 Dose: 40 meq Documented by: Senna/Docusate Sodium (Sennosides-Docusate Tablet) 1 tab PO DAILY [facility] Last Admin: 01/21/21 08:15 Dose: Not Given Documented by: Discharge Plan Discharge Patient Disposition: Home Condition: Serious Prescriptions: No Action furosemide 40 mg tablet 40 mg PO DAILY RF: 0 buspirone 10 mg tablet 10 mg PO TID RF: 0 Ventolin HFA 90 mcg/actuation HFA aerosol inhaler 2 puff INHALATION Q6H PRN (Reason: Shortness Of Breath) RF: 0 amitriptyline 100 mg tablet 100 mg PO DAILY RF: 0 metoprolol tartrate 25 mg tablet 25 mg PO DAILY RF: 0 Spiriva with HandiHaler 18 mcg capsule, w/inhalation device 1 cap INHALATION DAILY RF: 0 potassium chloride 20 mEq tablet extended release 20 meq PO DAILY RF: 0 Discharge Orders: Transfer Out of Facility (Order); Ordered 01/21/21 Ordered By: Shauna Toussaint Patient Instructions: Opioid Safety Transfer Attestations Time Spent in Transfer Care*: greater than 30 min Quality Metrics Clinical Quality Measures: During this hospital stay, did patient experience: None Coding Level of Care Code Acute Chief Underwriter for [facility] Fwd Diagnoses Sepsis A41.9 Sepsis type: sepsis due to unspecified organism Sepsis acute organ dysfunction status: unspecified Loculated pleural effusion J90 Hypokalemia E87.6 CHF exacerbation I50.9 Heart failure type: unspecified CAP (community acquired pneumonia) J18.9 Laterality: right Lung location: lower lobe of lung Mass of right lung R91.8 COPD (chronic obstructive pulmonary disease) J44.9 COPD type: unspecified COPD
--- NOTE | 2021-01-21 18:51 | PC.NURSE ---
Report called to Marlene Shine RN at [facility]. RM [id number] please call when patient leaves the hospital at [phone]
--- NOTE | 2021-01-21 19:11 | PC.NURSE ---
Report to Nafisa GONZALEZ at this time.
--- NOTE | 2021-01-21 22:29 | PC.NURSE ---
pt left with lidya green, all belongings and home meds sent with pt.
== END 2021-01-21 22:29 | disposition short-term general hospital (02) | DRG 871 ==
LOC: ER 01:38 → ICU 07:32 → MEDSURG 07:32 → ICU 01-17 18:59 → MEDSURG 01-20 07:43
PROVIDERS: Internal Medicine Pulmonary Disease; Admitting Provider Internal Medicine; Emergency Provider Physician Assistant; PCP Family Medicine; Visit Provider Student in an Organized Health Care Education/Training Program
PROC: 0BJ08ZZ Inspection of Tracheobronchial Tree, Via Natural or Artificial Opening Endoscopic (ICD-10-PCS; CPT 31622; principal; 2021-01-16 15:00)
DX: A41.9 Sepsis, unspecified organism (principal); I50.33 Acute on chronic diastolic (congestive) heart failure; J18.9 Pneumonia, unspecified organism; J96.00 Acute respiratory failure, unspecified whether with hypoxia or hypercapnia; J44.0 Chronic obstructive pulmonary disease with (acute) lower respiratory infection; E87.2 Acidosis; J93.9 Pneumothorax, unspecified; E11.9 Type 2 diabetes mellitus without complications; I11.0 Hypertensive heart disease with heart failure; Z99.81 Dependence on supplemental oxygen; F17.210 Nicotine dependence, cigarettes, uncomplicated; D47.3 Essential (hemorrhagic) thrombocythemia; E87.6 Hypokalemia; R91.8 Other nonspecific abnormal finding of lung field; I48.91 Unspecified atrial fibrillation
CPT/HCPCS: 31624; 36415; 36416; 71045; 71250; 71275; 80053; 80202; 80500; 82042; 82150; 82465; 82945; 82962; 83605; 83615; 83735; 83880; 83986; 84075; 84145; 84157; 84315; 84478; 84484; 84560; 85025; 85378; 86403; 87015; 87040; 87070; 87075; 87102; 87116; 87205; 87206; 87327; 87426; 87449; 87641; 87801; 88112; 88305; 89050; 93005; 94640; 94660; 96365; 96366; 96367; 96375; 97161; 97530; 99285; C8924; J0330; J1885; J1940; J2060; J2250; J2543; J2704; J2997; J3370; J3480; J7030; Q9956; Q9967

== ENCOUNTER 2024-09-18 00:59 | Emergency (ER) | payer MEDICARE, SELFPAY ==
[2024-09-18 01:00] VITALS: BP 122/49; PULSE 80; RESP 18; TEMP 37.9; O2SAT 89; BMI 38.7
--- NOTE | 2024-09-18 01:07 | CTR_ITS ---
PROCEDURE INFORMATION: Exam: CT Head Without Contrast Exam date and time: 09/18/2024 1:44 AM Age: 64 years old Clinical indication: Altered mental status/memory loss; Additional info: Encephalopathy, altered mental status TECHNIQUE: Imaging protocol: Computed tomography of the head without contrast. Radiation optimization: All CT scans at this facility use at least one of these dose optimization techniques: automated exposure control; mA and/or kV adjustment per patient size (includes targeted exams where dose is matched to clinical indication); or iterative reconstruction. COMPARISON: No relevant prior studies available. RADIATION DOSE METRICS: Total DLP (mGy-cm): 1343.28 FINDINGS: Brain: Normal. No hemorrhage. Unremarkable white matter. No mass effect. Cerebral ventricles: No ventriculomegaly. Paranasal sinuses: Visualized sinuses are unremarkable. No fluid levels. Mastoid air cells: Visualized mastoid air cells are well aerated. Bones: Unremarkable. No acute fracture. Soft tissues: Unremarkable. CT/CT head wo con* [id number] IMPRESSION: No acute intracranial abnormality.
--- NOTE | 2024-09-18 01:07 | XRR_ITS ---
PROCEDURE INFORMATION: Exam: XR Chest Exam date and time: 09/18/2024 1:22 AM Age: 64 years old Clinical indication: Other: AMS; Additional info: Weakness TECHNIQUE: Imaging protocol: Radiologic exam of the chest. Views: 1 view. COMPARISON: CR XR chest 1V portable [id number] 01/21/2021 6:49 AM FINDINGS: Tubes, catheters and devices: Right chest tubes have been removed. Lungs: Interval resolution of right lung airspace disease. Pleural spaces: Resolved right pleural effusion. Heart/Mediastinum: Unremarkable. No cardiomegaly. Bones/joints: Unremarkable. XR/XR chest 1V portable [id number] IMPRESSION: No acute cardiopulmonary process.
--- NOTE | 2024-09-18 01:17 | W.ED.AMS ---
HPI - Altered Mental Status General: Chief Complaint: Altered Mental Status Stated Complaint: AMS Time Seen by Provider: 09/18/24 01:01 History of Present Illness: This is a 64-year-old man with a history of diabetes, hypertension, COPD, CHF, obesity who presents the emergency room by ambulance from snf with decreased mentation. But somnolent on presentation. Last known well time is unknown. The nurse who called the ambulance had not been told how he was earlier in the day. I found him sitting on the floor. He has a temp of 100.2. He is extremely somnolent but does arouse to painful stimulation. Related Data Home Medications ?Medication ?Instructions ?Recorded ?Confirmed albuterol sulfate 90 mcg/actuation 2 puff inhalation Q6H PRN 01/16/21 01/16/21 aerosol inhaler (Ventolin HFA) Shortness Of Breath amitriptyline 100 mg tablet 100 mg PO DAILY 01/16/21 01/16/21 buspirone 10 mg tablet 10 mg PO TID 01/16/21 01/16/21 furosemide 40 mg tablet 40 mg PO DAILY 01/16/21 01/16/21 metoprolol tartrate 25 mg tablet 25 mg PO DAILY 01/16/21 01/16/21 potassium chloride 20 mEq 20 meq PO DAILY 01/16/21 01/16/21 tablet,extended release tiotropium bromide 18 mcg capsule 1 cap inhalation DAILY 01/16/21 01/16/21 with inhalation device (Spiriva with HandiHaler) Allergies Allergy/AdvReac Type Severity Reaction Status Date / Time azithromycin Allergy ADR-Numbnes Verified 01/17/21 18:56 s Review of Systems General: Reports: ROS unobtainable due to medical condition PFS ED PFSH: Medical History (Updated 09/18/24 @ 03:22 by Becca Hernandez MD) Diabetes HTN (hypertension) COPD (chronic obstructive pulmonary disease) CHF (congestive heart failure) Surgical History History of appendectomy History of cholecystectomy Family History Other Diabetes Social History Smoking and tobacco/nicotine status: current every day tobacco/nicotine user cigarettes Alcohol intake: never Substance/Drug Use: never Housing: House Physical Exam Narrative: General: Somnolent Skin: Warm, dry Head: Normocephalic, atraumatic. Neck: Supple, trachea midline. Eye: Extraocular movements are intact. Ears, nose, mouth and throat: Dry oral mucosa. Cardiovascular: Regular rate and rhythm, Normal peripheral perfusion. Respiratory: Lungs are clear to auscultation, respirations are non-labored, breath sounds are equal, Symmetrical chest wall expansion. Gastrointestinal: Soft, Nontender, Non distended, Normal bowel sounds. Musculoskeletal: no deformity. Neurological: Somnolent arouses to painful stimuli appears to be moving all his extremities and does not have any obvious facial droop., Psychiatric: unable to assess. Course Vital Signs: Vital signs: Vital Signs Temperature 100.2 F H 09/18/24 01:00 Pulse Rate 80 09/18/24 01:00 Respiratory Rate 18 09/18/24 01:00 Blood Pressure 122/49 09/18/24 01:00 Pulse Oximetry 89 L 09/18/24 01:00 Oxygen Delivery Me thod Room Air 09/18/24 01:00 MDM - Altered Mental Status Medical Decision Making Medical decision making: Differential diagnosis including but not limited to and based on the above HPI, review of systems and physical exam: In this patient with altered mental status: Stroke. Hypoglycemia. Metabolic encephalopathy. Infections such as pneumonia, urinary tract infection, Covid-19, Influenza. Electrolyte abnormalities such as hypernatremia. Renal failure / uremia. Hepatic encephalopathy. Hypoxemia. Hypercapnic respiratory failure. Psychosis. Drug or alcohol intoxication. Medication overdose. Orders placed to evaluate differential diagnosis based on the above differential, HPI and physical exam EKG: Time 1:19 AM. Rate 78. Normal sinus rhythm, No ST-T changes, no ectopy, right bundle branch block, This was reviewed and interpreted by myself the ER physician at 1:24 AM Chest x-ray: No acute process. No infiltrate. No pneumothorax. This was reviewed and interpreted by myself the emergency room physician. I also reviewed the radiology report. CT head: No acute intracranial process. no intracranial hemorrhage, no evidence of infarct. no evidence of acute fracture.This was reviewed and interpreted by myself the ER physician. Lab Review: Laboratory results were reviewed and interpreted by myself the emergency room physician. Does have some leukocytosis with a white count of 17,000, however this is at his baseline. Anemia with a hemoglobin of 8.6. However last count here was in 2020. Some renal insufficiency with BUN/creatinine of 21 and 1.4. Flu COVID and RSV are negative. I reviewed the patient's medical record. Reexamination: After extensive workup patient was still extremely somnolent. At this point with everything being negative I gave him a dose of Narcan to which he responded immediately. He is now alert and oriented. He was angry that he was sent to the emergency room. Assessment and plan: Narcotic overdose Dehydration ? Normal saline bolus, Narcan, patient improved - Discharged home - Discussed plan with patient. Answered any questions. - Evaluation and treatment of this problem were appropriate in the emergency setting. Lab Data 09/18/24 01:22 09/18/24 01:[address] 09/18/24 01:07 IMPRESSION: No acute intracranial abnormality. Laboratory Results WBC 17.28 10^3/uL (3.29-11.43) H 09/18/24 01:22 RBC 3.46 10^6/uL (3.85-5.65) L 09/18/24 01:22 Hgb 8.60 g/dL (11.27-16.99) L 09/18/24 01:22 Hct 29.5 % (37-53) L 09/18/24 01:22 MCV 85.3 fl (82-101) 09/18/24 01:22 MCH 24.9 pg (27-33) L 09/18/24 01:22 MCHC 29.2 g/dL (30-55) L 09/18/24 01:22 RDW Not Reportable 09/18/24 01:22 Plt Count 387 10^3/cmm (157-399) 09/18/24 01:22 MPV 9.0 fL (7.4-10.4) 09/18/24 01:22 Neut % (Auto) 88.6 % 09/18/24 01:22 Lymph % (Auto) 4.6 % 09/18/24 01:22 [place] % (Auto) 5.9 % 09/18/24 01:22 Eos % (Auto) 0.1 % 09/18/24 01:22 Baso % (Auto) 0.5 % 09/18/24 01:22 Neut # (Auto) 15.30 10^3/uL (1.8-7.7) H 09/18/24 01:22 Lymph # (Auto) 0.8 10^3/uL (0.8-4.8) 09/18/24 01:22 [place] # (Auto) 1.0 10^3/uL (0.2-0.9) H 09/18/24 01:22 Eos # (Auto) 0.0 10^3/uL (0.0-0.8) 09/18/24 01:22 Baso # (Auto) 0.1 10^3/uL (0.0-0.1) 09/18/24 01:22 Nucleated RBC % (auto) 0 % 09/18/24 01:22 Nucleated RBCs # 0.0 /100WBC 09/18/24 01:22 Polychromasia 1+ H 09/18/24 01:22 Anisocytosis 3+ H 09/18/24 01:22 Microcytosis 2+ H 09/18/24 01:22 Macrocytosis 1+ H 09/18/24 01:22 Sodium 134 mmol/L (136-145) L 09/18/24 01:22 Potassium 3.5 mmol/L (3.5-5.1) 09/18/24 01:22 Chloride 95 mmol/L (98-107) L 09/18/24 01:22 Carbon Dioxide 29 mmol/L (22-29) 09/18/24 01:22 Anion Gap 13.5 (5-19) 09/18/24 01:22 BUN 21 mg/dL (8-23) 09/18/24 01:22 Creatinine 1.4 mg/dL (0.7-1.2) H 09/18/24 01:22 GFR Calculation 50.7 mL/min (90-130) L 09/18/24 01:22 Glucose 127 mg/dL (65-115) H 09/18/24 01:22 Calculated Osmolality 283 mOsm/kg (285-295) L 09/18/24 01:22 Calcium 9.1 mg/dL (8.5-10.5) 09/18/24 01:22 Total Bilirubin 0.6 mg/dL (0.15-1.2) 09/18/24 01:22 AST 24 U/L (0-40) 09/18/24 01:22 ALT 15 U/L (0-41) 09/18/24 01:22 Alkaline Phosphatase 159 U/L (40-130) H 09/18/24 01:22 Total Protein 7.9 g/dL (6.6-8.7) 09/18/24 01:22 Albumin 3.4 g/dL (3.5-5.2) L 09/18/24 01:22 Globulin 4.5 g/dL (1.3-4.6) 09/18/24 01:22 Urine Color Yellow (Yellow) 09/18/24 02:30 Urine Appearance Clear (CLEAR) 09/18/24 02:30 Urine pH 6.0 (5-7) 09/18/24 02:30 Ur Specific [place] 1.015 (1.005-1.030) 09/18/24 02:30 Urine Protein Negative (Negative) 09/18/24 02:30 Urine Glucose (UA) 2+ (Normal) H 09/18/24 02:30 Urine Ketones Negative (Negative) 09/18/24 02:30 Urine Blood Negative (Negative) 09/18/24 02:30 Urine Nitrate Negative (Negative) 09/18/24 02:30 Urine Bilirubin Negative (Negative) 09/18/24 02:30 Urine Urobilinogen 1.0 mg/dL (Negative) 09/18/24 02:30 Ur Leukocyte Esterase Negative (Negative) 09/18/24 02:30 Urine RBC None /hpf (0-2) 09/18/24 02:30 Urine WBC None /hpf (0-5) 09/18/24 02:30 Ur Squamous Epith Cells None /hpf (0-5) 09/18/24 02:30 Amorphous Sediment Not Reportable 09/18/24 02:30 Urine Bacteria None /hpf (NONE) 09/18/24 02:30 Influenza A (PCR) Negative (Negative) 09/18/24 01:22 Influenza Type B (PCR) Negative (Negative) 09/18/24 01:22 RSV (PCR) Negative (Negative) 09/18/24 01:22 SARS-CoV-2 (PCR) Negative (Negative) 09/18/24 01:22 All radiology interpretation(s) finalized by discharge Discharge Plan Discharge Patient Disposition: Home Clinical Impression: Overdose opiate Condition: Stable Prescriptions: No Action furosemide 40 mg tablet 40 mg PO DAILY buspirone 10 mg tablet 10 mg PO TID Ventolin HFA 90 mcg/actuation HFA aerosol inhaler 2 puff INHALATION Q6H PRN (Reason: Shortness Of Breath) amitriptyline 100 mg tablet 100 mg PO DAILY metoprolol tartrate 25 mg tablet 25 mg PO DAILY Spiriva with HandiHaler 18 mcg capsule, w/inhalation device 1 cap INHALATION DAILY potassium chloride 20 mEq tablet extended release 20 meq PO DAILY Discharge Orders: Discharge ED (Routine); Ordered 09/18/24 Ordered By: Becca Hernandez Referrals: Michael Washington [Primary Care Provider] - Discharge Diet: As Directed Discharge Activity: Increase activity as tolerated Patient Instructions: Altered Mental Status (ED), Opioid Safety, Pain Management Activity Restrictions/Additional Instructions: Thank you for choosing [facility] for your healthcare needs today. Please realize this is an emergency room and that we are providing you with a medical screening exam and this may not be complete and all inclusive of all the testing and or work up that you may need to determine your ailment or severity of your illness. You have been screened and evaluated and felt safe for discharge. Health conditions do change or evolve sometimes and as such it is important that you follow up with your Primary Doctor to be re checked, 3-5 days is a general good time frame for follow up. You are always welcome to return to the ED for re assessment if your symptoms are worsening or you have new concerns Print Language: Sinhala Coding Level of Care Code ED Security Tech for Zaida Jordan
--- NOTE | 2024-09-18 01:19 | ECG_ITS ---
[facility] 2024-[facility]18 Pat Name: Leon Rossi Department: Room: Gender: Male Video And Sound Recorder: : [id number] Requested By: Becca Artis Order Number: [id number] Jean Marie MD: Ronaldo Salcido M.D. 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 [email or web address]
[2024-09-18 01:22] LABS: Basophils % 0.5 %; Eosinophils % 0.1 %; Mean Corpuscular HGB Conc 29.2 g/dL (30-55); Nucleated Red Blood Cells % 0 %
[2024-09-18 01:28] LABS: Basophils # 0.1 10^3/uL (0.0-0.1); Hematocrit 29.5 % (37-53); Lymphocytes # 0.8 10^3/uL (0.8-4.8); Lymphocytes % 4.6 %; Mean Corpuscular Hemoglobin 24.9 pg (27-33); Mean Corpuscular Volume 85.3 fl (82-101); Monocytes % 5.9 %; Neutrophils % 88.6 %; Platelet Count 387 10^3/cmm (157-399); Red Blood Count 3.46 10^6/uL (3.85-5.65); White Blood Count 17.28 10^3/uL (3.29-11.43)
[2024-09-18 01:43] LABS: Alanine Aminotransferase 15 U/L (0-41); Albumin Level 3.4 g/dL (3.5-5.2); Alkaline Phosphatase 159 U/L (40-130); Anion Gap 13.5 (5-19); Aspartate Amino Transferase 24 U/L (0-40); Blood Urea Nitrogen 21 mg/dL (8-23); Calcium 9.1 mg/dL (8.5-10.5); Carbon Dioxide 29 mmol/L (22-29); Chloride 95 mmol/L (98-107); Creatinine Clr Calc Pharmacy 68.1182; Globulin 4.5 g/dL (1.3-4.6); Glomerular Filtration Rate 50.7 mL/min (90-130); Glucose 127 mg/dL (65-115); Osmolality Calculated 283 mOsm/kg (285-295); Potassium 3.5 mmol/L (3.5-5.1); Sodium 134 mmol/L (136-145); Total Bilirubin 0.6 mg/dL (0.15-1.2); Total Protein 7.9 g/dL (6.6-8.7)
[2024-09-18 01:55] LABS: Add RBC Morph Yes; RBC Morph Comp No; Slide Review Slide Review Perform
[2024-09-18 01:56] LABS: Anisocytosis 3+
[2024-09-18 01:57] LABS: Microcytosis 2+
[2024-09-18 01:59] LABS: Macrocytosis 1+; Polychromasia 1+
[2024-09-18 02:03] LABS: Influenza A NEGATIVE (Negative); Influenza B NEGATIVE (Negative); Respiratory Syncytial Virus Ce NEGATIVE (Negative); SARS-CoV-2 PCR NEGATIVE (Negative)
[2024-09-18] MEDS: sodium chloride 0.9% 1,000 ML 999 ML IV (02:04)
[2024-09-18 02:34] LABS: Bilirubin Urine Negative (Negative); Blood Urine Negative (Negative); Glucose Urine UA 2+ (Normal); Ketones Urine Negative (Negative); Leukocyte Esterase Urine Negative (Negative); Nitrate Urine Negative (Negative); Protein Urine Negative (Negative); Specific Gravity, Urine 1.015 (1.005-1.030); Urine Appearance Clear (CLEAR); Urine Color Yellow (Yellow)
[2024-09-18] MEDS: naloxone 0.4 mg/ml SDV IVP (03:11)
--- NOTE | 2024-09-18 03:21 | PC.NURSE ---
Pt. alert and oriented x 3 after narcan. Pt. angry because he was sent to the ER.
[2024-09-18 04:29] VITALS: BP 116/51; PULSE 69; RESP 20; O2SAT 98
[2024-09-18 05:42] VITALS: BP 115/52; PULSE 64; RESP 20; O2SAT 97
== END 2024-09-18 05:45 | disposition home or self-care (01) ==
PROVIDERS: Emergency Provider Emergency Medicine; PCP Family Medicine
DX: T40.601A Poisoning by unspecified narcotics, accidental (unintentional), initial encounter (principal); X58.XXXA Exposure to other specified factors, initial encounter; Z11.52 Encounter for screening for COVID-19; F17.210 Nicotine dependence, cigarettes, uncomplicated; J44.9 Chronic obstructive pulmonary disease, unspecified; E11.9 Type 2 diabetes mellitus without complications; I11.0 Hypertensive heart disease with heart failure; I50.9 Heart failure, unspecified
CPT/HCPCS: 36415; 70450; 71045; 80053; 81001; 85025; 87040; 87637; 93005; 96361; 96374; 99285; J2310; J7030